=== PATIENT | male | born 1935 | race Caucasian/White ===

== ENCOUNTER → 2017-10-30 00:58 | Outpatient (CLI) | payer MEDICARE, SELFPAY ==
--- NOTE | 2017-10-30 12:37 | DI.REPORT_ITS ---
SYMPTOM/DIAGNOSIS: COUGH, R05 PA AND LATERAL CHEST: 10/30 The heart is mildly enlarged. Minimal streaky infrapulmonary radiodensities are noted in the lung bases, probably unchanged from previous examination of March 2011. No acute infiltrates seen. No pleural effusion seen. CONCLUSION: No evidence of acute disease.
== END ==
PROVIDERS: PCP Family Medicine; Visit Provider Family Medicine
DX: R05 Cough (principal)
CPT/HCPCS: 71046

== ENCOUNTER → 2017-10-30 15:08 | Outpatient (CLI) | payer MEDICARE, SELFPAY | PROVIDERS: PCP Family Medicine; Visit Provider Internal Medicine Hematology & Oncology | DX: D46.Z Other myelodysplastic syndromes (principal) | CPT/HCPCS: 36415; 80053; 86850; 86900; 86901; 86920; 85025 ==

== ENCOUNTER 2017-10-31 03:10 | Outpatient (RCR) | payer MEDICARE, SELFPAY ==
[2017-10-30 15:45] LABS: Abs Immature Grans 0.03 k/cumm (0.0-0.09); Absolute Lymphocyte Count 0.55 k/cumm (1.2-3.4); Absolute Monocyte Count 0.13 k/cumm (0.11-0.7); Absolute Neutrophil Count 0.99 k/cumm (1.2-6.7); HCT 25.5 % (40.0-50.0); HGB 8.2 g/dL (13.5-17.5); Immature Grans % 1.8; Lymphocytes % 32.4; Mean Corp. HGB Concentration 32.2 g/dL (32.0-36.0); Mean Corpuscular Hemoglobin 31.4 pg (27.0-33.0); Mean Corpuscular Volume 97.7 fL (80-95); Mean Platelet Volume 11.6 fL (8.0-11.0); Monocytes % 7.6; Neutrophils % 58.2; Platelet Count 107 x1000/uL (130-400); RBC 2.61 m/cumm (4.50-6.00)
[2017-10-30 16:40] LABS: Anisocytosis 3+; Diff Comment RBC Morph Reviewed; Poikilocytes 3+; Tear Drop Cells 2+
[2017-10-30 16:41] LABS: Ovalocytes 2+
[2017-10-30 16:42] LABS: ALT 26 U/L (12-78); AST 14 U/L (15-37); Albumin 3.3 g/dL (3.4-5.0); Alkaline Phosphatase 80 U/L (46-116); Anion Gap 11.4 mmol/L (3-11); BUN 29 mg/dL (7-18); Bilirubin, Total 0.8 mg/dL (0.2-1.0); CO2 24.6 mmol/L (21.0-32.0); CREATININE 1.51 mg/dL (0.70-1.30); Calcium 8.1 mg/dL (8.5-10.1); Chloride 108 mmol/L (98-107); Estimated GFR 44.57 (mL/min/1.73m2); Glucose 97 mg/dL (70-100); Potassium 4.5 mmol/L (3.5-5.1); Sodium 144 mmol/L (136-145); Total Protein 5.7 g/dL (6.4-8.2)
[2017-10-31] MEDS: Normal Saline Flush 10 ML SYR IVP (10:05)
[2017-10-31 10:24] VITALS: BP 152/59; PULSE 60; RESP 18; TEMP 36.4
[2017-10-31 10:30] VITALS: BP 144/54; PULSE 58; RESP 17; TEMP 36.4
[2017-10-31 10:45] VITALS: BP 145/53; PULSE 60; RESP 18; TEMP 36.5
[2017-10-31 11:15] VITALS: BP 141/64; PULSE 57; RESP 18; TEMP 36.4
[2017-10-31 12:13] VITALS: BP 185/67; PULSE 60; RESP 17; TEMP 36.3
[2017-10-31 12:43] VITALS: BP 133/65; PULSE 59; RESP 18; TEMP 36.5
[2017-11-13] MEDS: Normal Saline Flush 10 ML SYR IVP (09:50)
[2017-11-13] MEDS: Heparin 500 UNITS/5 ML SYRINGE IV (09:50)
[2017-11-13 10:17] LABS: Abs Immature Grans 0.04 k/cumm (0.0-0.09); HCT 23.6 % (40.0-50.0); HGB 7.7 g/dL (13.5-17.5); Mean Corp. HGB Concentration 32.6 g/dL (32.0-36.0); Mean Corpuscular Hemoglobin 32.4 pg (27.0-33.0); Mean Corpuscular Volume 99.2 fL (80-95); Mean Platelet Volume 11.1 fL (8.0-11.0); RBC 2.38 m/cumm (4.50-6.00); RBC Distribution Width 17.6 % (11.8-14.1)
[2017-11-13 10:30] LABS: ALT 27 U/L (12-78); AST 16 U/L (15-37); Alkaline Phosphatase 85 U/L (46-116); Anion Gap 7.7 mmol/L (3-11); BUN 29 mg/dL (7-18); CO2 26.3 mmol/L (21.0-32.0); Calcium 7.8 mg/dL (8.5-10.1); Chloride 108 mmol/L (98-107); Estimated GFR 48.64 (mL/min/1.73m2); Glucose 143 mg/dL (70-100); Potassium 4.1 mmol/L (3.5-5.1); Sodium 142 mmol/L (136-145); Total Protein 5.7 g/dL (6.4-8.2)
[2017-11-13 10:40] LABS: White Blood Cell Count 1.67 k/cumm (4.4-10.8)
[2017-11-13 10:42] LABS: Absolute Monocyte Count 0.02 k/cumm (0.11-0.7); Platelet Count 69 x1000/uL (130-400)
[2017-11-13 10:43] LABS: Absolute Lymphocyte Count 0.62 k/cumm (1.2-3.4); Atypical Lymphocytes % 1; Diff Comment Manual Differential; Hypochromasia 2+; Schistocytes 2+
[2017-11-13 10:44] LABS: Poikilocytes 2+
[2017-11-14] VITALS (12 sets, daily range): BP systolic 151–186; BP diastolic 54–72; PULSE 58–68; RESP 17–18; TEMP 36.5–37; O2SAT 93–95
== END 2017-11-15 ==
LOC: INF 08:53
PROVIDERS: PCP Family Medicine; Visit Provider Internal Medicine Hematology & Oncology
DX: D46.Z Other myelodysplastic syndromes (principal); Z45.2 Encounter for adjustment and management of vascular access device
CPT/HCPCS: 36430; 36591 ×2; P9016 ×2; 36415; 80053; 86850; 86900; 86901; 86920; 85025

== ENCOUNTER 2017-12-11 01:27 | Outpatient (RCR) | payer MEDICARE, SELFPAY ==
[2017-11-21] MEDS: Heparin 500 UNITS/5 ML SYRINGE IV (09:50)
[2017-11-21] MEDS: Normal Saline Flush 10 ML SYR IVP (09:50)
[2017-11-21 10:18] LABS: Abs Immature Grans 0.01 k/cumm (0.0-0.09); HCT 27.2 % (40.0-50.0); HGB 8.8 g/dL (13.5-17.5); Mean Corp. HGB Concentration 32.4 g/dL (32.0-36.0); Mean Corpuscular Volume 95.8 fL (80-95); RBC 2.84 m/cumm (4.50-6.00); RBC Distribution Width 17.1 % (11.8-14.1)
[2017-11-21 10:40] LABS: ALT 47 U/L (12-78); AST 21 U/L (15-37); Alkaline Phosphatase 83 U/L (46-116); Anion Gap 5.9 mmol/L (3-11); BUN 29 mg/dL (7-18); CO2 25.1 mmol/L (21.0-32.0); CREATININE 1.35 mg/dL (0.70-1.30); Calcium 8.1 mg/dL (8.5-10.1); Chloride 110 mmol/L (98-107); Estimated GFR 50.72 (mL/min/1.73m2); Glucose 104 mg/dL (70-100); Potassium 4.3 mmol/L (3.5-5.1); Sodium 141 mmol/L (136-145); Total Protein 5.7 g/dL (6.4-8.2)
[2017-11-21 11:14] LABS: Platelet Count 49 x1000/uL (130-400); White Blood Cell Count 1.81 k/cumm (4.4-10.8)
[2017-11-21 11:15] LABS: Absolute Lymphocyte Count 0.72 k/cumm (1.2-3.4); Absolute Monocyte Count 0.02 k/cumm (0.11-0.7); Absolute Neutrophil Count 1.05 k/cumm (1.2-6.7); Atypical Lymphocytes % 0
[2017-11-21 11:16] LABS: Diff Comment Manual Differential; Macrocytosis 1+
[2017-11-27] MEDS: Normal Saline Flush 10 ML SYR IVP (09:40)
[2017-11-27] MEDS: Heparin 500 UNITS/5 ML SYRINGE IV (09:40)
[2017-11-27 10:50] LABS: HGB 8.2 g/dL (13.5-17.5); Mean Corp. HGB Concentration 32.8 g/dL (32.0-36.0); Mean Corpuscular Hemoglobin 30.9 pg (27.0-33.0); Mean Corpuscular Volume 94.3 fL (80-95); RBC 2.65 m/cumm (4.50-6.00); RBC Distribution Width 16.9 % (11.8-14.1)
[2017-11-27 10:54] LABS: ALT 27 U/L (12-78); AST 13 U/L (15-37); Albumin 2.9 g/dL (3.4-5.0); Alkaline Phosphatase 87 U/L (46-116); Anion Gap 7.9 mmol/L (3-11); BUN 36 mg/dL (7-18); Bilirubin, Total 0.9 mg/dL (0.2-1.0); CO2 25.1 mmol/L (21.0-32.0); CREATININE 1.52 mg/dL (0.70-1.30); Calcium 7.8 mg/dL (8.5-10.1); Chloride 109 mmol/L (98-107); Estimated GFR 44.24 (mL/min/1.73m2); Glucose 117 mg/dL (70-100); Potassium 4.5 mmol/L (3.5-5.1); Sodium 142 mmol/L (136-145); Total Protein 5.7 g/dL (6.4-8.2)
[2017-11-27 11:28] LABS: White Blood Cell Count 1.96 k/cumm (4.4-10.8)
[2017-11-27 11:29] LABS: Platelet Count 44 x1000/uL (130-400)
[2017-11-27 11:30] LABS: Absolute Monocyte Count 0.08 k/cumm (0.11-0.7); Absolute Neutrophil Count 0.74 k/cumm (1.2-6.7); Atypical Lymphocytes % 2; Diff Comment Manual Differential
[2017-11-27 11:31] LABS: Hypochromasia 1+; Ovalocytes 2+; Poikilocytes 2+; Polychromasia Present
[2017-11-28] MEDS: Normal Saline Flush 10 ML SYR IVP (10:00)
[2017-11-28 10:03] VITALS: BP 165/62; PULSE 80; RESP 18; TEMP 37
[2017-11-28 10:31] VITALS: BP 168/64; PULSE 75; RESP 18; TEMP 36.5
[2017-11-28 10:46] VITALS: BP 157/56; PULSE 73; RESP 18; TEMP 36.7
[2017-11-28 12:16] VITALS: BP 157/56; PULSE 73; RESP 18; TEMP 36.7
[2017-11-28] MEDS: Heparin 500 UNITS/5 ML SYRINGE IV (12:19)
[2017-12-04] MEDS: Heparin 500 UNITS/5 ML SYRINGE IV (09:50)
[2017-12-04] MEDS: Normal Saline Flush 10 ML SYR IVP (09:50)
[2017-12-04 10:24] LABS: Abs Immature Grans 0.04 k/cumm (0.0-0.09); Absolute Lymphocyte Count 0.79 k/cumm (1.2-3.4); Absolute Monocyte Count 0.09 k/cumm (0.11-0.7); Absolute Neutrophil Count 0.88 k/cumm (1.2-6.7); HCT 25.2 % (40.0-50.0); HGB 8.4 g/dL (13.5-17.5); Immature Grans % 2.2; Lymphocytes % 43.9; Mean Corp. HGB Concentration 33.3 g/dL (32.0-36.0); Mean Corpuscular Hemoglobin 31.6 pg (27.0-33.0); Mean Corpuscular Volume 94.7 fL (80-95); Neutrophils % 48.9; Platelet Count 46 x1000/uL (130-400); RBC 2.66 m/cumm (4.50-6.00)
[2017-12-04 10:26] LABS: ALT 57 U/L (12-78); AST 25 U/L (15-37); Albumin 2.8 g/dL (3.4-5.0); Alkaline Phosphatase 101 U/L (46-116); Anion Gap 10.6 mmol/L (3-11); BUN 31 mg/dL (7-18); Bilirubin, Total 0.7 mg/dL (0.2-1.0); CO2 23.4 mmol/L (21.0-32.0); CREATININE 1.27 mg/dL (0.70-1.30); Calcium 7.5 mg/dL (8.5-10.1); Chloride 112 mmol/L (98-107); Estimated GFR 54.43 (mL/min/1.73m2); Glucose 120 mg/dL (70-100); Potassium 4.3 mmol/L (3.5-5.1); Sodium 146 mmol/L (136-145); Total Protein 5.5 g/dL (6.4-8.2)
[2017-12-04 10:46] LABS: Diff Comment Diff Reviewed; Polychromasia Present
[2017-12-04 10:47] LABS: Poikilocytes 2+
[2017-12-04 10:50] LABS: Anisocytosis 2+; Microcytosis 1+
[2017-12-05] VITALS (7 sets, daily range): BP systolic 147–181; BP diastolic 60–72; PULSE 56–76; RESP 18; TEMP 36.9–37.1; O2SAT 93–94
[2017-12-05] MEDS: Normal Saline Flush 10 ML SYR IVP (09:10)
[2017-12-05] MEDS: Heparin 500 UNITS/5 ML SYRINGE IV (12:00)
[2017-12-11] MEDS: Normal Saline Flush 10 ML SYR IVP ×2 (09:00→13:05)
[2017-12-11 09:34] LABS: Abs Immature Grans 0.02 k/cumm (0.0-0.09); Absolute Lymphocyte Count 0.88 k/cumm (1.2-3.4); Absolute Monocyte Count 0.07 k/cumm (0.11-0.7); Absolute Neutrophil Count 0.71 k/cumm (1.2-6.7); HCT 25.1 % (40.0-50.0); HGB 8.1 g/dL (13.5-17.5); Immature Grans % 1.2; Lymphocytes % 52.4; Mean Corp. HGB Concentration 32.3 g/dL (32.0-36.0); Mean Corpuscular Hemoglobin 30.9 pg (27.0-33.0); Mean Corpuscular Volume 95.8 fL (80-95); Monocytes % 4.2; Neutrophils % 42.2; RBC 2.62 m/cumm (4.50-6.00); RBC Distribution Width 17.2 % (11.8-14.1)
[2017-12-11 09:55] LABS: ALT 52 U/L (12-78); AST 20 U/L (15-37); Albumin 2.7 g/dL (3.4-5.0); Alkaline Phosphatase 106 U/L (46-116); Anion Gap 8.4 mmol/L (3-11); BUN 29 mg/dL (7-18); CO2 24.6 mmol/L (21.0-32.0); CREATININE 1.35 mg/dL (0.70-1.30); Calcium 7.8 mg/dL (8.5-10.1); Chloride 111 mmol/L (98-107); Estimated GFR 50.72 (mL/min/1.73m2); Glucose 103 mg/dL (70-100); Potassium 4.5 mmol/L (3.5-5.1); Sodium 144 mmol/L (136-145); Total Protein 5.2 g/dL (6.4-8.2)
[2017-12-11 09:57] LABS: Platelet Count 40 x1000/uL (130-400); White Blood Cell Count 1.68 k/cumm (4.4-10.8)
[2017-12-11 09:58] LABS: Anisocytosis 2+; Basophilic Stippling Present; Poikilocytes 2+
[2017-12-11 13:22] VITALS: BP 166/71; PULSE 69; RESP 18; TEMP 36.9; O2SAT 92
[2017-12-11 13:37] VITALS: BP 157/57; PULSE 61; RESP 18; TEMP 37; O2SAT 92
[2017-12-11 14:07] VITALS: BP 188/66; PULSE 65; RESP 18; TEMP 37.1; O2SAT 93
[2017-12-11 14:50] VITALS: BP 174/65; PULSE 62; RESP 18; TEMP 37; O2SAT 95
[2017-12-11 15:07] VITALS: BP 192/66; PULSE 60; RESP 18; TEMP 37.1
[2017-12-11] MEDS: Heparin 500 UNITS/5 ML SYRINGE IV (15:30)
== END 2017-12-15 23:59 | disposition home or self-care (01) ==
LOC: INF 01:27
PROVIDERS: PCP Family Medicine; Visit Provider Internal Medicine Hematology & Oncology
DX: D46.20 Refractory anemia with excess of blasts, unspecified (principal)
CPT/HCPCS: 36430; 36591; 80053; 86850; 86900; 86901; 86920; 96523; 85025; P9016

== ENCOUNTER 2018-01-15 12:00 | Outpatient (RCR) | payer MEDICARE, SELFPAY ==
[2017-12-18] VITALS (9 sets, daily range): BP systolic 120–165; BP diastolic 40–62; PULSE 41–77; RESP 17–18; TEMP 36.3–37; O2SAT 93–96
[2017-12-18 10:06] LABS: Absolute Lymphocyte Count 0.96 k/cumm (1.2-3.4); Absolute Monocyte Count 0.03 k/cumm (0.11-0.7); Absolute Neutrophil Count 0.62 k/cumm (1.2-6.7); HGB 7.9 g/dL (13.5-17.5); Lymphocytes % 59.6; Mean Corp. HGB Concentration 32.9 g/dL (32.0-36.0); Mean Corpuscular Hemoglobin 30.7 pg (27.0-33.0); Mean Corpuscular Volume 93.4 fL (80-95); Monocytes % 1.9; RBC 2.57 m/cumm (4.50-6.00)
[2017-12-18] MEDS: Normal Saline Flush 10 ML SYR IVP (10:10)
[2017-12-18 10:27] LABS: ALT 43 U/L (12-78); AST 18 U/L (15-37); Albumin 2.8 g/dL (3.4-5.0); Alkaline Phosphatase 89 U/L (46-116); BUN 33 mg/dL (7-18); Bilirubin, Total 0.9 mg/dL (0.2-1.0); CREATININE 1.36 mg/dL (0.70-1.30); Calcium 8.1 mg/dL (8.5-10.1); Chloride 109 mmol/L (98-107); Estimated GFR 50.29 (mL/min/1.73m2); Glucose 109 mg/dL (70-100); Potassium 4.3 mmol/L (3.5-5.1); Sodium 143 mmol/L (136-145); Total Protein 5.4 g/dL (6.4-8.2)
[2017-12-18 10:36] LABS: Neutrophils % 38.5; White Blood Cell Count 1.61 k/cumm (4.4-10.8)
[2017-12-18 10:41] LABS: Diff Comment Diff Reviewed
[2017-12-18 10:42] LABS: Anisocytosis 2+; Microcytosis 1+
[2017-12-18 10:43] LABS: Poikilocytes 2+
[2017-12-18 10:44] LABS: Platelet Count 15 x1000/uL (130-400)
[2017-12-19 08:44] VITALS: BP 197/69; PULSE 64; RESP 18; TEMP 36.7; O2SAT 95
[2017-12-19] MEDS: Normal Saline Flush 10 ML SYR IVP ×2 (09:05→09:30)
[2017-12-19] MEDS: diphenhydrAMINE 25 MG CAP PO (09:05)
[2017-12-19] MEDS: Heparin 500 UNITS/5 ML SYRINGE IV ×2 (09:05→09:59)
[2017-12-19] MEDS: Acetaminophen 325 MG TAB 650 MG PO (09:05)
[2017-12-19 09:18] VITALS: BP 176/72; PULSE 57; RESP 18; TEMP 37; O2SAT 95
[2017-12-19 09:33] VITALS: BP 186/66; PULSE 57; RESP 18; TEMP 36.7; O2SAT 96
[2017-12-19 09:45] VITALS: BP 184/56; PULSE 57; RESP 20; TEMP 36.7; O2SAT 96
[2017-12-25] MEDS: Heparin 500 UNITS/5 ML SYRINGE IV (09:45)
[2017-12-25] MEDS: Normal Saline Flush 10 ML SYR IVP (09:45)
[2017-12-25 10:12] LABS: Abs Immature Grans 0.01 k/cumm (0.0-0.09); Absolute Lymphocyte Count 0.84 k/cumm (1.2-3.4); Absolute Monocyte Count 0.08 k/cumm (0.11-0.7); HCT 25.3 % (40.0-50.0); HGB 8.4 g/dL (13.5-17.5); Immature Grans % 0.7; Lymphocytes % 59.6; Mean Corp. HGB Concentration 33.2 g/dL (32.0-36.0); Mean Corpuscular Hemoglobin 30.8 pg (27.0-33.0); Mean Corpuscular Volume 92.7 fL (80-95); Monocytes % 5.7; RBC 2.73 m/cumm (4.50-6.00); RBC Distribution Width 15.6 % (11.8-14.1)
[2017-12-25 10:24] LABS: ALT 39 U/L (12-78); AST 22 U/L (15-37); Albumin 2.8 g/dL (3.4-5.0); Alkaline Phosphatase 106 U/L (46-116); Anion Gap 10.9 mmol/L (3-11); BUN 32 mg/dL (7-18); Bilirubin, Total 1.1 mg/dL (0.2-1.0); CO2 25.1 mmol/L (21.0-32.0); CREATININE 1.46 mg/dL (0.70-1.30); Calcium 8.2 mg/dL (8.5-10.1); Chloride 109 mmol/L (98-107); Estimated GFR 46.34 (mL/min/1.73m2); Glucose 110 mg/dL (70-100); Potassium 4.1 mmol/L (3.5-5.1); Sodium 145 mmol/L (136-145); Total Protein 5.7 g/dL (6.4-8.2); White Blood Cell Count 1.41 k/cumm (4.4-10.8)
[2017-12-25 10:25] LABS: Absolute Neutrophil Count 0.48 k/cumm (1.2-6.7); Platelet Count 14 x1000/uL (130-400)
[2017-12-25 10:26] LABS: Anisocytosis 1+; Microcytosis 1+; Polychromasia Present
[2017-12-25 10:27] LABS: Poikilocytes 1+
[2017-12-26] VITALS (7 sets, daily range): BP systolic 133–178; BP diastolic 53–73; PULSE 66–75; RESP 18; TEMP 36–37; O2SAT 90–97
[2017-12-26] MEDS: Normal Saline Flush 10 ML SYR IVP (09:51)
[2017-12-26] MEDS: Heparin 500 UNITS/5 ML SYRINGE IV (09:52)
[2018-01-01] MEDS: Normal Saline Flush 10 ML SYR IVP ×2 (08:55→11:15)
[2018-01-01 09:34] LABS: ALT 33 U/L (12-78); AST 18 U/L (15-37); Alkaline Phosphatase 89 U/L (46-116); Anion Gap 8.7 mmol/L (3-11); BUN 40 mg/dL (7-18); CO2 26.3 mmol/L (21.0-32.0); CREATININE 1.65 mg/dL (0.70-1.30); Calcium 7.9 mg/dL (8.5-10.1); Chloride 109 mmol/L (98-107); Estimated GFR 40.24 (mL/min/1.73m2); Glucose 120 mg/dL (70-100); Potassium 4.3 mmol/L (3.5-5.1); Sodium 144 mmol/L (136-145); Total Protein 5.7 g/dL (6.4-8.2)
[2018-01-01 09:47] LABS: Abs Immature Grans 0.01 k/cumm (0.0-0.09); Absolute Lymphocyte Count 0.74 k/cumm (1.2-3.4); Absolute Monocyte Count 0.08 k/cumm (0.11-0.7); HCT 25.2 % (40.0-50.0); HGB 8.4 g/dL (13.5-17.5); Immature Grans % 0.8; Lymphocytes % 58.7; Mean Corp. HGB Concentration 33.3 g/dL (32.0-36.0); Mean Corpuscular Hemoglobin 30.7 pg (27.0-33.0); Monocytes % 6.3; Neutrophils % 34.2; RBC 2.74 m/cumm (4.50-6.00); RBC Distribution Width 15.7 % (11.8-14.1)
[2018-01-01 09:49] LABS: White Blood Cell Count 1.26 k/cumm (4.4-10.8)
[2018-01-01 09:50] LABS: Absolute Neutrophil Count 0.43 k/cumm (1.2-6.7)
[2018-01-01 09:52] LABS: Platelet Count 22 x1000/uL (130-400)
[2018-01-01 09:53] LABS: Anisocytosis 2+; Diff Comment Diff Reviewed; Microcytosis 1+; Polychromasia Present
[2018-01-01 09:54] LABS: Poikilocytes 2+
[2018-01-01 12:22] VITALS: BP 152/60; PULSE 74; RESP 18; TEMP 36.7; O2SAT 94
[2018-01-01 12:45] VITALS: BP 133/50; PULSE 70; RESP 18; TEMP 36.2; O2SAT 90
[2018-01-01 12:51] VITALS: BP 120/51; PULSE 69; RESP 18; TEMP 36; O2SAT 90
[2018-01-01 13:20] VITALS: BP 131/52; PULSE 68; RESP 18; TEMP 36; O2SAT 92
[2018-01-01] MEDS: Heparin 500 UNITS/5 ML SYRINGE IV (14:23)
[2018-01-01 14:38] VITALS: BP 160/63; PULSE 65; TEMP 36.6
[2018-01-02 09:59] VITALS: BP 139/60; PULSE 62; RESP 18; TEMP 36.9; O2SAT 92
[2018-01-02] MEDS: Normal Saline Flush 10 ML SYR IVP (10:00)
[2018-01-02] MEDS: Heparin 500 UNITS/5 ML SYRINGE IV (10:00)
[2018-01-08] MEDS: Normal Saline Flush 10 ML SYR IVP ×2 (09:40→14:20)
[2018-01-08 10:01] LABS: Abs Immature Grans 0.12 k/cumm (0.0-0.09); Absolute Monocyte Count 0.09 k/cumm (0.11-0.7); HCT 24.9 % (40.0-50.0); HGB 8.3 g/dL (13.5-17.5); Mean Corp. HGB Concentration 33.3 g/dL (32.0-36.0); Mean Corpuscular Hemoglobin 30.4 pg (27.0-33.0); Mean Corpuscular Volume 91.2 fL (80-95); RBC 2.73 m/cumm (4.50-6.00); RBC Distribution Width 16.2 % (11.8-14.1)
[2018-01-08 10:12] LABS: ALT 26 U/L (12-78); AST 16 U/L (15-37); Albumin 2.9 g/dL (3.4-5.0); Alkaline Phosphatase 80 U/L (46-116); Anion Gap 8.6 mmol/L (3-11); BUN 44 mg/dL (7-18); Bilirubin, Total 1.1 mg/dL (0.2-1.0); CO2 26.4 mmol/L (21.0-32.0); CREATININE 1.73 mg/dL (0.70-1.30); Calcium 8.3 mg/dL (8.5-10.1); Chloride 107 mmol/L (98-107); Glucose 115 mg/dL (70-100); Potassium 4.2 mmol/L (3.5-5.1); Sodium 142 mmol/L (136-145); Total Protein 5.6 g/dL (6.4-8.2)
[2018-01-08 10:19] LABS: White Blood Cell Count 1.35 k/cumm (4.4-10.8)
[2018-01-08 10:20] LABS: Platelet Count 26 x1000/uL (130-400)
[2018-01-08 10:21] LABS: Absolute Neutrophil Count 0.47 k/cumm (1.2-6.7)
[2018-01-08 10:22] LABS: Absolute Lymphocyte Count 0.74 k/cumm (1.2-3.4)
[2018-01-08 10:23] LABS: Anisocytosis 2+; Diff Comment Manual Differential; Hypochromasia 2+; Other Cells 1
[2018-01-08 10:24] LABS: Microcytosis 2+; Poikilocytes 2+; Polychromasia Present
[2018-01-08 11:37] VITALS: BP 136/63; PULSE 65; TEMP 36.4
[2018-01-08 11:43] VITALS: BP 146/60; PULSE 65; RESP 18; TEMP 36.1; O2SAT 93
[2018-01-08 11:55] VITALS: BP 144/55; PULSE 62; RESP 18; TEMP 36.4
[2018-01-08 12:28] VITALS: BP 138/56; PULSE 64; RESP 19; TEMP 36.5; O2SAT 92
[2018-01-08 12:40] VITALS: BP 135/54; PULSE 64; RESP 18; TEMP 36.3; O2SAT 94
[2018-01-08] MEDS: Heparin 500 UNITS/5 ML SYRINGE IV (14:15)
[2018-01-15] MEDS: Normal Saline Flush 10 ML SYR IVP ×2 (09:25→14:57)
[2018-01-15 09:44] LABS: Abs Immature Grans 0.04 k/cumm (0.0-0.09); HCT 24.6 % (40.0-50.0); HGB 8.1 g/dL (13.5-17.5); Mean Corp. HGB Concentration 32.9 g/dL (32.0-36.0); Mean Corpuscular Hemoglobin 30.5 pg (27.0-33.0); Mean Corpuscular Volume 92.5 fL (80-95); Mean Platelet Volume 7.4 fL (8.0-11.0); RBC 2.66 m/cumm (4.50-6.00); RBC Distribution Width 16.2 % (11.8-14.1)
[2018-01-15 09:59] LABS: ALT 37 U/L (12-78); AST 20 U/L (15-37); Albumin 2.8 g/dL (3.4-5.0); Alkaline Phosphatase 79 U/L (46-116); Anion Gap 9.4 mmol/L (3-11); BUN 39 mg/dL (7-18); CO2 24.6 mmol/L (21.0-32.0); CREATININE 1.52 mg/dL (0.70-1.30); Calcium 8.1 mg/dL (8.5-10.1); Chloride 110 mmol/L (98-107); Estimated GFR 44.24 (mL/min/1.73m2); Glucose 114 mg/dL (70-100); Potassium 4.2 mmol/L (3.5-5.1); Sodium 144 mmol/L (136-145); Total Protein 5.4 g/dL (6.4-8.2)
[2018-01-15 10:02] LABS: Platelet Count 24 x1000/uL (130-400)
[2018-01-15 10:03] LABS: Absolute Lymphocyte Count 0.97 k/cumm (1.2-3.4); Absolute Monocyte Count 0.09 k/cumm (0.11-0.7); Absolute Neutrophil Count 0.58 k/cumm (1.2-6.7); Other Cells 1
[2018-01-15 10:04] LABS: Anisocytosis 1+; Diff Comment Manual Differential
[2018-01-15 12:27] VITALS: BP 169/66; PULSE 90; RESP 18; TEMP 36.2; O2SAT 93
[2018-01-15 12:45] VITALS: BP 134/56; PULSE 82; RESP 18; TEMP 36.8; O2SAT 96
[2018-01-15 13:00] VITALS: BP 123/53; PULSE 75; RESP 18; TEMP 36.5; O2SAT 91
[2018-01-15 13:30] VITALS: BP 133/42; PULSE 92; RESP 18; TEMP 36.5; O2SAT 93
[2018-01-15 14:32] VITALS: BP 158/53; PULSE 73; RESP 18; TEMP 36.5; O2SAT 72
== END 2018-01-15 23:59 | disposition home or self-care (01) ==
LOC: INF 12:00
PROVIDERS: PCP Family Medicine; Visit Provider Internal Medicine Hematology & Oncology
DX: D46.20 Refractory anemia with excess of blasts, unspecified (principal)
CPT/HCPCS: 36430; 36591; 80053; 86850; 86900; 86901; 86920; 96523; 85025; P9016; P9035

== ENCOUNTER 2018-01-23 15:06 | Outpatient (CLI) | payer MEDICARE, SELFPAY ==
--- NOTE | 2018-01-23 12:32 | DI.CT_ITS ---
SYMPTOMS/DIAGNOSIS: PT WITH LOW PLATELETS, FELL OUT OF BED, NO MS CHANGES, ? SUBDURAL OR BLEED CRANIAL CT: A noncontrast enhanced examination was performed. A right frontal scalp hematoma is demonstrated. There is no evidence of intra or extra-axial hemorrhage. There is no evidence of edema, mass or territorial infarct. There are some small regions of diminished absorption in the frontoparietal white matter bilaterally consistent with small vessel disease. The ventricles are intact. There is no evidence of a skull fracture. There is no evidence of sinus disease save for mild mucoperiosteal thickening in the ethmoid sinus. There is no evidence of a mastoid effusion. SUMMARY: No acute intracranial abnormality is seen. A right frontal scalp hematoma is demonstrated and there is a prominent vessel suggesting the possibility of ongoing hemorrhage.
== END 2018-01-23 15:26 ==
PROVIDERS: PCP Family Medicine; Visit Provider Internal Medicine Hematology & Oncology
DX: D69.6 Thrombocytopenia, unspecified (principal); S00.03XA Contusion of scalp, initial encounter; W06.XXXA Fall from bed, initial encounter
CPT/HCPCS: 70450

== ENCOUNTER 2018-01-30 10:32 | Outpatient (RCR) | payer MEDICARE, SELFPAY ==
[2018-01-30 10:44] VITALS: BP 139/43; PULSE 79; RESP 18; TEMP 36.6; O2SAT 96
== END 2018-02-14 23:59 | disposition home or self-care (01) ==
LOC: INF 10:32
PROVIDERS: PCP Family Medicine; Visit Provider Internal Medicine Hematology & Oncology
DX: D46.20 Refractory anemia with excess of blasts, unspecified (principal)

== ENCOUNTER 2018-02-13 11:15 | Outpatient (RCR) | payer MEDICARE, SELFPAY ==
[2018-01-22] VITALS (15 sets, daily range): BP systolic 130–178; BP diastolic 6–59; PULSE 64–75; RESP 1–20; TEMP 35.8–36.8; O2SAT 94–96
[2018-01-22] MEDS: Normal Saline Flush 10 ML SYR IVP ×2 (07:20→14:10)
[2018-01-22 08:02] LABS: Absolute Basophil Count 0.01 k/cumm (0.0-0.2); HCT 22.5 % (40.0-50.0); HGB 7.5 g/dL (13.5-17.5); Mean Corp. HGB Concentration 33.3 g/dL (32.0-36.0); Mean Corpuscular Hemoglobin 29.8 pg (27.0-33.0); Mean Corpuscular Volume 89.3 fL (80-95); RBC 2.52 m/cumm (4.50-6.00); RBC Distribution Width 15.9 % (11.8-14.1)
[2018-01-22 08:14] LABS: ALT 36 U/L (12-78); AST 20 U/L (15-37); Albumin 2.8 g/dL (3.4-5.0); Alkaline Phosphatase 88 U/L (46-116); Anion Gap 11.1 mmol/L (3-11); BUN 45 mg/dL (7-18); Bilirubin, Total 1.3 mg/dL (0.2-1.0); CO2 23.9 mmol/L (21.0-32.0); CREATININE 1.84 mg/dL (0.70-1.30); Calcium 8.3 mg/dL (8.5-10.1); Chloride 107 mmol/L (98-107); Estimated GFR 35.48 (mL/min/1.73m2); Glucose 116 mg/dL (70-100); Potassium 4.1 mmol/L (3.5-5.1); Sodium 142 mmol/L (136-145); Total Protein 5.4 g/dL (6.4-8.2)
[2018-01-22 08:31] LABS: Platelet Count 13 x1000/uL (130-400)
[2018-01-22 08:32] LABS: Absolute Lymphocyte Count 0.65 k/cumm (1.2-3.4); Atypical Lymphocytes % 1
[2018-01-22 08:35] LABS: Diff Comment Manual Differential; RBC Morphology Normal
[2018-01-22 08:40] LABS: Absolute Neutrophil Count 0.41 k/cumm (1.2-6.7)
[2018-01-23 09:26] VITALS: BP 154/58; PULSE 74; RESP 18; TEMP 36.6; O2SAT 97
[2018-01-23] MEDS: Normal Saline Flush 10 ML SYR IVP (09:53)
[2018-01-23 10:05] VITALS: BP 141/45; PULSE 69; RESP 18; TEMP 36.5; O2SAT 98
[2018-01-23 10:10] VITALS: BP 175/52; PULSE 72; RESP 18; TEMP 36.4; O2SAT 93
[2018-01-24 09:27] LABS: Abs Immature Grans 0.02 k/cumm (0.0-0.09); Absolute Lymphocyte Count 0.54 k/cumm (1.2-3.4); Absolute Monocyte Count 0.04 k/cumm (0.11-0.7); Absolute Neutrophil Count 0.51 k/cumm (1.2-6.7); HCT 24.6 % (40.0-50.0); HGB 8.1 g/dL (13.5-17.5); Immature Grans % 1.8; Lymphocytes % 48.6; Mean Corp. HGB Concentration 32.9 g/dL (32.0-36.0); Mean Corpuscular Hemoglobin 29.6 pg (27.0-33.0); Mean Corpuscular Volume 89.8 fL (80-95); Monocytes % 3.6; RBC 2.74 m/cumm (4.50-6.00)
[2018-01-24 09:43] LABS: White Blood Cell Count 1.11 k/cumm (4.4-10.8)
[2018-01-24 09:44] LABS: Platelet Count 15 x1000/uL (130-400)
[2018-01-24 09:45] LABS: Diff Comment Diff Reviewed
[2018-01-24 09:46] LABS: Anisocytosis 1+; Microcytosis 1+; Poikilocytes 1+
[2018-01-24 09:47] LABS: ALT 42 U/L (12-78); AST 21 U/L (15-37); Albumin 2.9 g/dL (3.4-5.0); Alkaline Phosphatase 96 U/L (46-116); Anion Gap 9.5 mmol/L (3-11); BUN 43 mg/dL (7-18); Bilirubin, Total 1.3 mg/dL (0.2-1.0); CO2 26.5 mmol/L (21.0-32.0); CREATININE 1.77 mg/dL (0.70-1.30); Calcium 8.1 mg/dL (8.5-10.1); Chloride 107 mmol/L (98-107); Estimated GFR 37.11 (mL/min/1.73m2); Glucose 109 mg/dL (70-100); Potassium 4.1 mmol/L (3.5-5.1); Sodium 143 mmol/L (136-145); Total Protein 5.6 g/dL (6.4-8.2)
[2018-01-24 11:35] VITALS: BP 142/57; PULSE 61; RESP 18; TEMP 36.7; O2SAT 94
[2018-01-24 11:45] VITALS: BP 145/45; PULSE 69; RESP 18; TEMP 36.6; O2SAT 95
[2018-01-24 12:00] VITALS: BP 148/50; PULSE 67; RESP 18; TEMP 36.7; O2SAT 93
[2018-01-24 12:30] VITALS: BP 132/48; PULSE 69; RESP 18; TEMP 36.5; O2SAT 95
[2018-01-24 14:00] VITALS: BP 149/51; PULSE 75; RESP 18; TEMP 36.5; O2SAT 91
[2018-01-24 14:29] VITALS: BP 149/51; PULSE 75; RESP 18; TEMP 36.5; O2SAT 91
[2018-01-25 10:15] VITALS: TEMP 36.5
[2018-01-25] MEDS: Acetaminophen 325 MG TAB 650 MG PO (10:15)
[2018-01-25 10:25] VITALS: BP 142/55; PULSE 65; RESP 16; TEMP 36.5; O2SAT 94
[2018-01-25] MEDS: Normal Saline Flush 10 ML SYR IVP ×2 (10:40→11:16)
[2018-01-25 10:54] VITALS: BP 148/60; PULSE 62; RESP 18; TEMP 36.6; O2SAT 95
[2018-01-25 11:10] VITALS: BP 156/62; PULSE 61; RESP 18; TEMP 36.5; O2SAT 96
[2018-01-25 11:16] VITALS: BP 152/60; PULSE 61; RESP 16; TEMP 36.5; O2SAT 96
[2018-01-27] MEDS: Normal Saline Flush 10 ML SYR IVP (08:45)
[2018-01-27 09:16] LABS: Abs Immature Grans 0.07 k/cumm (0.0-0.09); HCT 25.9 % (40.0-50.0); HGB 8.5 g/dL (13.5-17.5); Mean Corp. HGB Concentration 32.8 g/dL (32.0-36.0); Mean Corpuscular Hemoglobin 29.7 pg (27.0-33.0); Mean Corpuscular Volume 90.6 fL (80-95); Mean Platelet Volume 9.3 fL (8.0-11.0); RBC 2.86 m/cumm (4.50-6.00); RBC Distribution Width 15.6 % (11.8-14.1)
[2018-01-27 09:28] LABS: ALT 38 U/L (12-78); AST 20 U/L (15-37); Albumin 2.9 g/dL (3.4-5.0); Alkaline Phosphatase 93 U/L (46-116); Anion Gap 8.6 mmol/L (3-11); BUN 41 mg/dL (7-18); Bilirubin, Total 1.3 mg/dL (0.2-1.0); CO2 26.4 mmol/L (21.0-32.0); CREATININE 1.71 mg/dL (0.70-1.30); Calcium 8.2 mg/dL (8.5-10.1); Chloride 106 mmol/L (98-107); Estimated GFR 38.61 (mL/min/1.73m2); Glucose 117 mg/dL (70-100); Potassium 4.1 mmol/L (3.5-5.1); Sodium 141 mmol/L (136-145); Total Protein 5.7 g/dL (6.4-8.2)
[2018-01-27 09:30] LABS: White Blood Cell Count 1.19 k/cumm (4.4-10.8)
[2018-01-27 10:35] LABS: Anisocytosis 1+; Diff Comment Manual Differential; Poikilocytes 1+
[2018-01-27 10:36] LABS: Absolute Neutrophil Count 0.29 k/cumm (1.2-6.7)
[2018-01-27 10:37] LABS: Absolute Lymphocyte Count 0.82 k/cumm (1.2-3.4); Absolute Monocyte Count 0.06 k/cumm (0.11-0.7); Atypical Lymphocytes % 11
[2018-01-27 10:38] LABS: Hypochromasia 1+; Microcytosis 1+; Platelet Count 17 x1000/uL (130-400)
[2018-01-28] MEDS: Acetaminophen 325 MG TAB 650 MG PO (09:22)
[2018-01-28] MEDS: diphenhydrAMINE 25 MG CAP PO (09:22)
[2018-01-28 09:25] VITALS: BP 128/50; PULSE 70; RESP 16; TEMP 36.7; O2SAT 95
[2018-01-28 09:40] VITALS: BP 150/57; PULSE 63; RESP 16; TEMP 36.6; O2SAT 95
[2018-01-28 09:45] VITALS: BP 155/57; PULSE 65; RESP 18; TEMP 36.5; O2SAT 95
[2018-01-28] MEDS: Normal Saline Flush 10 ML SYR IVP (09:48)
[2018-01-28] MEDS: Heparin 500 UNITS/5 ML SYRINGE IV (09:48)
[2018-01-28 11:10] VITALS: BP 130/45; PULSE 72; RESP 18; TEMP 36.6; O2SAT 96
[2018-01-30] VITALS (8 sets, daily range): BP systolic 129–172; BP diastolic 45–65; PULSE 65–79; RESP 18; TEMP 36.6–36.9; O2SAT 92–97
[2018-01-30] MEDS: Normal Saline Flush 10 ML SYR IVP (08:40)
[2018-01-30 09:31] LABS: HGB 7.8 g/dL (13.5-17.5); Mean Corp. HGB Concentration 32.5 g/dL (32.0-36.0); Mean Corpuscular Hemoglobin 29.5 pg (27.0-33.0); Mean Corpuscular Volume 90.9 fL (80-95); RBC 2.64 m/cumm (4.50-6.00); RBC Distribution Width 15.6 % (11.8-14.1)
[2018-01-30 09:45] LABS: ALT 30 U/L (12-78); AST 15 U/L (15-37); Alkaline Phosphatase 86 U/L (46-116); Anion Gap 8.7 mmol/L (3-11); BUN 36 mg/dL (7-18); Bilirubin, Total 1.1 mg/dL (0.2-1.0); CO2 25.3 mmol/L (21.0-32.0); CREATININE 1.48 mg/dL (0.70-1.30); Calcium 8.5 mg/dL (8.5-10.1); Chloride 107 mmol/L (98-107); Estimated GFR 45.62 (mL/min/1.73m2); Glucose 112 mg/dL (70-100); Potassium 4.1 mmol/L (3.5-5.1); Sodium 141 mmol/L (136-145); Total Protein 5.8 g/dL (6.4-8.2)
[2018-01-30 09:52] LABS: Absolute Basophil Count 0.01 k/cumm (0.0-0.2); Absolute Lymphocyte Count 0.71 k/cumm (1.2-3.4); Absolute Monocyte Count 0.02 k/cumm (0.11-0.7)
[2018-01-30 09:55] LABS: Anisocytosis 1+; Diff Comment Manual Differential
[2018-01-30 09:59] LABS: Absolute Neutrophil Count 0.35 k/cumm (1.2-6.7); Platelet Count 18 x1000/uL (130-400); White Blood Cell Count 1.09 k/cumm (4.4-10.8)
[2018-01-31 12:59] VITALS: BP 158/69; PULSE 84; RESP 16; TEMP 36.4; O2SAT 93
[2018-01-31] MEDS: diphenhydrAMINE 25 MG CAP PO (13:19)
[2018-01-31] MEDS: Acetaminophen 325 MG TAB 650 MG PO (13:19)
[2018-01-31 13:25] VITALS: BP 116/62; PULSE 73; RESP 20; TEMP 36.5; O2SAT 97
[2018-01-31 13:36] VITALS: BP 176/74; PULSE 73; RESP 18; TEMP 36.6; O2SAT 95
[2018-01-31] MEDS: Normal Saline Flush 10 ML SYR IVP (13:40)
[2018-01-31 13:51] VITALS: BP 185/73; PULSE 72; RESP 18; TEMP 36.6; O2SAT 95
[2018-01-31] MEDS: Heparin 500 UNITS/5 ML SYRINGE IV (14:29)
[2018-02-03] MEDS: Normal Saline Flush 10 ML SYR IVP (08:50)
[2018-02-03 09:17] LABS: Abs Immature Grans 0.01 k/cumm (0.0-0.09); Absolute Lymphocyte Count 0.74 k/cumm (1.2-3.4); Absolute Monocyte Count 0.11 k/cumm (0.11-0.7); HCT 28.2 % (40.0-50.0); HGB 9.1 g/dL (13.5-17.5); Immature Grans % 0.8; Lymphocytes % 58.3; Mean Corp. HGB Concentration 32.3 g/dL (32.0-36.0); Mean Corpuscular Hemoglobin 29.4 pg (27.0-33.0); Mean Platelet Volume 10.2 fL (8.0-11.0); Monocytes % 8.7; Neutrophils % 32.2; RBC Distribution Width 15.4 % (11.8-14.1)
[2018-02-03 09:30] LABS: ALT 25 U/L (12-78); AST 16 U/L (15-37); Albumin 3.1 g/dL (3.4-5.0); Alkaline Phosphatase 81 U/L (46-116); Anion Gap 8.4 mmol/L (3-11); BUN 38 mg/dL (7-18); Bilirubin, Total 1.2 mg/dL (0.2-1.0); CO2 26.6 mmol/L (21.0-32.0); CREATININE 1.56 mg/dL (0.70-1.30); Calcium 8.4 mg/dL (8.5-10.1); Chloride 109 mmol/L (98-107); Estimated GFR 42.82 (mL/min/1.73m2); Glucose 116 mg/dL (70-100); Sodium 144 mmol/L (136-145); Total Protein 5.9 g/dL (6.4-8.2)
[2018-02-03 09:41] LABS: White Blood Cell Count 1.27 k/cumm (4.4-10.8)
[2018-02-03 09:42] LABS: Absolute Neutrophil Count 0.41 k/cumm (1.2-6.7); Anisocytosis 1+; Diff Comment Diff Reviewed; Platelet Count 20 x1000/uL (130-400); Polychromasia Present; Tear Drop Cells 2+
[2018-02-03 11:49] VITALS: BP 185/73; PULSE 72; RESP 18; TEMP 36.6; O2SAT 95
[2018-02-05] MEDS: Normal Saline Flush 10 ML SYR IVP (08:40)
[2018-02-05 09:02] VITALS: BP 185/73; PULSE 72; RESP 18; TEMP 36.6; O2SAT 95
[2018-02-05 09:15] LABS: HCT 25.8 % (40.0-50.0); HGB 8.7 g/dL (13.5-17.5); Mean Corp. HGB Concentration 33.7 g/dL (32.0-36.0); Mean Corpuscular Hemoglobin 30.5 pg (27.0-33.0); Mean Corpuscular Volume 90.5 fL (80-95); Mean Platelet Volume 10.8 fL (8.0-11.0); RBC 2.85 m/cumm (4.50-6.00); RBC Distribution Width 15.5 % (11.8-14.1)
[2018-02-05 09:22] LABS: Platelet Count 20 x1000/uL (130-400); White Blood Cell Count 1.24 k/cumm (4.4-10.8)
[2018-02-05 09:27] LABS: ALT 26 U/L (12-78); AST 15 U/L (15-37); Alkaline Phosphatase 74 U/L (46-116); Anion Gap 9.1 mmol/L (3-11); BUN 42 mg/dL (7-18); CO2 26.9 mmol/L (21.0-32.0); CREATININE 1.67 mg/dL (0.70-1.30); Calcium 8.3 mg/dL (8.5-10.1); Chloride 108 mmol/L (98-107); Estimated GFR 39.58 (mL/min/1.73m2); Glucose 124 mg/dL (70-100); Sodium 144 mmol/L (136-145); Total Protein 5.7 g/dL (6.4-8.2)
[2018-02-05 09:41] LABS: Absolute Eosinophil Count 0.01 k/cumm (0.0-0.7); Absolute Lymphocyte Count 0.73 k/cumm (1.2-3.4); Absolute Monocyte Count 0.12 k/cumm (0.11-0.7)
[2018-02-05 09:42] LABS: Hypochromasia 2+; Polychromasia Present
[2018-02-05 09:44] LABS: Poikilocytes 2+
[2018-02-05 12:37] LABS: Absolute Neutrophil Count 0.36 k/cumm (1.2-6.7)
[2018-02-07] MEDS: Normal Saline Flush 10 ML SYR IVP ×2 (08:35→10:23)
[2018-02-07 09:12] LABS: Abs Immature Grans 0.01 k/cumm (0.0-0.09); Absolute Lymphocyte Count 0.89 k/cumm (1.2-3.4); Absolute Monocyte Count 0.11 k/cumm (0.11-0.7); HGB 8.5 g/dL (13.5-17.5); Immature Grans % 0.7; Lymphocytes % 65.9; Mean Corp. HGB Concentration 32.7 g/dL (32.0-36.0); Mean Corpuscular Hemoglobin 29.9 pg (27.0-33.0); Mean Corpuscular Volume 91.5 fL (80-95); Mean Platelet Volume 9.2 fL (8.0-11.0); Monocytes % 8.1; Neutrophils % 25.3; RBC 2.84 m/cumm (4.50-6.00); RBC Distribution Width 15.5 % (11.8-14.1)
[2018-02-07 09:28] LABS: ALT 26 U/L (12-78); AST 16 U/L (15-37); Albumin 3.1 g/dL (3.4-5.0); Alkaline Phosphatase 78 U/L (46-116); BUN 54 mg/dL (7-18); Bilirubin, Total 0.9 mg/dL (0.2-1.0); CREATININE 1.84 mg/dL (0.70-1.30); Calcium 8.6 mg/dL (8.5-10.1); Chloride 108 mmol/L (98-107); Estimated GFR 35.39 (mL/min/1.73m2); Glucose 124 mg/dL (70-100); Potassium 4.2 mmol/L (3.5-5.1); Sodium 144 mmol/L (136-145); Total Protein 5.9 g/dL (6.4-8.2)
[2018-02-07 09:35] LABS: White Blood Cell Count 1.35 k/cumm (4.4-10.8)
[2018-02-07 09:36] LABS: Absolute Neutrophil Count 0.34 k/cumm (1.2-6.7); Platelet Count 24 x1000/uL (130-400)
[2018-02-07 09:37] LABS: Anisocytosis 1+; Diff Comment Diff Reviewed; Macrocytosis 1+; Microcytosis 1+
[2018-02-07 09:38] LABS: Poikilocytes 1+
[2018-02-07] MEDS: Heparin 500 UNITS/5 ML SYRINGE IV (10:23)
[2018-02-10] MEDS: Normal Saline Flush 10 ML SYR IVP (08:45)
[2018-02-10 09:29] LABS: HCT 24.4 % (40.0-50.0); Mean Corp. HGB Concentration 32.8 g/dL (32.0-36.0); Mean Corpuscular Volume 91.4 fL (80-95); Mean Platelet Volume 10.7 fL (8.0-11.0); RBC 2.67 m/cumm (4.50-6.00); RBC Distribution Width 15.5 % (11.8-14.1)
[2018-02-10 09:41] LABS: ALT 30 U/L (12-78); AST 19 U/L (15-37); Albumin 3.1 g/dL (3.4-5.0); Alkaline Phosphatase 78 U/L (46-116); Anion Gap 10.1 mmol/L (3-11); BUN 51 mg/dL (7-18); Bilirubin, Total 1.2 mg/dL (0.2-1.0); CO2 24.9 mmol/L (21.0-32.0); CREATININE 1.82 mg/dL (0.70-1.30); Calcium 8.5 mg/dL (8.5-10.1); Chloride 109 mmol/L (98-107); Estimated GFR 35.84 (mL/min/1.73m2); Glucose 115 mg/dL (70-100); Potassium 4.2 mmol/L (3.5-5.1); Sodium 144 mmol/L (136-145); Total Protein 5.8 g/dL (6.4-8.2)
[2018-02-10 09:57] LABS: Platelet Count 28 x1000/uL (130-400); White Blood Cell Count 1.32 k/cumm (4.4-10.8)
[2018-02-10 09:59] LABS: Absolute Lymphocyte Count 0.92 k/cumm (1.2-3.4); Absolute Monocyte Count 0.05 k/cumm (0.11-0.7); Absolute Neutrophil Count 0.32 k/cumm (1.2-6.7); Atypical Lymphocytes % 1; Diff Comment Manual Differential
[2018-02-10 10:00] LABS: Anisocytosis 2+; Hypochromasia 1+; Macrocytosis 1+; Microcytosis 1+; Poikilocytes 1+; Polychromasia Present
[2018-02-10 11:01] VITALS: BP 135/50; PULSE 69; RESP 18; TEMP 36.6; O2SAT 94
[2018-02-10 11:17] VITALS: BP 125/47; PULSE 73; RESP 18; TEMP 36.6; O2SAT 95
[2018-02-10 11:32] VITALS: BP 124/45; PULSE 65; RESP 18; TEMP 36.6; O2SAT 96
[2018-02-10 11:52] VITALS: BP 124/45; PULSE 65; RESP 18; TEMP 36.6; O2SAT 96
[2018-02-10 12:02] VITALS: BP 138/51; PULSE 69; RESP 18; TEMP 36.6; O2SAT 95
[2018-02-10 13:02] VITALS: BP 147/52; PULSE 70; RESP 18; TEMP 36.6; O2SAT 18
[2018-02-13 09:37] LABS: Abs Immature Grans 0.02 k/cumm (0.0-0.09); HCT 25.2 % (40.0-50.0); HGB 8.4 g/dL (13.5-17.5); Mean Corp. HGB Concentration 33.3 g/dL (32.0-36.0); Mean Corpuscular Hemoglobin 30.4 pg (27.0-33.0); Mean Corpuscular Volume 91.3 fL (80-95); Mean Platelet Volume 8.5 fL (8.0-11.0); RBC 2.76 m/cumm (4.50-6.00); RBC Distribution Width 15.6 % (11.8-14.1)
[2018-02-13 09:42] LABS: ALT 28 U/L (12-78); AST 18 U/L (15-37); Alkaline Phosphatase 78 U/L (46-116); Bilirubin, Total 1.3 mg/dL (0.2-1.0); CREATININE 1.62 mg/dL (0.70-1.30); Calcium 8.1 mg/dL (8.5-10.1); Chloride 109 mmol/L (98-107); Glucose 118 mg/dL (70-100); Potassium 4.3 mmol/L (3.5-5.1); Sodium 144 mmol/L (136-145); Total Protein 5.8 g/dL (6.4-8.2)
[2018-02-13 09:54] LABS: BUN 41 mg/dL (7-18)
[2018-02-13 09:58] LABS: White Blood Cell Count 1.55 k/cumm (4.4-10.8)
[2018-02-13 10:00] LABS: Platelet Count 25 x1000/uL (130-400)
[2018-02-13 10:01] LABS: Absolute Neutrophil Count 0.39 k/cumm (1.2-6.7)
[2018-02-13 10:02] LABS: Absolute Lymphocyte Count 0.93 k/cumm (1.2-3.4); Absolute Monocyte Count 0.17 k/cumm (0.11-0.7); Anisocytosis 2+; Diff Comment Manual Differential; Hypochromasia 2+; Ovalocytes 2+; Schistocytes 2+
[2018-02-13 11:18] VITALS: BP 159/55; PULSE 65; RESP 13; TEMP 36.5; O2SAT 96
[2018-02-13 11:35] VITALS: BP 160/55; PULSE 64; RESP 14; TEMP 36.5; O2SAT 96
[2018-02-13] MEDS: Furosemide 40 MG TAB PO (12:31)
[2018-02-13 12:32] VITALS: BP 141/52; PULSE 62; RESP 14; TEMP 36.5; O2SAT 97
[2018-02-13] MEDS: Heparin 500 UNITS/5 ML SYRINGE IV (13:00)
[2018-02-13] MEDS: Normal Saline Flush 10 ML SYR IVP (13:00)
== END 2018-02-14 23:59 | disposition home or self-care (01) ==
LOC: INF 11:15
PROVIDERS: PCP Family Medicine; Visit Provider Internal Medicine Hematology & Oncology
DX: D46.20 Refractory anemia with excess of blasts, unspecified (principal)
CPT/HCPCS: 36430; 36591; 80053; 86850; 86900; 86901; 86920; 96523; 70450; 85025; P9016; P9035

== ENCOUNTER 2018-03-01 15:00 | Outpatient (CLI) | payer MEDICARE, SELFPAY ==
--- NOTE | 2018-03-01 12:05 | DI.CT_ITS ---
SYMPTOM/DIAGNOSIS: ALTERED MENTAL STATUS CT BRAIN: Noncontrast examination was performed. Comparison is 01/23/18 The ventricles and sulci are consistent with the patient's age. There are areas of decreased attenuation in the white matter consistent with small vessel ischemic disease. No acute infarct, hemorrhage,midline shift or mass effect is identified. The ventricles are intact. The basilar cisterns are unremarkable. The visualized paranasal sinuses are clear. No fluid levels are seen. The mastoid air cells show mild opacification. No skull fracture is identified. IMPRESSION: No acute intracranial process.
== END 2018-03-01 15:20 ==
PROVIDERS: PCP Family Medicine; Visit Provider Internal Medicine Hematology & Oncology
DX: R41.82 Altered mental status, unspecified (principal); I67.9 Cerebrovascular disease, unspecified
CPT/HCPCS: 70450

== ENCOUNTER 2018-03-17 01:19 | Outpatient (RCR) | payer MEDICARE, SELFPAY ==
[2018-02-17] MEDS: Normal Saline Flush 10 ML SYR IVP ×2 (09:02→13:28)
[2018-02-17 09:24] LABS: HCT 25.8 % (40.0-50.0); HGB 8.4 g/dL (13.5-17.5); Mean Corp. HGB Concentration 32.6 g/dL (32.0-36.0); Mean Corpuscular Hemoglobin 29.7 pg (27.0-33.0); Mean Corpuscular Volume 91.2 fL (80-95); Mean Platelet Volume 9.9 fL (8.0-11.0); Platelet Count 35 x1000/uL (130-400); RBC 2.83 m/cumm (4.50-6.00); RBC Distribution Width 15.3 % (11.8-14.1)
[2018-02-17 09:37] LABS: ALT 28 U/L (12-78); AST 17 U/L (15-37); Albumin 2.9 g/dL (3.4-5.0); Alkaline Phosphatase 77 U/L (46-116); Anion Gap 9.5 mmol/L (3-11); BUN 39 mg/dL (7-18); Bilirubin, Total 1.2 mg/dL (0.2-1.0); CO2 26.5 mmol/L (21.0-32.0); CREATININE 1.46 mg/dL (0.70-1.30); Calcium 8.3 mg/dL (8.5-10.1); Chloride 109 mmol/L (98-107); Estimated GFR 46.23 (mL/min/1.73m2); Glucose 114 mg/dL (70-100); Sodium 145 mmol/L (136-145); Total Protein 5.5 g/dL (6.4-8.2)
[2018-02-17 09:47] LABS: White Blood Cell Count 1.62 k/cumm (4.4-10.8)
[2018-02-17 09:48] LABS: Absolute Lymphocyte Count 0.86 k/cumm (1.2-3.4); Atypical Lymphocytes % 1
[2018-02-17 09:49] LABS: Anisocytosis 2+; Diff Comment Manual Differential; Hypochromasia 2+; Macrocytosis 1+; Microcytosis 2+; Schistocytes 1+
[2018-02-17 09:50] LABS: Nucleated RBC 1 /100WBC
[2018-02-17 09:51] LABS: Absolute Neutrophil Count 0.63 k/cumm (1.2-6.7)
[2018-02-17 12:46] VITALS: BP 150/53; PULSE 86; RESP 18; TEMP 36.5; O2SAT 94
[2018-02-17 12:59] VITALS: BP 155/69; PULSE 77; RESP 18; TEMP 36.5; O2SAT 91
[2018-02-17 13:30] VITALS: BP 140/46; PULSE 76; RESP 18; TEMP 36.7; O2SAT 96
[2018-02-17 13:54] VITALS: BP 136/53; PULSE 79; RESP 18; TEMP 36.6; O2SAT 94
[2018-02-17] MEDS: Furosemide 40 MG TAB PO (14:07)
[2018-02-17 14:50] VITALS: BP 159/46; PULSE 76; RESP 18; TEMP 36.6; O2SAT 94
[2018-02-20] MEDS: Normal Saline Flush 10 ML SYR IVP (08:40)
[2018-02-20 09:01] LABS: Abs Immature Grans 0.06 k/cumm (0.0-0.09); HCT 26.8 % (40.0-50.0); HGB 8.7 g/dL (13.5-17.5); Mean Corp. HGB Concentration 32.5 g/dL (32.0-36.0); Mean Corpuscular Hemoglobin 29.5 pg (27.0-33.0); Mean Corpuscular Volume 90.8 fL (80-95); Mean Platelet Volume 8.5 fL (8.0-11.0); RBC 2.95 m/cumm (4.50-6.00); RBC Distribution Width 15.5 % (11.8-14.1)
[2018-02-20 09:14] LABS: ALT 27 U/L (12-78); AST 18 U/L (15-37); Albumin 2.9 g/dL (3.4-5.0); Alkaline Phosphatase 82 U/L (46-116); Anion Gap 8.1 mmol/L (3-11); BUN 41 mg/dL (7-18); Bilirubin, Total 1.3 mg/dL (0.2-1.0); CO2 26.9 mmol/L (21.0-32.0); CREATININE 1.64 mg/dL (0.70-1.30); Calcium 8.4 mg/dL (8.5-10.1); Chloride 109 mmol/L (98-107); Estimated GFR 40.42 (mL/min/1.73m2); Glucose 116 mg/dL (70-100); Potassium 4.4 mmol/L (3.5-5.1); Sodium 144 mmol/L (136-145); Total Protein 5.6 g/dL (6.4-8.2)
[2018-02-20 09:20] LABS: Platelet Count 25 x1000/uL (130-400); White Blood Cell Count 1.72 k/cumm (4.4-10.8)
[2018-02-20 09:21] LABS: Absolute Lymphocyte Count 0.96 k/cumm (1.2-3.4); Absolute Monocyte Count 0.09 k/cumm (0.11-0.7); Absolute Neutrophil Count 0.67 k/cumm (1.2-6.7); Anisocytosis 1+; Atypical Lymphocytes % 5; Diff Comment Manual Differential
[2018-02-20 09:22] LABS: Poikilocytes 1+
[2018-02-24] MEDS: Normal Saline Flush 10 ML SYR IVP (09:03)
[2018-02-24 09:28] LABS: Abs Immature Grans 0.02 k/cumm (0.0-0.09); Absolute Lymphocyte Count 0.75 k/cumm (1.2-3.4); Absolute Monocyte Count 0.07 k/cumm (0.11-0.7); Immature Grans % 1.5; Mean Corp. HGB Concentration 33.3 g/dL (32.0-36.0); Mean Corpuscular Hemoglobin 30.2 pg (27.0-33.0); Mean Corpuscular Volume 90.6 fL (80-95); Mean Platelet Volume 8.5 fL (8.0-11.0); Monocytes % 5.2; Neutrophils % 37.3; RBC 2.65 m/cumm (4.50-6.00); RBC Distribution Width 15.1 % (11.8-14.1)
[2018-02-24 09:32] LABS: ALT 28 U/L (12-78); AST 16 U/L (15-37); Albumin 2.9 g/dL (3.4-5.0); Alkaline Phosphatase 90 U/L (46-116); Anion Gap 10.6 mmol/L (3-11); BUN 38 mg/dL (7-18); Bilirubin, Total 1.4 mg/dL (0.2-1.0); CO2 26.4 mmol/L (21.0-32.0); CREATININE 1.52 mg/dL (0.70-1.30); Calcium 8.2 mg/dL (8.5-10.1); Chloride 109 mmol/L (98-107); Estimated GFR 44.13 (mL/min/1.73m2); Glucose 123 mg/dL (70-100); Sodium 146 mmol/L (136-145); Total Protein 5.5 g/dL (6.4-8.2)
[2018-02-24 09:34] LABS: White Blood Cell Count 1.34 k/cumm (4.4-10.8)
[2018-02-24 09:41] LABS: Diff Comment Diff Reviewed; Platelet Count 23 x1000/uL (130-400)
[2018-02-24 11:09] VITALS: BP 160/51; PULSE 63; RESP 18; TEMP 36.7; O2SAT 92
[2018-02-24 11:10] VITALS: BP 154/57; PULSE 63; RESP 18; TEMP 36.5; O2SAT 97
[2018-02-24 11:25] VITALS: BP 165/48; PULSE 60; RESP 18; TEMP 36.6; O2SAT 94
[2018-02-24 12:13] VITALS: BP 177/58; PULSE 64; RESP 18; TEMP 36.4; O2SAT 95
[2018-02-24 12:55] VITALS: BP 159/54; PULSE 62; RESP 18; TEMP 36.7; O2SAT 94
[2018-02-24] MEDS: Furosemide 40 MG TAB PO (12:59)
[2018-02-24 13:05] VITALS: BP 132/51; PULSE 65; RESP 18; TEMP 36.6; O2SAT 95
[2018-02-27] MEDS: Normal Saline Flush 10 ML SYR IVP (09:01)
[2018-02-27 09:02] LABS: Abs Immature Grans 0.03 k/cumm (0.0-0.09); HCT 24.3 % (40.0-50.0); HGB 8.2 g/dL (13.5-17.5); Mean Corp. HGB Concentration 33.7 g/dL (32.0-36.0); Mean Corpuscular Hemoglobin 30.4 pg (27.0-33.0); Mean Platelet Volume 8.1 fL (8.0-11.0); RBC Distribution Width 14.6 % (11.8-14.1)
[2018-02-27 09:15] LABS: ALT 25 U/L (12-78); AST 15 U/L (15-37); Alkaline Phosphatase 88 U/L (46-116); Anion Gap 11.1 mmol/L (3-11); BUN 47 mg/dL (7-18); Bilirubin, Total 1.3 mg/dL (0.2-1.0); CO2 25.9 mmol/L (21.0-32.0); CREATININE 1.74 mg/dL (0.70-1.30); Calcium 8.4 mg/dL (8.5-10.1); Chloride 107 mmol/L (98-107); Estimated GFR 37.75 (mL/min/1.73m2); Glucose 125 mg/dL (70-100); Potassium 4.2 mmol/L (3.5-5.1); Sodium 144 mmol/L (136-145); Total Protein 5.7 g/dL (6.4-8.2)
[2018-02-27 09:33] LABS: Platelet Count 15 x1000/uL (130-400); White Blood Cell Count 1.33 k/cumm (4.4-10.8)
[2018-02-27 09:34] LABS: Absolute Neutrophil Count 0.45 k/cumm (1.2-6.7)
[2018-02-27 09:35] LABS: Absolute Lymphocyte Count 0.84 k/cumm (1.2-3.4); Absolute Monocyte Count 0.04 k/cumm (0.11-0.7); Atypical Lymphocytes % 2; Diff Comment Manual Differential; Hypochromasia 1+
[2018-02-27 10:37] VITALS: BP 148/57; PULSE 60; RESP 18; TEMP 36.5; O2SAT 96
[2018-02-27 12:16] VITALS: BP 132/51; PULSE 65; RESP 18; TEMP 36.6; O2SAT 95
[2018-02-27 12:50] VITALS: BP 113/48; PULSE 62; TEMP 36.5; O2SAT 95
[2018-02-27 13:10] VITALS: BP 122/50; PULSE 54; TEMP 36.4; O2SAT 54
[2018-02-27] MEDS: Furosemide 40 MG TAB PO (14:15)
[2018-02-28 10:10] VITALS: BP 151/54; PULSE 60; TEMP 36.5
[2018-02-28 10:20] VITALS: BP 148/51; PULSE 57; RESP 18; TEMP 36.3; O2SAT 98
[2018-02-28 10:40] VITALS: BP 158/56; PULSE 59; TEMP 36.5; O2SAT 94
[2018-02-28 11:24] LABS: Abs Immature Grans 0.01 k/cumm (0.0-0.09); Absolute Lymphocyte Count 0.47 k/cumm (1.2-3.4); Absolute Monocyte Count 0.08 k/cumm (0.11-0.7); Absolute Neutrophil Count 0.63 k/cumm (1.2-6.7); HCT 23.3 % (40.0-50.0); Immature Grans % 0.8; Lymphocytes % 39.5; Mean Corp. HGB Concentration 34.3 g/dL (32.0-36.0); Mean Corpuscular Hemoglobin 30.4 pg (27.0-33.0); Mean Corpuscular Volume 88.6 fL (80-95); Mean Platelet Volume 8.8 fL (8.0-11.0); Monocytes % 6.7; RBC 2.63 m/cumm (4.50-6.00); RBC Distribution Width 14.6 % (11.8-14.1)
[2018-02-28 11:35] LABS: White Blood Cell Count 1.19 k/cumm (4.4-10.8)
[2018-02-28 11:36] LABS: Diff Comment Diff Reviewed; Platelet Count 20 x1000/uL (130-400); Poikilocytes 1+
[2018-03-01 10:34] VITALS: BP 143/57; PULSE 57; TEMP 36.2
[2018-03-01 10:49] VITALS: BP 143/57; PULSE 57; TEMP 36.2
[2018-03-01 11:04] VITALS: BP 166/57; PULSE 60; TEMP 36.1
[2018-03-01 11:15] VITALS: BP 156/66; PULSE 58; TEMP 36.2
[2018-03-01 11:30] VITALS: BP 167/58; PULSE 60; RESP 18; TEMP 36.5; O2SAT 96
[2018-03-01 11:45] VITALS: BP 169/61; PULSE 59; RESP 18; TEMP 36.2
--- NOTE | 2018-03-01 12:32 | DI.VRAD_ITS ---
EXAM: CT Head Without Contrast EXAM DATE/TIME: 03/01/2018 11:45 AM CLINICAL HISTORY: 83 years old, male; Signs and symptoms; Altered mental status/memory loss; Confusion or disorientation; Patient HX: Cancer patient, AMS, low platelet count, RT eye discoloration. TECHNIQUE: Axial computed tomography images of the head/brain without contrast. All CT scans at this facility use at least one of these dose optimization techniques: automated exposure control; mA and/or kV adjustment per patient size (includes targeted exams where dose is matched to clinical indication); or iterative reconstruction. Coronal and sagittal reformatted images were created and reviewed. COMPARISON: CT HEAD WO 01/23/2018 12:25 PM FINDINGS: Brain: No acute intracranial hemorrhage. There is mild diffuse heterogeneity of the white matter attenuation, consistent with chronic white matter ischemic changes. Mild cerebral atrophy Ventricles: Normal. No ventriculomegaly. Bones/joints: Normal. No acute fracture. Sinuses: Normal as visualized. No acute sinusitis. Mastoid air cells: Normal as visualized. No mastoid effusion. Soft tissues: Normal. IMPRESSION: No acute intracranial hemorrhage. Aspect score 10 Dictated and Authenticated by: Talia Mayen MD. Ordering:HUONG Stovall MD
[2018-03-03] MEDS: Normal Saline Flush 10 ML SYR IVP (08:57)
[2018-03-03 09:17] LABS: Abs Immature Grans 0.07 k/cumm (0.0-0.09); Absolute Monocyte Count 0.09 k/cumm (0.11-0.7); HCT 23.6 % (40.0-50.0); Mean Corp. HGB Concentration 33.9 g/dL (32.0-36.0); Mean Corpuscular Hemoglobin 30.3 pg (27.0-33.0); Mean Corpuscular Volume 89.4 fL (80-95); Mean Platelet Volume 9.7 fL (8.0-11.0); RBC 2.64 m/cumm (4.50-6.00); RBC Distribution Width 14.1 % (11.8-14.1)
[2018-03-03 09:27] LABS: ALT 26 U/L (12-78); AST 15 U/L (15-37); Alkaline Phosphatase 82 U/L (46-116); Anion Gap 11.5 mmol/L (3-11); BUN 50 mg/dL (7-18); Bilirubin, Total 1.2 mg/dL (0.2-1.0); CO2 25.5 mmol/L (21.0-32.0); CREATININE 1.69 mg/dL (0.70-1.30); Calcium 8.4 mg/dL (8.5-10.1); Chloride 107 mmol/L (98-107); Estimated GFR 39.04 (mL/min/1.73m2); Glucose 120 mg/dL (70-100); Potassium 4.1 mmol/L (3.5-5.1); Sodium 144 mmol/L (136-145); Total Protein 5.7 g/dL (6.4-8.2)
[2018-03-03 09:44] LABS: White Blood Cell Count 1.07 k/cumm (4.4-10.8)
[2018-03-03 09:47] LABS: Platelet Count 24 x1000/uL (130-400)
[2018-03-03 09:49] LABS: Absolute Eosinophil Count 0.02 k/cumm (0.0-0.7); Absolute Lymphocyte Count 0.64 k/cumm (1.2-3.4); Absolute Neutrophil Count 0.28 k/cumm (1.2-6.7)
[2018-03-03 09:50] LABS: Ovalocytes 2+; Polychromasia Present
[2018-03-03 09:51] LABS: Diff Comment Manual Differential; Poikilocytes 1+
[2018-03-03 10:51] VITALS: BP 149/57; PULSE 58; RESP 18; TEMP 36.7; O2SAT 94
[2018-03-03 11:06] VITALS: BP 143/54; PULSE 58; RESP 18; TEMP 36.7; O2SAT 95
[2018-03-03 11:21] VITALS: BP 151/49; PULSE 60; RESP 18; TEMP 36.7; O2SAT 95
[2018-03-03 11:51] VITALS: BP 143/54; PULSE 57; RESP 18; TEMP 36.1; O2SAT 94
[2018-03-03] MEDS: Furosemide 40 MG TAB PO (13:21)
[2018-03-06] MEDS: Normal Saline Flush 10 ML SYR IVP (09:09)
[2018-03-06 09:13] LABS: Abs Immature Grans 0.05 k/cumm (0.0-0.09); HCT 25.6 % (40.0-50.0); HGB 8.7 g/dL (13.5-17.5); Mean Corpuscular Hemoglobin 30.2 pg (27.0-33.0); Mean Corpuscular Volume 88.9 fL (80-95); Mean Platelet Volume 8.8 fL (8.0-11.0); RBC 2.88 m/cumm (4.50-6.00); RBC Distribution Width 14.2 % (11.8-14.1)
[2018-03-06 09:25] LABS: ALT 24 U/L (12-78); AST 13 U/L (15-37); Albumin 3.1 g/dL (3.4-5.0); Alkaline Phosphatase 83 U/L (46-116); Anion Gap 12.9 mmol/L (3-11); BUN 53 mg/dL (7-18); Bilirubin, Total 1.3 mg/dL (0.2-1.0); CO2 25.1 mmol/L (21.0-32.0); Calcium 8.8 mg/dL (8.5-10.1); Chloride 107 mmol/L (98-107); Estimated GFR 34.11 (mL/min/1.73m2); Glucose 117 mg/dL (70-100); Potassium 3.9 mmol/L (3.5-5.1); Sodium 145 mmol/L (136-145); Total Protein 5.8 g/dL (6.4-8.2)
[2018-03-06 09:40] LABS: White Blood Cell Count 1.43 k/cumm (4.4-10.8)
[2018-03-06 09:44] LABS: Absolute Lymphocyte Count 0.94 k/cumm (1.2-3.4); Absolute Monocyte Count 0.07 k/cumm (0.11-0.7); Atypical Lymphocytes % 8
[2018-03-06 09:45] LABS: Absolute Neutrophil Count 0.41 k/cumm (1.2-6.7); Diff Comment Manual Differential; Poikilocytes 1+
[2018-03-06 09:46] LABS: Platelet Count 19 x1000/uL (130-400)
[2018-03-06 12:33] LABS: TSH 5.52 uIU/mL (0.358-3.74)
[2018-03-07 09:58] VITALS: BP 139/52; PULSE 72; RESP 20; TEMP 36.5; O2SAT 93
[2018-03-07] MEDS: Normal Saline Flush 10 ML SYR IVP (10:00)
[2018-03-07 10:04] VITALS: BP 149/60; PULSE 68; RESP 16; TEMP 36.6; O2SAT 97
[2018-03-07 10:24] VITALS: BP 133/46; PULSE 61; RESP 18; TEMP 36.5; O2SAT 98
[2018-03-10] VITALS (9 sets, daily range): BP systolic 130–157; BP diastolic 34–64; PULSE 53–78; RESP 18; TEMP 36.4–36.6; O2SAT 93–98
[2018-03-10] MEDS: Normal Saline Flush 10 ML SYR IVP ×2 (09:05→14:59)
[2018-03-10 09:19] LABS: Abs Immature Grans 0.04 k/cumm (0.0-0.09); HCT 23.3 % (40.0-50.0); HGB 7.8 g/dL (13.5-17.5); Mean Corp. HGB Concentration 33.5 g/dL (32.0-36.0); Mean Corpuscular Hemoglobin 29.7 pg (27.0-33.0); Mean Corpuscular Volume 88.6 fL (80-95); Mean Platelet Volume 9.2 fL (8.0-11.0); RBC 2.63 m/cumm (4.50-6.00); RBC Distribution Width 13.8 % (11.8-14.1)
[2018-03-10 09:43] LABS: Platelet Count 25 x1000/uL (130-400)
[2018-03-10 09:44] LABS: Absolute Lymphocyte Count 0.69 k/cumm (1.2-3.4); Absolute Neutrophil Count 0.38 k/cumm (1.2-6.7); Atypical Lymphocytes % 1; White Blood Cell Count 1.31 k/cumm (4.4-10.8)
[2018-03-10 09:45] LABS: Diff Comment Manual Differential; Polychromasia Present
[2018-03-10 09:58] LABS: ALT 24 U/L (12-78); AST 14 U/L (15-37); Alkaline Phosphatase 79 U/L (46-116); Anion Gap 10.3 mmol/L (3-11); BUN 56 mg/dL (7-18); Bilirubin, Total 0.9 mg/dL (0.2-1.0); CO2 25.7 mmol/L (21.0-32.0); CREATININE 1.97 mg/dL (0.70-1.30); Calcium 8.5 mg/dL (8.5-10.1); Chloride 106 mmol/L (98-107); Estimated GFR 32.71 (mL/min/1.73m2); Glucose 119 mg/dL (70-100); Potassium 3.8 mmol/L (3.5-5.1); Sodium 142 mmol/L (136-145); Total Protein 5.7 g/dL (6.4-8.2)
[2018-03-10] MEDS: Furosemide 40 MG TAB PO (14:17)
[2018-03-10] MEDS: Heparin 500 UNITS/5 ML SYRINGE IV (14:59)
[2018-03-13] MEDS: Normal Saline Flush 10 ML SYR IVP (09:10)
[2018-03-13 09:22] LABS: HCT 27.4 % (40.0-50.0); HGB 9.3 g/dL (13.5-17.5); Mean Corp. HGB Concentration 33.9 g/dL (32.0-36.0); Mean Corpuscular Hemoglobin 30.1 pg (27.0-33.0); Mean Corpuscular Volume 88.7 fL (80-95); Mean Platelet Volume 9.7 fL (8.0-11.0); RBC 3.09 m/cumm (4.50-6.00); RBC Distribution Width 14.1 % (11.8-14.1)
[2018-03-13 09:30] LABS: White Blood Cell Count 1.54 k/cumm (4.4-10.8)
[2018-03-13 09:31] LABS: Platelet Count 24 x1000/uL (130-400)
[2018-03-13 09:41] LABS: ALT 25 U/L (12-78); AST 17 U/L (15-37); Alkaline Phosphatase 78 U/L (46-116); Anion Gap 10.2 mmol/L (3-11); BUN 57 mg/dL (7-18); Bilirubin, Total 1.2 mg/dL (0.2-1.0); CO2 26.8 mmol/L (21.0-32.0); Calcium 8.5 mg/dL (8.5-10.1); Chloride 105 mmol/L (98-107); Glucose 137 mg/dL (70-100); Potassium 3.9 mmol/L (3.5-5.1); Sodium 142 mmol/L (136-145); Total Protein 5.7 g/dL (6.4-8.2)
[2018-03-13 09:53] LABS: Absolute Neutrophil Count 0.46 k/cumm (1.2-6.7)
[2018-03-13 09:54] LABS: Absolute Lymphocyte Count 0.85 k/cumm (1.2-3.4); Atypical Lymphocytes % 2; Diff Comment Manual Differential; Polychromasia Present
[2018-03-13] MEDS: Heparin 500 UNITS/5 ML SYRINGE IV (10:11)
[2018-03-17] MEDS: Normal Saline Flush 10 ML SYR IVP (09:00)
[2018-03-17 09:15] LABS: HCT 26.1 % (40.0-50.0); HGB 8.7 g/dL (13.5-17.5); Mean Corp. HGB Concentration 33.3 g/dL (32.0-36.0); Mean Corpuscular Hemoglobin 29.8 pg (27.0-33.0); Mean Corpuscular Volume 89.4 fL (80-95); Mean Platelet Volume 8.8 fL (8.0-11.0); RBC 2.92 m/cumm (4.50-6.00); RBC Distribution Width 14.2 % (11.8-14.1)
[2018-03-17 09:40] LABS: ALT 29 U/L (12-78); AST 17 U/L (15-37); Alkaline Phosphatase 72 U/L (46-116); Anion Gap 9.5 mmol/L (3-11); BUN 58 mg/dL (7-18); Bilirubin, Total 1.4 mg/dL (0.2-1.0); CO2 27.5 mmol/L (21.0-32.0); CREATININE 2.03 mg/dL (0.70-1.30); Calcium 8.3 mg/dL (8.5-10.1); Chloride 105 mmol/L (98-107); Glucose 121 mg/dL (70-100); Potassium 4.1 mmol/L (3.5-5.1); Sodium 142 mmol/L (136-145); Total Protein 5.6 g/dL (6.4-8.2)
[2018-03-17 09:43] LABS: White Blood Cell Count 1.78 k/cumm (4.4-10.8)
[2018-03-17 09:44] LABS: Absolute Lymphocyte Count 1.12 k/cumm (1.2-3.4); Absolute Neutrophil Count 0.37 k/cumm (1.2-6.7); Atypical Lymphocytes % 2; Platelet Count 31 x1000/uL (130-400)
[2018-03-17 09:45] LABS: Absolute Monocyte Count 0.25 k/cumm (0.11-0.7); Diff Comment Manual Differential; Other Cells 2
[2018-03-17 09:46] LABS: Anisocytosis 1+; Microcytosis 1+; Poikilocytes 1+; Polychromasia Present
[2018-03-17 14:02] VITALS: BP 146/64; PULSE 68; RESP 18; TEMP 36.6; O2SAT 96
== END 2018-03-17 23:59 | disposition home or self-care (01) ==
LOC: INF 01:19
PROVIDERS: PCP Family Medicine; Visit Provider Internal Medicine Hematology & Oncology
DX: D46.9 Myelodysplastic syndrome, unspecified (principal); R60.9 Edema, unspecified
CPT/HCPCS: 36430; 36591; 80053; 86850; 86900; 86901; 86920; 70450; 84443; 85025; P9016; P9035

== ENCOUNTER 2018-04-17 10:30 | Outpatient (RCR) | payer MEDICARE, SELFPAY ==
[2018-03-20 09:26] LABS: Abs Immature Grans 0.18 k/cumm (0.0-0.09); HCT 24.2 % (40.0-50.0); HGB 8.2 g/dL (13.5-17.5); Mean Corp. HGB Concentration 33.9 g/dL (32.0-36.0); Mean Corpuscular Volume 88.6 fL (80-95); Mean Platelet Volume 9.6 fL (8.0-11.0); RBC 2.73 m/cumm (4.50-6.00); RBC Distribution Width 14.2 % (11.8-14.1)
[2018-03-20 09:37] LABS: ALT 29 U/L (12-78); AST 18 U/L (15-37); Alkaline Phosphatase 79 U/L (46-116); Anion Gap 9.4 mmol/L (3-11); BUN 58 mg/dL (7-18); CO2 25.6 mmol/L (21.0-32.0); CREATININE 2.12 mg/dL (0.70-1.30); Calcium 8.3 mg/dL (8.5-10.1); Chloride 106 mmol/L (98-107); Estimated GFR 30.06 (mL/min/1.73m2); Glucose 120 mg/dL (70-100); Potassium 4.2 mmol/L (3.5-5.1); Sodium 141 mmol/L (136-145); Total Protein 5.8 g/dL (6.4-8.2)
[2018-03-20 09:59] LABS: Platelet Count 28 x1000/uL (130-400)
[2018-03-20 10:00] LABS: Absolute Lymphocyte Count 0.83 k/cumm (1.2-3.4); Absolute Monocyte Count 0.05 k/cumm (0.11-0.7)
[2018-03-20 10:02] LABS: Anisocytosis 1+; Diff Comment Manual Differential; Macrocytosis 1+; Microcytosis 1+
[2018-03-20 10:03] LABS: Poikilocytes 1+
[2018-03-20 11:20] VITALS: BP 130/45; PULSE 63; RESP 18; TEMP 36.6; O2SAT 94
[2018-03-20 11:32] VITALS: BP 118/39; PULSE 60; RESP 18; TEMP 36.9; O2SAT 94
[2018-03-20 11:47] VITALS: BP 163/44; PULSE 66; TEMP 36.4; O2SAT 96
[2018-03-20 12:17] VITALS: BP 143/46; PULSE 50; RESP 18; TEMP 36.6; O2SAT 97
[2018-03-20] MEDS: Normal Saline Flush 10 ML SYR IVP (13:37)
[2018-03-20] MEDS: Furosemide 40 MG TAB (13:37)
[2018-03-20] MEDS: Heparin 500 UNITS/5 ML SYRINGE IV (13:37)
[2018-03-24] MEDS: Normal Saline Flush 10 ML SYR IVP (09:12)
[2018-03-24 09:21] LABS: Abs Immature Grans 0.13 k/cumm (0.0-0.09); HCT 25.6 % (40.0-50.0); HGB 8.7 g/dL (13.5-17.5); Mean Corpuscular Hemoglobin 30.4 pg (27.0-33.0); Mean Corpuscular Volume 89.5 fL (80-95); Mean Platelet Volume 9.5 fL (8.0-11.0); RBC 2.86 m/cumm (4.50-6.00); RBC Distribution Width 14.2 % (11.8-14.1)
[2018-03-24 09:35] LABS: ALT 23 U/L (12-78); AST 14 U/L (15-37); Albumin 3.1 g/dL (3.4-5.0); Alkaline Phosphatase 76 U/L (46-116); Anion Gap 10.8 mmol/L (3-11); BUN 49 mg/dL (7-18); CO2 26.2 mmol/L (21.0-32.0); CREATININE 1.85 mg/dL (0.70-1.30); Calcium 8.2 mg/dL (8.5-10.1); Chloride 106 mmol/L (98-107); Estimated GFR 35.17 (mL/min/1.73m2); Glucose 122 mg/dL (70-100); Sodium 143 mmol/L (136-145); Total Protein 5.9 g/dL (6.4-8.2)
[2018-03-24 09:53] LABS: Platelet Count 30 x1000/uL (130-400)
[2018-03-24 09:54] LABS: Absolute Eosinophil Count 0.02 k/cumm (0.0-0.7); Absolute Monocyte Count 0.29 k/cumm (0.11-0.7); Atypical Lymphocytes % 2; Diff Comment Manual Differential
[2018-03-24 09:55] LABS: Anisocytosis 1+; Poikilocytes 1+
[2018-03-27] VITALS (7 sets, daily range): BP systolic 115–166; BP diastolic 46–66; PULSE 60–75; RESP 18–185; TEMP 36.3–36.7; O2SAT 92–97
[2018-03-27] MEDS: Normal Saline Flush 10 ML SYR IVP ×2 (09:05→12:15)
[2018-03-27 09:28] LABS: Abs Immature Grans 0.11 k/cumm (0.0-0.09); HCT 23.7 % (40.0-50.0); Mean Corp. HGB Concentration 33.8 g/dL (32.0-36.0); Mean Corpuscular Hemoglobin 30.1 pg (27.0-33.0); Mean Corpuscular Volume 89.1 fL (80-95); Mean Platelet Volume 9.1 fL (8.0-11.0); RBC 2.66 m/cumm (4.50-6.00); RBC Distribution Width 14.2 % (11.8-14.1); White Blood Cell Count 2.15 k/cumm (4.4-10.8)
[2018-03-27 09:37] LABS: ALT 24 U/L (12-78); AST 14 U/L (15-37); Alkaline Phosphatase 74 U/L (46-116); BUN 54 mg/dL (7-18); Bilirubin, Total 1.3 mg/dL (0.2-1.0); CREATININE 2.08 mg/dL (0.70-1.30); Calcium 8.4 mg/dL (8.5-10.1); Chloride 105 mmol/L (98-107); Estimated GFR 30.72 (mL/min/1.73m2); Glucose 122 mg/dL (70-100); Potassium 4.2 mmol/L (3.5-5.1); Sodium 142 mmol/L (136-145); Total Protein 5.8 g/dL (6.4-8.2)
[2018-03-27 09:51] LABS: Absolute Lymphocyte Count 0.97 k/cumm (1.2-3.4); Absolute Monocyte Count 0.22 k/cumm (0.11-0.7); Diff Comment Manual Differential; Platelet Count 31 x1000/uL (130-400)
[2018-03-27 09:52] LABS: Microcytosis 1+
[2018-03-27 09:53] LABS: Poikilocytes 1+
[2018-03-27] MEDS: Heparin 500 UNITS/5 ML SYRINGE IV (14:25)
[2018-03-27] MEDS: Furosemide 40 MG TAB PO (14:30)
[2018-03-31] MEDS: Normal Saline Flush 10 ML SYR IVP (08:50)
[2018-03-31 09:30] LABS: Abs Immature Grans 0.05 k/cumm (0.0-0.09); HGB 8.1 g/dL (13.5-17.5); Mean Corp. HGB Concentration 33.8 g/dL (32.0-36.0); Mean Corpuscular Hemoglobin 29.8 pg (27.0-33.0); Mean Corpuscular Volume 88.2 fL (80-95); Mean Platelet Volume 9.9 fL (8.0-11.0); RBC 2.72 m/cumm (4.50-6.00); RBC Distribution Width 14.2 % (11.8-14.1)
[2018-03-31 09:33] LABS: ALT 27 U/L (12-78); AST 17 U/L (15-37); Albumin 3.1 g/dL (3.4-5.0); Alkaline Phosphatase 77 U/L (46-116); Anion Gap 10.1 mmol/L (3-11); BUN 50 mg/dL (7-18); Bilirubin, Total 1.4 mg/dL (0.2-1.0); CO2 24.9 mmol/L (21.0-32.0); Calcium 8.5 mg/dL (8.5-10.1); Chloride 106 mmol/L (98-107); Glucose 119 mg/dL (70-100); Potassium 4.2 mmol/L (3.5-5.1); Sodium 141 mmol/L (136-145); Total Protein 5.9 g/dL (6.4-8.2)
[2018-03-31 09:59] LABS: Absolute Monocyte Count 0.11 k/cumm (0.11-0.7); Absolute Neutrophil Count 0.84 k/cumm (1.2-6.7); Anisocytosis 1+; Diff Comment Manual Differential; Poikilocytes 1+
[2018-03-31 10:02] LABS: Platelet Count 19 x1000/uL (130-400); White Blood Cell Count 1.87 k/cumm (4.4-10.8)
[2018-03-31 10:48] VITALS: BP 147/60; PULSE 66; RESP 18; TEMP 36.5; O2SAT 97
[2018-03-31 11:30] VITALS: BP 152/58; PULSE 55; RESP 18; TEMP 36.6; O2SAT 98
[2018-03-31 11:45] VITALS: BP 138/55; PULSE 66; RESP 18; TEMP 36.6; O2SAT 96
[2018-03-31 12:15] VITALS: BP 139/47; PULSE 55; RESP 18; TEMP 36.6; O2SAT 98
[2018-03-31] MEDS: Furosemide 40 MG TAB PO (13:26)
[2018-03-31] MEDS: Heparin 500 UNITS/5 ML SYRINGE IV (13:27)
[2018-04-02 09:58] VITALS: BP 163/50; PULSE 64; RESP 18; TEMP 36.7; O2SAT 98
[2018-04-02 10:05] VITALS: BP 163/50; PULSE 68; RESP 18; TEMP 36.7; O2SAT 98
[2018-04-03] MEDS: Normal Saline Flush 10 ML SYR IVP (08:58)
[2018-04-03 09:11] LABS: Abs Immature Grans 0.03 k/cumm (0.0-0.09); Absolute Eosinophil Count 0.01 k/cumm (0.0-0.7); Absolute Lymphocyte Count 0.79 k/cumm (1.2-3.4); Absolute Monocyte Count 0.09 k/cumm (0.11-0.7); Absolute Neutrophil Count 0.53 k/cumm (1.2-6.7); Eosinophils % 0.7; HCT 24.9 % (40.0-50.0); HGB 8.3 g/dL (13.5-17.5); Immature Grans % 2.1; Lymphocytes % 54.5; Mean Corp. HGB Concentration 33.3 g/dL (32.0-36.0); Mean Corpuscular Hemoglobin 29.1 pg (27.0-33.0); Mean Corpuscular Volume 87.4 fL (80-95); Monocytes % 6.2; Neutrophils % 36.5; RBC 2.85 m/cumm (4.50-6.00); RBC Distribution Width 14.1 % (11.8-14.1)
[2018-04-03 09:19] LABS: ALT 29 U/L (12-78); AST 15 U/L (15-37); Alkaline Phosphatase 78 U/L (46-116); Anion Gap 10.6 mmol/L (3-11); BUN 48 mg/dL (7-18); Bilirubin, Total 1.5 mg/dL (0.2-1.0); CO2 26.4 mmol/L (21.0-32.0); CREATININE 1.77 mg/dL (0.70-1.30); Calcium 8.4 mg/dL (8.5-10.1); Chloride 106 mmol/L (98-107); Estimated GFR 37.01 (mL/min/1.73m2); Glucose 122 mg/dL (70-100); Sodium 143 mmol/L (136-145); Total Protein 5.8 g/dL (6.4-8.2)
[2018-04-03 09:35] LABS: White Blood Cell Count 1.45 k/cumm (4.4-10.8)
[2018-04-03 09:37] LABS: Platelet Count 20 x1000/uL (130-400)
[2018-04-04 08:40] VITALS: BP 168/55; PULSE 55; RESP 18; TEMP 36.5; O2SAT 95
[2018-04-04] MEDS: Normal Saline Flush 10 ML SYR IVP (09:06)
[2018-04-04] MEDS: Heparin 500 UNITS/5 ML SYRINGE IV (09:06)
[2018-04-04 09:20] VITALS: BP 147/53; PULSE 63; RESP 18; TEMP 36.6; O2SAT 95
[2018-04-04 09:22] VITALS: BP 129/44; PULSE 60; RESP 18; TEMP 36.6; O2SAT 96
[2018-04-04 09:35] VITALS: BP 145/65; PULSE 65; RESP 18; TEMP 36.5; O2SAT 95
[2018-04-04 10:05] VITALS: BP 148/50; PULSE 63; RESP 18; TEMP 36.7; O2SAT 95
[2018-04-04 11:07] VITALS: BP 154/58; PULSE 62; TEMP 36.5; O2SAT 94
[2018-04-04] MEDS: Furosemide 40 MG TAB (11:12)
[2018-04-07] MEDS: Normal Saline Flush 10 ML SYR IVP (09:01)
[2018-04-07 09:13] LABS: HCT 24.2 % (40.0-50.0); HGB 8.2 g/dL (13.5-17.5); Mean Corp. HGB Concentration 33.9 g/dL (32.0-36.0); Mean Corpuscular Hemoglobin 28.9 pg (27.0-33.0); Mean Corpuscular Volume 85.2 fL (80-95); Mean Platelet Volume 9.9 fL (8.0-11.0); RBC 2.84 m/cumm (4.50-6.00); RBC Distribution Width 15.2 % (11.8-14.1)
[2018-04-07 09:26] LABS: ALT 28 U/L (12-78); AST 16 U/L (15-37); Alkaline Phosphatase 82 U/L (46-116); Anion Gap 10.4 mmol/L (3-11); BUN 49 mg/dL (7-18); Bilirubin, Total 1.4 mg/dL (0.2-1.0); CO2 25.6 mmol/L (21.0-32.0); CREATININE 1.82 mg/dL (0.70-1.30); Calcium 8.4 mg/dL (8.5-10.1); Chloride 105 mmol/L (98-107); Estimated GFR 35.84 (mL/min/1.73m2); Glucose 128 mg/dL (70-100); Potassium 3.9 mmol/L (3.5-5.1); Sodium 141 mmol/L (136-145); Total Protein 5.8 g/dL (6.4-8.2)
[2018-04-07 09:38] LABS: White Blood Cell Count 1.65 k/cumm (4.4-10.8)
[2018-04-07 09:39] LABS: Absolute Neutrophil Count 0.58 k/cumm (1.2-6.7); Platelet Count 17 x1000/uL (130-400)
[2018-04-07 09:40] LABS: Absolute Basophil Count 0.03 k/cumm (0.0-0.2); Absolute Lymphocyte Count 0.87 k/cumm (1.2-3.4); Absolute Monocyte Count 0.13 k/cumm (0.11-0.7); Anisocytosis 1+; Diff Comment Manual Differential
[2018-04-08 08:52] VITALS: BP 181/54; PULSE 66; RESP 18; TEMP 36.6; O2SAT 97
[2018-04-08 09:40] VITALS: BP 148/48; PULSE 55; RESP 18; TEMP 36.6; O2SAT 95
[2018-04-08 10:12] VITALS: BP 148/48; PULSE 55; RESP 18; TEMP 36.6; O2SAT 94
[2018-04-08 10:27] VITALS: BP 119/43; PULSE 63; RESP 18; TEMP 36.6; O2SAT 98
[2018-04-08 10:57] VITALS: BP 127/48; PULSE 55; RESP 18; TEMP 36.6; O2SAT 94
[2018-04-08 12:05] VITALS: BP 158/52; PULSE 58; RESP 18; TEMP 36.4
[2018-04-08] MEDS: Furosemide 40 MG TAB PO (12:13)
[2018-04-08] MEDS: Normal Saline Flush 10 ML SYR IVP (12:13)
[2018-04-10] MEDS: Normal Saline Flush 10 ML SYR IVP (12:05)
[2018-04-10 12:38] LABS: Abs Immature Grans 0.04 k/cumm (0.0-0.09); HGB 8.3 g/dL (13.5-17.5); Mean Corp. HGB Concentration 33.2 g/dL (32.0-36.0); Mean Corpuscular Hemoglobin 28.3 pg (27.0-33.0); Mean Corpuscular Volume 85.3 fL (80-95); Mean Platelet Volume 8.8 fL (8.0-11.0); RBC 2.93 m/cumm (4.50-6.00); RBC Distribution Width 15.4 % (11.8-14.1)
[2018-04-10 12:59] LABS: ALT 33 U/L (12-78); AST 17 U/L (15-37); Albumin 3.2 g/dL (3.4-5.0); Alkaline Phosphatase 84 U/L (46-116); Anion Gap 10.5 mmol/L (3-11); BUN 52 mg/dL (7-18); Bilirubin, Total 1.2 mg/dL (0.2-1.0); CO2 26.5 mmol/L (21.0-32.0); CREATININE 1.71 mg/dL (0.70-1.30); Calcium 8.5 mg/dL (8.5-10.1); Chloride 106 mmol/L (98-107); Estimated GFR 38.52 (mL/min/1.73m2); Glucose 125 mg/dL (70-100); NT-proBNP 1084 pg/mL; Potassium 3.9 mmol/L (3.5-5.1); Sodium 143 mmol/L (136-145)
[2018-04-10 13:16] LABS: White Blood Cell Count 1.97 k/cumm (4.4-10.8)
[2018-04-10 13:17] LABS: Platelet Count 19 x1000/uL (130-400)
[2018-04-10 13:18] LABS: Absolute Lymphocyte Count 0.91 k/cumm (1.2-3.4); Absolute Neutrophil Count 0.81 k/cumm (1.2-6.7)
[2018-04-10 13:19] LABS: Absolute Monocyte Count 0.14 k/cumm (0.11-0.7); Other Cells 1
[2018-04-10 13:21] LABS: Anisocytosis 1+; Diff Comment Manual Differential; Poikilocytes 1+
[2018-04-11 09:15] VITALS: BP 158/62; PULSE 62; RESP 18; TEMP 36.5; O2SAT 96
[2018-04-11 09:42] VITALS: BP 161/57; PULSE 63; TEMP 36.5; O2SAT 96
[2018-04-11 10:23] VITALS: BP 119/40; PULSE 67; RESP 20; TEMP 35.7; O2SAT 95
[2018-04-11 11:52] VITALS: BP 169/64; PULSE 73; RESP 20; TEMP 35.6; O2SAT 94
[2018-04-11 12:04] VITALS: BP 176/66; PULSE 59; RESP 22; TEMP 35.7; O2SAT 95
[2018-04-11] MEDS: Furosemide 40 MG TAB PO (12:05)
[2018-04-11] MEDS: Heparin 500 UNITS/5 ML SYRINGE IV (12:16)
[2018-04-14 09:41] VITALS: BP 176/66; PULSE 59; RESP 22; TEMP 35.7; O2SAT 95
[2018-04-14 09:43] LABS: HCT 26.3 % (40.0-50.0); HGB 8.7 g/dL (13.5-17.5); Mean Corp. HGB Concentration 33.1 g/dL (32.0-36.0); Mean Corpuscular Hemoglobin 28.5 pg (27.0-33.0); Mean Corpuscular Volume 86.2 fL (80-95); RBC 3.05 m/cumm (4.50-6.00); RBC Distribution Width 15.4 % (11.8-14.1); White Blood Cell Count 2.43 k/cumm (4.4-10.8)
[2018-04-14 09:51] LABS: ALT 27 U/L (12-78); AST 17 U/L (15-37); Alkaline Phosphatase 80 U/L (46-116); Anion Gap 11.4 mmol/L (3-11); BUN 44 mg/dL (7-18); Bilirubin, Total 1.5 mg/dL (0.2-1.0); CO2 24.6 mmol/L (21.0-32.0); CREATININE 1.74 mg/dL (0.70-1.30); Calcium 8.4 mg/dL (8.5-10.1); Chloride 106 mmol/L (98-107); Estimated GFR 37.75 (mL/min/1.73m2); Glucose 122 mg/dL (70-100); Potassium 3.8 mmol/L (3.5-5.1); Sodium 142 mmol/L (136-145)
[2018-04-14 10:35] LABS: Platelet Count 27 x1000/uL (130-400)
[2018-04-14 10:36] LABS: Absolute Lymphocyte Count 1.17 k/cumm (1.2-3.4); Absolute Monocyte Count 0.32 k/cumm (0.11-0.7); Promyelocytes % 1 %
[2018-04-14 10:38] LABS: Anisocytosis 1+; Diff Comment Manual Differential; Nucleated RBC 2 /100WBC; Other Cells 8; Polychromasia Present
[2018-04-14 10:39] LABS: Poikilocytes 1+
[2018-04-15 14:26] LABS: TSH 4.59 uIU/mL (0.358-3.74)
[2018-04-17 09:40] LABS: Abs Immature Grans 0.17 k/cumm (0.0-0.09); Absolute Basophil Count 0.01 k/cumm (0.0-0.2); Absolute Lymphocyte Count 1.06 k/cumm (1.2-3.4); Absolute Monocyte Count 0.64 k/cumm (0.11-0.7); Absolute Neutrophil Count 0.66 k/cumm (1.2-6.7); Basophils % 0.4; HCT 24.1 % (40.0-50.0); Immature Grans % 6.7; Lymphocytes % 41.7; Mean Corp. HGB Concentration 33.2 g/dL (32.0-36.0); Mean Corpuscular Hemoglobin 28.5 pg (27.0-33.0); Mean Corpuscular Volume 85.8 fL (80-95); Mean Platelet Volume 11.2 fL (8.0-11.0); Monocytes % 25.2; RBC 2.81 m/cumm (4.50-6.00); RBC Distribution Width 15.7 % (11.8-14.1); White Blood Cell Count 2.54 k/cumm (4.4-10.8)
[2018-04-17 09:47] LABS: ALT 27 U/L (12-78); AST 18 U/L (15-37); Alkaline Phosphatase 79 U/L (46-116); Anion Gap 11.8 mmol/L (3-11); BUN 45 mg/dL (7-18); Bilirubin, Total 1.2 mg/dL (0.2-1.0); CO2 26.2 mmol/L (21.0-32.0); CREATININE 1.79 mg/dL (0.70-1.30); Calcium 8.3 mg/dL (8.5-10.1); Chloride 106 mmol/L (98-107); Estimated GFR 36.54 (mL/min/1.73m2); Glucose 124 mg/dL (70-100); Sodium 144 mmol/L (136-145); Total Protein 5.9 g/dL (6.4-8.2)
[2018-04-17 10:02] LABS: Platelet Count 30 x1000/uL (130-400)
[2018-04-17 10:03] LABS: Diff Comment Agrees w/ Instrument
[2018-04-17] MEDS: Normal Saline Flush 10 ML SYR IVP (10:14)
[2018-04-17 11:12] VITALS: BP 137/54; PULSE 55; RESP 18; TEMP 36.6; O2SAT 98
[2018-04-17 11:38] VITALS: BP 137/49; BP 140/53; PULSE 57; PULSE 63; RESP 18; TEMP 36.5; TEMP 36.6; O2SAT 94; O2SAT 98
[2018-04-17 11:45] VITALS: BP 139/50; PULSE 59; RESP 22; TEMP 36.4; O2SAT 97
[2018-04-17 12:08] VITALS: BP 135/65; PULSE 60; RESP 18; TEMP 36.6; O2SAT 98
[2018-04-17] MEDS: Furosemide 40 MG TAB PO (12:58)
== END 2018-04-17 23:59 | disposition home or self-care (01) ==
LOC: INF 10:30
PROVIDERS: PCP Family Medicine; Visit Provider Internal Medicine Hematology & Oncology
DX: D46.20 Refractory anemia with excess of blasts, unspecified (principal); Z45.2 Encounter for adjustment and management of vascular access device; R60.0 Localized edema; R05 Cough
CPT/HCPCS: 36430; 36591; 80053; 86850; 86900; 86901; 86920; 86945; 96523; 83880; 84443; 85025; P9016; P9035

== ENCOUNTER 2018-05-15 01:04 | Outpatient (RCR) | payer MEDICARE, SELFPAY ==
[2018-04-21 09:28] LABS: Mean Corp. HGB Concentration 33.3 g/dL (32.0-36.0); Mean Corpuscular Hemoglobin 29.1 pg (27.0-33.0); Mean Corpuscular Volume 87.3 fL (80-95); Mean Platelet Volume 7.9 fL (8.0-11.0); RBC 2.75 m/cumm (4.50-6.00)
[2018-04-21 09:49] LABS: ALT 27 U/L (12-78); AST 18 U/L (15-37); Albumin 2.9 g/dL (3.4-5.0); Alkaline Phosphatase 75 U/L (46-116); Anion Gap 7.9 mmol/L (3-11); BUN 40 mg/dL (7-18); Bilirubin, Total 1.1 mg/dL (0.2-1.0); CO2 28.1 mmol/L (21.0-32.0); Calcium 8.2 mg/dL (8.5-10.1); Chloride 107 mmol/L (98-107); Estimated GFR 38.78 (mL/min/1.73m2); Glucose 117 mg/dL (70-100); Sodium 143 mmol/L (136-145); Total Protein 5.8 g/dL (6.4-8.2)
[2018-04-21 09:52] LABS: Platelet Count 35 x1000/uL (130-400)
[2018-04-21 09:53] LABS: Absolute Basophil Count 0.07 k/cumm (0.0-0.2); Absolute Lymphocyte Count 0.97 k/cumm (1.2-3.4); Absolute Monocyte Count 0.18 k/cumm (0.11-0.7)
[2018-04-21 09:54] LABS: Promyelocytes % 1 %
[2018-04-21 09:57] LABS: Anisocytosis 1+; Diff Comment Manual Differential; Nucleated RBC 2 /100WBC; Polychromasia Present
[2018-04-21 09:58] LABS: Poikilocytes 1+
[2018-04-21 10:01] LABS: Other Cells 8
[2018-04-21 11:49] VITALS: BP 151/60; PULSE 63; RESP 18; TEMP 36.7; O2SAT 94
[2018-04-21 12:04] VITALS: BP 154/45; PULSE 55; RESP 18; TEMP 36.6; O2SAT 95
[2018-04-21] MEDS: Normal Saline Flush 10 ML SYR IVP (13:17)
[2018-04-21] MEDS: Furosemide 40 MG TAB PO (13:38)
[2018-04-21 13:47] VITALS: BP 139/47; PULSE 62; RESP 20; TEMP 36.6; O2SAT 97
[2018-04-24 09:35] LABS: Abs Immature Grans 0.19 k/cumm (0.0-0.09); Absolute Monocyte Count 0.59 k/cumm (0.11-0.7); HCT 25.8 % (40.0-50.0); HGB 8.3 g/dL (13.5-17.5); Mean Corp. HGB Concentration 32.2 g/dL (32.0-36.0); Mean Corpuscular Hemoglobin 28.1 pg (27.0-33.0); Mean Corpuscular Volume 87.5 fL (80-95); RBC 2.95 m/cumm (4.50-6.00); RBC Distribution Width 15.9 % (11.8-14.1); White Blood Cell Count 2.66 k/cumm (4.4-10.8)
[2018-04-24 09:37] LABS: ALT 26 U/L (12-78); AST 16 U/L (15-37); Albumin 2.9 g/dL (3.4-5.0); Alkaline Phosphatase 76 U/L (46-116); Anion Gap 6.8 mmol/L (3-11); BUN 45 mg/dL (7-18); Bilirubin, Total 1.1 mg/dL (0.2-1.0); CO2 29.2 mmol/L (21.0-32.0); CREATININE 1.66 mg/dL (0.70-1.30); Calcium 8.6 mg/dL (8.5-10.1); Chloride 106 mmol/L (98-107); Estimated GFR 39.86 (mL/min/1.73m2); Glucose 129 mg/dL (70-100); Sodium 142 mmol/L (136-145); Total Protein 5.8 g/dL (6.4-8.2)
[2018-04-24 09:50] LABS: Absolute Lymphocyte Count 1.09 k/cumm (1.2-3.4); Absolute Neutrophil Count 0.64 k/cumm (1.2-6.7); Platelet Count 31 x1000/uL (130-400)
[2018-04-24 09:51] LABS: Other Cells 4
[2018-04-24 11:24] VITALS: BP 150/58; PULSE 58; RESP 18; TEMP 36.6; O2SAT 96
[2018-04-24 11:39] VITALS: BP 130/52; PULSE 52; RESP 18; TEMP 36.6; O2SAT 94
[2018-04-24 12:09] VITALS: BP 123/47; PULSE 54; RESP 18; TEMP 36.8; O2SAT 96
[2018-04-24 13:09] VITALS: BP 122/53; PULSE 65; RESP 18; TEMP 36.8; O2SAT 94
[2018-04-24 13:52] VITALS: BP 124/50; PULSE 71; RESP 18; TEMP 36.5; O2SAT 95
[2018-04-24] MEDS: Furosemide 40 MG TAB PO (13:53)
[2018-04-24] MEDS: Heparin 500 UNITS/5 ML SYRINGE IV (13:54)
[2018-04-28] MEDS: Normal Saline Flush 10 ML SYR IVP (09:10)
[2018-04-28 09:30] LABS: Abs Immature Grans 0.31 k/cumm (0.0-0.09); Absolute Eosinophil Count 0.03 k/cumm (0.0-0.7); HCT 27.1 % (40.0-50.0); HGB 8.8 g/dL (13.5-17.5); Mean Corp. HGB Concentration 32.5 g/dL (32.0-36.0); Mean Corpuscular Hemoglobin 28.7 pg (27.0-33.0); Mean Corpuscular Volume 88.3 fL (80-95); RBC 3.07 m/cumm (4.50-6.00); White Blood Cell Count 3.34 k/cumm (4.4-10.8)
[2018-04-28 09:41] LABS: ALT 32 U/L (12-78); AST 21 U/L (15-37); Alkaline Phosphatase 81 U/L (46-116); Anion Gap 10.3 mmol/L (3-11); BUN 46 mg/dL (7-18); Bilirubin, Total 1.1 mg/dL (0.2-1.0); CO2 26.7 mmol/L (21.0-32.0); CREATININE 1.68 mg/dL (0.70-1.30); Calcium 8.6 mg/dL (8.5-10.1); Chloride 106 mmol/L (98-107); Estimated GFR 39.31 (mL/min/1.73m2); Glucose 138 mg/dL (70-100); Sodium 143 mmol/L (136-145); Total Protein 5.9 g/dL (6.4-8.2)
[2018-04-28 09:56] LABS: Platelet Count 38 x1000/uL (130-400)
[2018-04-28 10:02] LABS: Absolute Lymphocyte Count 1.34 k/cumm (1.2-3.4); Absolute Monocyte Count 0.57 k/cumm (0.11-0.7); Absolute Neutrophil Count 1.04 k/cumm (1.2-6.7); Atypical Lymphocytes % 4
[2018-04-28 10:03] LABS: Anisocytosis 1+; Diff Comment Manual Differential; Other Cells 5; Polychromasia Present
[2018-05-01] VITALS (10 sets, daily range): BP systolic 124–163; BP diastolic 36–58; PULSE 55–71; RESP 18–22; TEMP 36.2–36.7; O2SAT 92–97
[2018-05-01] MEDS: Normal Saline Flush 10 ML SYR IVP ×2 (10:04→16:31)
[2018-05-01 10:30] LABS: Abs Immature Grans 0.26 k/cumm (0.0-0.09); HCT 23.6 % (40.0-50.0); HGB 7.6 g/dL (13.5-17.5); Mean Corp. HGB Concentration 32.2 g/dL (32.0-36.0); Mean Corpuscular Hemoglobin 28.6 pg (27.0-33.0); Mean Corpuscular Volume 88.7 fL (80-95); Mean Platelet Volume 10.1 fL (8.0-11.0); RBC 2.66 m/cumm (4.50-6.00); White Blood Cell Count 2.98 k/cumm (4.4-10.8)
[2018-05-01 10:46] LABS: ALT 28 U/L (12-78); AST 18 U/L (15-37); Albumin 2.9 g/dL (3.4-5.0); Alkaline Phosphatase 76 U/L (46-116); Anion Gap 10.3 mmol/L (3-11); BUN 46 mg/dL (7-18); Bilirubin, Total 1.1 mg/dL (0.2-1.0); CO2 26.7 mmol/L (21.0-32.0); CREATININE 1.84 mg/dL (0.70-1.30); Calcium 7.8 mg/dL (8.5-10.1); Chloride 106 mmol/L (98-107); Estimated GFR 35.39 (mL/min/1.73m2); Glucose 113 mg/dL (70-100); Potassium 4.2 mmol/L (3.5-5.1); Sodium 143 mmol/L (136-145); Total Protein 5.7 g/dL (6.4-8.2)
[2018-05-01 11:03] LABS: Platelet Count 34 x1000/uL (130-400)
[2018-05-01 11:04] LABS: Absolute Lymphocyte Count 1.25 k/cumm (1.2-3.4); Absolute Monocyte Count 0.42 k/cumm (0.11-0.7); Absolute Neutrophil Count 1.04 k/cumm (1.2-6.7); Atypical Lymphocytes % 2
[2018-05-01 11:07] LABS: Anisocytosis 1+; Diff Comment Manual Differential; Microcytosis 2+; Other Cells 2
[2018-05-01] MEDS: Furosemide 40 MG TAB PO (15:15)
[2018-05-05] MEDS: Normal Saline Flush 10 ML SYR IVP (08:56)
[2018-05-05 09:10] LABS: Abs Immature Grans 0.11 k/cumm (0.0-0.09); HCT 26.8 % (40.0-50.0); HGB 8.7 g/dL (13.5-17.5); Mean Corp. HGB Concentration 32.5 g/dL (32.0-36.0); Mean Corpuscular Hemoglobin 28.9 pg (27.0-33.0); Mean Platelet Volume 8.3 fL (8.0-11.0); RBC 3.01 m/cumm (4.50-6.00); RBC Distribution Width 15.7 % (11.8-14.1); White Blood Cell Count 2.01 k/cumm (4.4-10.8)
[2018-05-05 09:34] LABS: ALT 30 U/L (12-78); AST 18 U/L (15-37); Absolute Lymphocyte Count 0.96 k/cumm (1.2-3.4); Absolute Monocyte Count 0.14 k/cumm (0.11-0.7); Absolute Neutrophil Count 0.88 k/cumm (1.2-6.7); Albumin 2.7 g/dL (3.4-5.0); Alkaline Phosphatase 85 U/L (46-116); Anion Gap 9.4 mmol/L (3-11); Atypical Lymphocytes % 3; BUN 44 mg/dL (7-18); Bilirubin, Total 1.1 mg/dL (0.2-1.0); CO2 28.6 mmol/L (21.0-32.0); CREATININE 1.58 mg/dL (0.70-1.30); Calcium 7.8 mg/dL (8.5-10.1); Chloride 106 mmol/L (98-107); Glucose 115 mg/dL (70-100); Platelet Count 25 x1000/uL (130-400); Potassium 4.1 mmol/L (3.5-5.1); Sodium 144 mmol/L (136-145); Total Protein 5.8 g/dL (6.4-8.2)
[2018-05-05 09:35] LABS: Anisocytosis 1+; Diff Comment Manual Differential
[2018-05-05] MEDS: Heparin 500 UNITS/5 ML SYRINGE IV (10:15)
[2018-05-08 09:27] LABS: HCT 23.8 % (40.0-50.0); Mean Corp. HGB Concentration 33.6 g/dL (32.0-36.0); Mean Corpuscular Hemoglobin 29.5 pg (27.0-33.0); Mean Corpuscular Volume 87.8 fL (80-95); Mean Platelet Volume 10.3 fL (8.0-11.0); RBC 2.71 m/cumm (4.50-6.00); RBC Distribution Width 15.5 % (11.8-14.1)
[2018-05-08 09:46] LABS: ALT 34 U/L (12-78); AST 19 U/L (15-37); Albumin 2.9 g/dL (3.4-5.0); Alkaline Phosphatase 83 U/L (46-116); Anion Gap 8.6 mmol/L (3-11); BUN 47 mg/dL (7-18); Bilirubin, Total 1.1 mg/dL (0.2-1.0); CO2 26.4 mmol/L (21.0-32.0); CREATININE 1.63 mg/dL (0.70-1.30); Calcium 8.3 mg/dL (8.5-10.1); Chloride 107 mmol/L (98-107); Estimated GFR 40.71 (mL/min/1.73m2); Glucose 124 mg/dL (70-100); Sodium 142 mmol/L (136-145); Total Protein 5.7 g/dL (6.4-8.2)
[2018-05-08 10:07] LABS: White Blood Cell Count 1.77 k/cumm (4.4-10.8)
[2018-05-08 10:08] LABS: Platelet Count 18 x1000/uL (130-400)
[2018-05-08 10:09] LABS: Absolute Basophil Count 0.04 k/cumm (0.0-0.2); Absolute Eosinophil Count 0.02 k/cumm (0.0-0.7); Absolute Lymphocyte Count 0.97 k/cumm (1.2-3.4); Absolute Monocyte Count 0.02 k/cumm (0.11-0.7); Absolute Neutrophil Count 0.65 k/cumm (1.2-6.7)
[2018-05-08 10:10] LABS: Other Cells 2
[2018-05-08 10:11] LABS: Anisocytosis 1+; Diff Comment Manual Differential
[2018-05-08] MEDS: Normal Saline Flush 10 ML SYR IVP (10:47)
[2018-05-09] VITALS (9 sets, daily range): BP systolic 136–154; BP diastolic 36–57; PULSE 55–67; RESP 17–20; TEMP 36.4–36.7; O2SAT 94–98
[2018-05-09] MEDS: Normal Saline Flush 10 ML SYR IVP (09:30)
[2018-05-09] MEDS: Furosemide 40 MG TAB PO (12:36)
[2018-05-12 09:27] LABS: Abs Immature Grans 0.09 k/cumm (0.0-0.09); Absolute Neutrophil Count 0.76 k/cumm (1.2-6.7); HCT 23.9 % (40.0-50.0); HGB 8.1 g/dL (13.5-17.5); Mean Corp. HGB Concentration 33.9 g/dL (32.0-36.0); Mean Corpuscular Hemoglobin 29.8 pg (27.0-33.0); Mean Corpuscular Volume 87.9 fL (80-95); Mean Platelet Volume 10.7 fL (8.0-11.0); RBC 2.72 m/cumm (4.50-6.00)
[2018-05-12 09:51] LABS: ALT 33 U/L (12-78); AST 20 U/L (15-37); Albumin 2.8 g/dL (3.4-5.0); Alkaline Phosphatase 85 U/L (46-116); Anion Gap 7.4 mmol/L (3-11); BUN 39 mg/dL (7-18); Bilirubin, Total 1.1 mg/dL (0.2-1.0); CO2 26.6 mmol/L (21.0-32.0); CREATININE 1.71 mg/dL (0.70-1.30); Chloride 107 mmol/L (98-107); Estimated GFR 38.52 (mL/min/1.73m2); Glucose 125 mg/dL (70-100); Potassium 3.8 mmol/L (3.5-5.1); Sodium 141 mmol/L (136-145); Total Protein 5.7 g/dL (6.4-8.2)
[2018-05-12 10:01] LABS: Platelet Count 23 x1000/uL (130-400)
[2018-05-12 10:02] LABS: Absolute Lymphocyte Count 0.92 k/cumm (1.2-3.4); Atypical Lymphocytes % 2
[2018-05-12 10:03] LABS: Absolute Monocyte Count 0.15 k/cumm (0.11-0.7)
[2018-05-12 10:04] LABS: Diff Comment Manual Differential; Other Cells 10
[2018-05-12 10:05] LABS: Anisocytosis 1+; Polychromasia Present
[2018-05-12] MEDS: Normal Saline Flush 10 ML SYR IVP (10:37)
[2018-05-12 10:43] VITALS: BP 135/47; PULSE 56; RESP 18; TEMP 36.6; O2SAT 93
[2018-05-12 11:03] VITALS: BP 141/37; PULSE 57; RESP 20; TEMP 36.7; O2SAT 95
[2018-05-12 11:18] VITALS: BP 144/44; PULSE 54; TEMP 36.6; O2SAT 96
[2018-05-12 11:48] VITALS: BP 122/39; PULSE 60; RESP 20; TEMP 36.6; O2SAT 95
[2018-05-12] MEDS: Furosemide 40 MG TAB PO (13:31)
[2018-05-12 13:46] VITALS: BP 133/48; PULSE 67; RESP 20; TEMP 36.6; O2SAT 95
[2018-05-15 08:46] VITALS: PULSE 63; RESP 18; TEMP 36.4; O2SAT 98
[2018-05-15] MEDS: Normal Saline Flush 10 ML SYR IVP (09:03)
== END 2018-05-15 23:59 | disposition home or self-care (01) ==
LOC: INF 01:04
PROVIDERS: PCP Family Medicine; Visit Provider Internal Medicine Hematology & Oncology
DX: D46.20 Refractory anemia with excess of blasts, unspecified (principal)
CPT/HCPCS: 36430; 36591; 80053; 86850; 86900; 86901; 86920; 85025; P9016; P9035

== ENCOUNTER 2018-06-09 16:50 | Emergency (ER) | payer MEDICARE, SELFPAY ==
[2018-06-09 16:54] VITALS: BP 174/65; PULSE 88; RESP 18; TEMP 36.7; O2SAT 96
--- NOTE | 2018-06-09 17:04 | DI.CT_ITS ---
SYMPTOM/DIAGNOSIS: LT LOW ABD PAIN ABDOMEN AND PELVIC CT: CT examination of the abdomen and pelvis was performed with a bolus infusion of 100 cc's of Omnipaque 350. There is significant motion artifact on this examination. There appears to be mild cardiomegaly. No pericardial effusion or pleural effusion is seen. Slight prominence of pulmonary markings in the lower lobes noted, lung bases are difficult to assess due to motion. No gross hepatic lesion identified. Gallbladder has been surgically removed. No biliary dilatation. Pancreas is poorly visualized due to motion. Spleen is enlarged at about 20 cm., splenomegaly has been noted on previous examinations. Adrenals appear normal bilaterally. There are innumerable bilateral renal cysts raising the possibility of polycystic kidney disease. Question multiple left medullary cysts versus hydronephrosis, additional evaluation with CT urogram suggested to evaluate hydronephrosis. Question enhancement of the urothelium at the UPJ, infectious process not excluded. Abdominal aorta is of normal diameter. No major vascular abnormality is seen. Multiple fat containing ventral hernias are noted, no evidence of bowel involvement. No bowel obstruction is seen. No adenopathy in the abdomen or pelvis. There is marked colonic diverticulosis with focal pericolonic fat thickening in the distal descending/proximal sigmoid colon suggesting acute diverticulitis. CONCLUSION: 1. Acute diverticulitis of the descending/sigmoid junction without evidence of abscess or perforation. 2. Splenomegaly, probably chronic. 3. Innumerable renal cysts, question polycystic renal disease, possible left UPJ obstruction/inflammation not excluded, correlation with CT urogram recommended.
--- NOTE | 2018-06-09 17:07 | W.ED.GENAD ---
Discharge Plan Disposition Patient Disposition: HOME Condition: Stable Discharge Details Chief Complaint: Abd Prob Clinical Impression: Diverticulitis Primary Care Provider: Ivana Lui V ED Provider: Camden Lopez Home Meds and New Rx's Prescriptions: New ciprofloxacin HCl 500 mg tablet 500 mg PO BID Qty: 14 RF: 0 metronidazole [Flagyl] 500 mg tablet 500 mg PO BID Qty: 14 RF: 0 Continued indomethacin 50 mg capsule 50 mg PO TID RF: 0 pyridoxine (vitamin B6) 100 mg tablet 100 mg PO DAILY RF: 0 furosemide 20 mg tablet 40 mg PO BID RF: 0 prochlorperazine maleate 10 mg tablet 10 mg PO Q6H PRNRF: 0 terazosin 10 MG capsule 10 mg PO HS RF: 0 cranberry extract [Cranberry Concentrate] 500 MG capsule 500 mg PO DAILY RF: 0 royal jelly 500 MG capsule 500 mg PO DAILY RF: 0 FISH OIL 900 mg PO DAILY RF: 0 RASPBERRY KEYTONES 100 mg DAILY RF: 0 cyanocobalamin (vitamin B-12) [Vitamin B-12] 500 MCG tablet 500 mcg PO DAILY RF: 0 ascorbic acid (vitamin C) 1,000 MG tablet 1,000 mg PO DAILY RF: 0 garlic 100 MG tablet 300 mg PO DAILY RF: 0 vitamin E (dl, acetate) 400 UNITS capsule 400 unit PO DAILY RF: 0 pyridoxine (vitamin B6) [Vitamin B-6] 100 MG tablet 100 mg PO DAILY RF: 0 Tana-C with Bioflavonoids 1 EACH tablet 1 ea PO DAILY RF: 0 Discharge Instructions Instructions: Diverticulitis (ED) Additional Instructions: follow up with your primary care provider within 1-2 weeks if you have severe worsening pain, persistent vomit or high fevers return to the emergency department Medical Decision Making 83 yo male with multiple medical problems including 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 He denies pain now unless I am palpating the left sided abdomen in the lower quadrant. Has no inguinal pain or palpable hernia and no scrotal tenderness or swelling. Had no changes in baseline labs done today including lfts, will check lipase and obtain ct imaging to evaluate for further causes for his pain lipase normal. CT shows mild/early diverticulitis will start abx for this. Pain is improved and is stable for outpatient management. Return precautions given. His CT also showed left sided hydro, no kidney stone. He denies seeing a urologist in the past so will place on f/u list to see a urologist withiin 2-3 weeks. ? possible uti with pyelitis but has no urinary symptoms so do not suspect this at this time, but cipro I am prescribing should cover for this Differential Diagnosis diverticulitis, muscle wall pain, colitis, hernia Imaging Data Radiologic Study: Attestation: I personally reviewed and interpreted this imaging study as follows: Imaging: CT Scan Radiologist's impression: IMPRESSION: 1. Mild or early acute sigmoid diverticulitis. 2. Prominent splenomegaly, 20 cm craniocaudal dimension. Further evaluation recommended. 3. Left kidney anteriorly displaced by the enlarged spleen and by a large 10 cm renal cyst. Moderate left-sided hydronephrosis without ureterectasis suggesting obstructive physiology at the left ureteropelvic junction, possibly caused by changed renal position with kinking of the ureteropelvic junction. Apparent enhancement of the urothelium through the distended left renal collecting system. Although nonspecific, clinical correlation is recommended to assess the possibility of urinary tract infection with acute pyelitis. 4. Pancreas head obscured by motion. Peripancreatic inflammatory change not excludable in the region of the pancreatic head because of motion artifact. Normal-appearing pancreatic tail. 5. Fat containing ventral hernias, as above. Lab Data Lab results reviewed: Yes I reviewed the patient's lab results. HPI General Mode of arrival: ambulatory. Date/Time Provider Initiated Documentation: 06/09/18 16:52. Limitations to Documentation: no limitations. Information obtained by: patient. History of Present Illness 83 year old M presents to the emergency department with the chief complaint of left sided abdominal pain, described as moderate, Quality is described as stabbing, and is localized to the abdomen. Patient reports no radiation. Patient started experiencing this day(s) (1) and it has been constant. No relieving factors improve symptom(s), No exacerbating factors reported . Patient notes no other symptoms.. Patient did receive the following treatments prior to arrival, none Related Data Home Medications Medication Instructions Recorded Confirmed terazosin 10 mg PO HS tab-cap 11/26/12 06/09/18 ascorbic acid (vitamin C) 1,000 mg PO DAILY 04/09/13 06/09/18 garlic 300 mg PO DAILY 04/09/13 06/09/18 vitamin E (dl, acetate) 400 unit PO DAILY 04/09/13 06/09/18 Fish Oil 900 mg PO DAILY 01/05/16 06/09/18 Raspberry [place] 100 mg DAILY 01/05/16 06/09/18 cranberry extract [Cranberry 500 mg PO DAILY 01/05/16 06/09/18 Concentrate] royal jelly 500 mg PO DAILY 01/05/16 06/09/18 cyanocobalamin (vitamin B-12) 500 mcg PO DAILY 02/21/16 06/09/18 [Vitamin B-12] Tana-C with Bioflavonoids 1 ea PO DAILY 05/28/16 06/09/18 pyridoxine (vitamin B6) [Vitamin 100 mg PO DAILY 05/28/16 06/09/18 B-6] furosemide 20 mg tablet 40 mg PO BID tab 03/04/18 06/09/18 indomethacin 50 mg capsule 50 mg PO TID 03/04/18 06/09/18 prochlorperazine maleate 10 mg 10 mg PO Q6H PRN tab 03/04/18 06/09/18 tablet pyridoxine (vitamin B6) 100 mg 100 mg PO DAILY tab 03/04/18 06/09/18 tablet ciprofloxacin HCl 500 mg PO BID #14 tab 06/09/18 metronidazole [Flagyl] 500 mg PO BID #14 tab 06/09/18 Previous Rx's Medication Instructions Recorded ciprofloxacin HCl 500 mg PO BID #14 tab 06/09/18 metronidazole [Flagyl] 500 mg PO BID #14 tab 06/09/18 Allergies Allergy/AdvReac Type Severity Reaction Status Date / Time atenolol AdvReac Mild cough Unverified 06/09/18 16:58 diltiazem AdvReac Mild cough Unverified 06/09/18 16:58 lisinopril AdvReac Mild cough Unverified 06/09/18 16:58 verapamil AdvReac Mild cough Unverified 06/09/18 16:58 General Stated Complaint: Abd Prob PHILIP: 3 Review of Systems Review of Systems All systems reviewed & are unremarkable except as noted in HPI and below Constitutional Denies chills, Denies fever(s) and Denies weakness ENT Denies change in voice Cardiovascular Denies chest pain and Denies dyspnea Respiratory Denies cough and Denies dyspnea Gastrointestinal Denies nausea and Denies vomiting Genitourinary Denies dysuria Musculoskeletal Denies joint swelling Integumentary/Breasts Denies rash Neurologic Denies weakness [facility] Medical History Left ventricular hypertrophy (Chronic) Obesity (Chronic) Myelodysplastic disease (Chronic) Chronic back pain greater than 3 months duration (Acute) Counseling regarding advance directives and goals of care (Acute) Dilated cardiomyopathy (Acute) Spinal stenosis (Acute) Surgical History History of bone marrow biopsy (Acute) Family History Mother Heart disease CHF (congestive heart failure) Father Myocardial infarction Heart disease Brother Osteoarthritis Son HIV disease Son No problems noted. Son No problems noted. Daughter No problems noted. Social History Smoking/Tobacco Use Status: Never Alcohol Intake: never Drug use: Never Substance use type: does not use Caregiver/Support person: Yes Household members: spouse Housing: house Number of Children: 3 What is your relationship status?: Panel score (0-1 are the most socially isolated patients): 1 What type of physical activity do you participate in: none Agree to transfusion: Yes Do you feel safe at home: Yes Do you feel safe in your relationship?: Yes Exam Const General: no acute distress Orientation: alert HENMT Head: normal to inspection Ears: external ears normal General nose exam: external nose normal Mouth: moist mucous membranes Eyes General: appearance normal, both eyes and all related structures Neck Neck: normal visual inspection Resp Effort & Inspection: normal respiratory effort and able to speak in complete sentences Cardio Rate: regular rate GI Palpation: soft Skin General skin exam: no rashes or lesions noted Neuro General: alert and oriented x3 Extrem General: normal to inspection Psych Mental Status: mental status grossly normal Course Vital Signs Temperature 36.7 C 06/09/18 16:54 Pulse 88 06/09/18 16:54 Respiratory Rate 18 06/09/18 16:54 Blood Pressure 174/65 H 06/09/18 16:54 Pulse Oximetry 96 06/09/18 16:54 Temperature 36.7 C 06/09/18 16:54 Temperature Source Temporal Artery Scan 06/09/18 16:54 Pulse 88 06/09/18 16:54 Respiratory Rate 18 06/09/18 16:54 Respiratory Effort Non-Labored 06/09/18 16:54 Blood Pressure 174/65 H 06/09/18 16:54 Pulse Oximetry 96 06/09/18 16:54 Oxygen Delivery Method Room Air 06/09/18 16:54 Oxygen Flow Rate 0 06/09/18 16:54 Pain Level 10 06/09/18 16:54
[2018-06-09 17:10] LABS: Lipase 85 U/L (73-393)
[2018-06-09] MEDS: Omnipaque 350 MG/ML 100 ML BTL IJ (17:35)
--- NOTE | 2018-06-09 18:21 | DI.VRAD_ITS ---
EXAM: CT Abdomen and Pelvis With Contrast EXAM DATE/TIME: 06/09/2018 5:05 PM CLINICAL HISTORY: 83 years old, male; Pain; Abdominal pain; Localized; Left lower quadrant (llq); Patient HX: Llq pain TECHNIQUE: Imaging protocol: Axial computed tomography images of the abdomen and pelvis with intravenous contrast. Coronal and sagittal reformatted images were created and reviewed. COMPARISON: No relevant prior studies available. FINDINGS: Limitations: Imaging degraded by patient motion and streak artifact. Tubes, catheters and devices: Presumed central venous catheter partially visualized extending to the cavoatrial junction. Lower thorax: Heart only partially visualized but apparently mildly enlarged. Hazy density at the lung bases, probably an artifact of motion or atelectasis. ABDOMEN: Liver: Small indeterminate hypoattenuating hepatic lesion, incompletely characterized but most likely a small cyst or hemangioma. Gallbladder and bile ducts: Prior cholecystectomy. No gross biliary dilatation. Pancreas: Pancreas head obscured by motion. Peripancreatic inflammatory change not excludable in the region of the pancreatic head. Normal-appearing pancreatic tail. Spleen: Prominent splenomegaly with a craniocaudal dimension of 20 cm. Further evaluation recommended. Adrenals: Normal-appearing adrenal glands. Kidneys and ureters: Multiple bilateral renal cysts with the largest measuring 10 cm on the left. Inferior displacement of the left kidney, probably by the enlarged spleen and large left renal cyst. Moderate left-sided hydronephrosis with relative enhancement of the urothelium in the renal collecting system and pelvis. No left-sided ureterectasis. No right-sided hydronephrosis. Stomach and bowel: No oral contrast. Stomach partially distended with fluid. No small bowel dilatation to suggest obstruction. Diverticulosis through the descending and sigmoid colon. Faint hazy fat stranding surrounding the proximal sigmoid colon in keeping with mild or early acute diverticulitis. No associated drainable abscess or free air. Appendix: Normal appendix. PELVIS: Bladder: Urinary bladder partially collapsed but grossly unremarkable, as seen. Reproductive: Mildly enlarged prostate gland measuring 5.2 cm x 5.8 cm. Coarse prostate calcifications. Normal-appearing seminal vessels. ABDOMEN and PELVIS: Intraperitoneal space: Trace pelvic fluid. No free air. No frankly organized collection. Bones/joints: No acute fracture seen among the bones of the abdomen or pelvis. Spinal degenerative change with multilevel discogenic degeneration and facet arthrosis resulting central canal and neural foraminal narrowing at several levels. Soft tissues: Relative atrophy of the anterior abdominal wall musculature. Diastases recti. Complex fat containing ventral hernias measuring approximately 2.3 cm x 10.0 cm x 6.5 cm in the upper right-midline abdominal wall and 4.5 cm x 5.7 cm x 5.0 cm in the left para midline anterior abdominal wall just superior to the umbilicus. Small fat-containing inguinal region hernias, larger on the left. Skin thickening extending across the lower pannus. Direct inspection recommended to exclude acute cellulitis or other dermatologic pathology. Vasculature: Tortuous abdominal aorta but no aneurysmal dilatation. Lymph nodes: No pathologically enlarged mesenteric, retroperitoneal, or pelvic sidewall lymph nodes. IMPRESSION: 1. Mild or early acute sigmoid diverticulitis. 2. Prominent splenomegaly, 20 cm craniocaudal dimension. Further evaluation recommended. 3. Left kidney anteriorly displaced by the enlarged spleen and by a large 10 cm renal cyst. Moderate left-sided hydronephrosis without ureterectasis suggesting obstructive physiology at the left ureteropelvic junction, possibly caused by changed renal position with kinking of the ureteropelvic junction. Apparent enhancement of the urothelium through the distended left renal collecting system. Although nonspecific, clinical correlation is recommended to assess the possibility of urinary tract infection with acute pyelitis. 4. Pancreas head obscured by motion. Peripancreatic inflammatory change not excludable in the region of the pancreatic head because of motion artifact. Normal-appearing pancreatic tail. 5. Fat containing ventral hernias, as above. Dictated and Authenticated by: Osvaldo Yin MD. Ordering:UZMA Hannah MD
[2018-06-09 18:30] LABS: Bilirubin Negative (Negative); Blood Trace-intact (Negative); Clarity Clear; Glucose Negative (Negative); Ketones Negative (Negative); Leukocyte Esterase Negative (Negative); Nitrite Negative (Negative); Specific Gravity <= 1.005 (1.005-1.025); pH 5.5 (5-8)
[2018-06-09 19:11] LABS: Bacteria Rare HPF (Negative); C & S Indicated? No; Casts Negative LPF (Negative); Crystals Negative HPF (Negative); Epithelial Cells Negative HPF (Negative); Mucus Negative (Negative); Other Cells Negative (Negative); WBC 0-2 HPF (0-5)
--- NOTE | 2018-06-10 10:40 | PDOC.ERCMPRO ---
Care Management Progress Note 06/10-Dr. Lopez requested assistance with a urology f/u for hydronephrosis. [facility] this [facility].
== END 2018-06-09 18:49 | disposition home or self-care (01) ==
PROVIDERS: Emergency Provider Emergency Medicine; PCP Family Medicine
DX: K57.30 Diverticulosis of large intestine without perforation or abscess without bleeding (principal); N13.39 Other hydronephrosis; N28.1 Cyst of kidney, acquired; R16.1 Splenomegaly, not elsewhere classified
CPT/HCPCS: 36415; 83690; 99285; 74177; 81003; 81015; 99284; J3490

== ENCOUNTER 2018-06-12 12:00 | Outpatient (RCR) | payer MEDICARE, SELFPAY ==
[2018-05-15 09:16] LABS: Abs Immature Grans 0.31 k/cumm (0.0-0.09); HCT 24.4 % (40.0-50.0); Mean Corp. HGB Concentration 32.8 g/dL (32.0-36.0); Mean Corpuscular Hemoglobin 29.1 pg (27.0-33.0); Mean Corpuscular Volume 88.7 fL (80-95); Mean Platelet Volume 9.8 fL (8.0-11.0); RBC 2.75 m/cumm (4.50-6.00); RBC Distribution Width 14.9 % (11.8-14.1); White Blood Cell Count 2.34 k/cumm (4.4-10.8)
[2018-05-15 09:19] LABS: ALT 25 U/L (12-78); AST 16 U/L (15-37); Albumin 2.9 g/dL (3.4-5.0); Alkaline Phosphatase 83 U/L (46-116); Anion Gap 9.3 mmol/L (3-11); BUN 43 mg/dL (7-18); Bilirubin, Total 1.2 mg/dL (0.2-1.0); CO2 26.7 mmol/L (21.0-32.0); CREATININE 1.61 mg/dL (0.70-1.30); Calcium 8.3 mg/dL (8.5-10.1); Chloride 108 mmol/L (98-107); Estimated GFR 41.29 (mL/min/1.73m2); Glucose 120 mg/dL (70-100); Potassium 3.9 mmol/L (3.5-5.1); Sodium 144 mmol/L (136-145); Total Protein 5.6 g/dL (6.4-8.2)
[2018-05-15 09:41] LABS: Platelet Count 17 x1000/uL (130-400)
[2018-05-15 09:42] LABS: Absolute Lymphocyte Count 1.19 k/cumm (1.2-3.4); Absolute Monocyte Count 0.12 k/cumm (0.11-0.7); Atypical Lymphocytes % 6; Promyelocytes % 1 %
[2018-05-15 09:43] LABS: Other Cells 5
[2018-05-15 09:44] LABS: Diff Comment Manual Differential; RBC Morphology Normal
[2018-05-16] VITALS (8 sets, daily range): BP systolic 144–172; BP diastolic 40–60; PULSE 50–70; RESP 17–18; TEMP 35–36.4; O2SAT 94–98
[2018-05-16] MEDS: Normal Saline Flush 10 ML SYR IVP (09:30)
[2018-05-19 09:06] LABS: Abs Immature Grans 0.37 k/cumm (0.0-0.09); HCT 25.1 % (40.0-50.0); HGB 8.3 g/dL (13.5-17.5); Mean Corp. HGB Concentration 33.1 g/dL (32.0-36.0); Mean Corpuscular Hemoglobin 29.4 pg (27.0-33.0); Mean Platelet Volume 9.8 fL (8.0-11.0); RBC 2.82 m/cumm (4.50-6.00); RBC Distribution Width 15.1 % (11.8-14.1); White Blood Cell Count 3.16 k/cumm (4.4-10.8)
[2018-05-19 09:38] LABS: Absolute Neutrophil Count 0.82 k/cumm (1.2-6.7); Platelet Count 31 x1000/uL (130-400)
[2018-05-19 09:39] LABS: Absolute Lymphocyte Count 1.49 k/cumm (1.2-3.4); Absolute Monocyte Count 0.44 k/cumm (0.11-0.7)
[2018-05-19 09:40] LABS: Anisocytosis 1+; Diff Comment Manual Differential; Other Cells 5; Polychromasia Present
[2018-05-19 10:11] LABS: ALT 27 U/L (12-78); AST 20 U/L (15-37); Albumin 2.9 g/dL (3.4-5.0); Alkaline Phosphatase 82 U/L (46-116); Anion Gap 8.1 mmol/L (3-11); BUN 43 mg/dL (7-18); Bilirubin, Total 1.1 mg/dL (0.2-1.0); CO2 27.9 mmol/L (21.0-32.0); CREATININE 1.68 mg/dL (0.70-1.30); Calcium 8.6 mg/dL (8.5-10.1); Chloride 108 mmol/L (98-107); Estimated GFR 39.31 (mL/min/1.73m2); Glucose 125 mg/dL (70-100); Potassium 3.9 mmol/L (3.5-5.1); Sodium 144 mmol/L (136-145); Total Protein 5.7 g/dL (6.4-8.2)
[2018-05-19 10:22] VITALS: BP 147/42; PULSE 61; RESP 20; TEMP 36.2; O2SAT 95
[2018-05-19 11:04] VITALS: BP 138/40; PULSE 60; RESP 20; TEMP 35.7; O2SAT 95
[2018-05-19 11:19] VITALS: BP 108/44; PULSE 56; RESP 18; TEMP 36.2; O2SAT 95
[2018-05-19 11:49] VITALS: BP 132/47; PULSE 60; RESP 18; TEMP 36; O2SAT 95
[2018-05-19 12:49] VITALS: BP 152/58; PULSE 71; RESP 18; TEMP 37; O2SAT 96
[2018-05-19] MEDS: Furosemide 40 MG TAB PO (13:28)
[2018-05-19] MEDS: Normal Saline Flush 10 ML SYR IVP (13:28)
[2018-05-19 13:29] VITALS: BP 137/44; PULSE 70; RESP 18; TEMP 36.4; O2SAT 95
[2018-05-22 09:05] LABS: HCT 25.9 % (40.0-50.0); HGB 8.5 g/dL (13.5-17.5); Mean Corp. HGB Concentration 32.8 g/dL (32.0-36.0); Mean Corpuscular Hemoglobin 29.4 pg (27.0-33.0); Mean Corpuscular Volume 89.6 fL (80-95); Mean Platelet Volume 10.1 fL (8.0-11.0); RBC 2.89 m/cumm (4.50-6.00); RBC Distribution Width 15.2 % (11.8-14.1); White Blood Cell Count 2.84 k/cumm (4.4-10.8)
[2018-05-22 09:15] LABS: ALT 27 U/L (12-78); AST 19 U/L (15-37); Alkaline Phosphatase 87 U/L (46-116); Anion Gap 9.4 mmol/L (3-11); BUN 38 mg/dL (7-18); Bilirubin, Total 1.1 mg/dL (0.2-1.0); CO2 26.6 mmol/L (21.0-32.0); CREATININE 1.57 mg/dL (0.70-1.30); Chloride 107 mmol/L (98-107); Estimated GFR 42.51 (mL/min/1.73m2); Glucose 127 mg/dL (70-100); Potassium 3.8 mmol/L (3.5-5.1); Sodium 143 mmol/L (136-145); Total Protein 5.6 g/dL (6.4-8.2)
[2018-05-22 09:32] LABS: Absolute Neutrophil Count 0.99 k/cumm (1.2-6.7)
[2018-05-22 09:33] LABS: Absolute Basophil Count 0.03 k/cumm (0.0-0.2); Absolute Lymphocyte Count 1.05 k/cumm (1.2-3.4); Absolute Monocyte Count 0.26 k/cumm (0.11-0.7); Atypical Lymphocytes % 3
[2018-05-22 09:37] LABS: Other Cells 12; Platelet Count 38 x1000/uL (130-400)
[2018-05-22 09:38] LABS: Anisocytosis 1+; Diff Comment Manual Differential; Hypochromasia 1+; Macrocytosis 1+; Polychromasia Present
[2018-05-22] MEDS: Normal Saline Flush 10 ML SYR IVP (09:48)
[2018-05-26 09:04] LABS: HCT 24.6 % (40.0-50.0); Mean Corp. HGB Concentration 32.5 g/dL (32.0-36.0); Mean Corpuscular Hemoglobin 29.4 pg (27.0-33.0); Mean Corpuscular Volume 90.4 fL (80-95); Mean Platelet Volume 8.5 fL (8.0-11.0); RBC 2.72 m/cumm (4.50-6.00); RBC Distribution Width 15.3 % (11.8-14.1); White Blood Cell Count 4.06 k/cumm (4.4-10.8)
[2018-05-26 09:17] LABS: ALT 30 U/L (12-78); AST 18 U/L (15-37); Albumin 2.9 g/dL (3.4-5.0); Alkaline Phosphatase 85 U/L (46-116); Anion Gap 7.4 mmol/L (3-11); BUN 41 mg/dL (7-18); Bilirubin, Total 1.1 mg/dL (0.2-1.0); CO2 28.6 mmol/L (21.0-32.0); CREATININE 1.56 mg/dL (0.70-1.30); Calcium 8.3 mg/dL (8.5-10.1); Chloride 107 mmol/L (98-107); Estimated GFR 42.82 (mL/min/1.73m2); Glucose 119 mg/dL (70-100); Sodium 143 mmol/L (136-145); Total Protein 5.7 g/dL (6.4-8.2)
[2018-05-26 09:27] LABS: Absolute Lymphocyte Count 1.66 k/cumm (1.2-3.4); Absolute Monocyte Count 0.32 k/cumm (0.11-0.7); Absolute Neutrophil Count 1.26 k/cumm (1.2-6.7); Platelet Count 44 x1000/uL (130-400)
[2018-05-26 09:28] LABS: Absolute Eosinophil Count 0.04 k/cumm (0.0-0.7); Diff Comment Manual Differential
[2018-05-26 09:29] LABS: Promyelocytes % 2 %
[2018-05-26 09:30] LABS: Anisocytosis 1+; Hypochromasia 1+; Polychromasia Present
[2018-05-26 09:34] LABS: Other Cells 10
[2018-05-26 11:13] VITALS: BP 141/56; PULSE 54; RESP 18; TEMP 36.5; O2SAT 91
[2018-05-26 11:28] VITALS: BP 136/51; PULSE 53; RESP 18; TEMP 36.5; O2SAT 94
[2018-05-26] MEDS: Normal Saline Flush 10 ML SYR IVP (11:30)
[2018-05-26 11:58] VITALS: BP 130/40; PULSE 62; RESP 18; TEMP 36.4; O2SAT 94
[2018-05-26 12:58] VITALS: BP 135/45; PULSE 68; RESP 18; TEMP 36.4; O2SAT 98
[2018-05-26] MEDS: Furosemide 40 MG TAB PO (13:47)
[2018-05-26 13:54] VITALS: BP 145/46; PULSE 68; RESP 18; TEMP 36.4
[2018-05-29 09:06] LABS: HCT 25.4 % (40.0-50.0); HGB 8.4 g/dL (13.5-17.5); Mean Corp. HGB Concentration 33.1 g/dL (32.0-36.0); Mean Corpuscular Hemoglobin 29.8 pg (27.0-33.0); Mean Corpuscular Volume 90.1 fL (80-95); RBC 2.82 m/cumm (4.50-6.00); RBC Distribution Width 15.3 % (11.8-14.1); White Blood Cell Count 4.18 k/cumm (4.4-10.8)
[2018-05-29 09:16] LABS: ALT 29 U/L (12-78); AST 18 U/L (15-37); Albumin 2.9 g/dL (3.4-5.0); Alkaline Phosphatase 85 U/L (46-116); BUN 40 mg/dL (7-18); Bilirubin, Total 1.1 mg/dL (0.2-1.0); CREATININE 1.54 mg/dL (0.70-1.30); Calcium 8.3 mg/dL (8.5-10.1); Chloride 105 mmol/L (98-107); Estimated GFR 43.47 (mL/min/1.73m2); Glucose 145 mg/dL (70-100); Potassium 3.7 mmol/L (3.5-5.1); Sodium 139 mmol/L (136-145); Total Protein 5.6 g/dL (6.4-8.2)
[2018-05-29 09:46] LABS: Absolute Basophil Count 0.04 k/cumm (0.0-0.2); Absolute Eosinophil Count 0.04 k/cumm (0.0-0.7); Absolute Lymphocyte Count 1.92 k/cumm (1.2-3.4); Absolute Monocyte Count 0.63 k/cumm (0.11-0.7); Absolute Neutrophil Count 1.13 k/cumm (1.2-6.7); Atypical Lymphocytes % 6; Platelet Count 42 x1000/uL (130-400)
[2018-05-29 09:47] LABS: Nucleated RBC 2 /100WBC
[2018-05-29 09:49] LABS: Diff Comment Manual Differential
[2018-05-29 09:50] LABS: Microcytosis 2+; Poikilocytes 1+
[2018-05-29 10:10] VITALS: BP 136/59; PULSE 64; RESP 18; TEMP 36.7; O2SAT 95
[2018-05-29 10:29] VITALS: BP 152/58; PULSE 54; RESP 18; TEMP 36.4; O2SAT 95
[2018-05-29 10:44] VITALS: BP 136/54; PULSE 60; RESP 18; TEMP 36.6; O2SAT 95
[2018-05-29 11:14] VITALS: BP 134/57; PULSE 55; RESP 18; TEMP 36.7; O2SAT 95
[2018-05-29 12:14] VITALS: BP 141/52; PULSE 55; RESP 18; TEMP 36.4; O2SAT 95
[2018-05-29] MEDS: Furosemide 40 MG TAB PO (13:09)
[2018-05-29 13:10] VITALS: BP 140/49; PULSE 60; RESP 18; TEMP 36.6; O2SAT 96
[2018-05-29] MEDS: Normal Saline Flush 10 ML SYR IVP (13:16)
[2018-06-02 08:59] LABS: Abs Immature Grans 0.68 k/cumm (0.0-0.09); HCT 25.7 % (40.0-50.0); HGB 8.4 g/dL (13.5-17.5); Mean Corp. HGB Concentration 32.7 g/dL (32.0-36.0); Mean Corpuscular Hemoglobin 29.9 pg (27.0-33.0); Mean Corpuscular Volume 91.5 fL (80-95); Mean Platelet Volume 10.2 fL (8.0-11.0); RBC 2.81 m/cumm (4.50-6.00); RBC Distribution Width 15.5 % (11.8-14.1); White Blood Cell Count 5.98 k/cumm (4.4-10.8)
[2018-06-02 09:13] LABS: ALT 30 U/L (12-78); AST 21 U/L (15-37); Alkaline Phosphatase 84 U/L (46-116); Anion Gap 6.5 mmol/L (3-11); BUN 39 mg/dL (7-18); Bilirubin, Total 1.1 mg/dL (0.2-1.0); CO2 28.5 mmol/L (21.0-32.0); CREATININE 1.59 mg/dL (0.70-1.30); Chloride 106 mmol/L (98-107); Estimated GFR 41.89 (mL/min/1.73m2); Glucose 125 mg/dL (70-100); Potassium 3.9 mmol/L (3.5-5.1); Sodium 141 mmol/L (136-145); Total Protein 5.6 g/dL (6.4-8.2)
[2018-06-02 09:17] LABS: Absolute Lymphocyte Count 2.81 k/cumm (1.2-3.4); Absolute Neutrophil Count 1.91 k/cumm (1.2-6.7)
[2018-06-02 09:20] LABS: Absolute Monocyte Count 0.48 k/cumm (0.11-0.7); Platelet Count 42 x1000/uL (130-400)
[2018-06-02 09:21] LABS: Anisocytosis 1+; Diff Comment Manual Differential; Nucleated RBC 2 /100WBC
[2018-06-02 09:22] LABS: Polychromasia Present
[2018-06-02 09:28] LABS: Other Cells 5
[2018-06-02 10:27] VITALS: BP 138/50; PULSE 58; RESP 18; TEMP 36.2; O2SAT 96
[2018-06-02 10:51] VITALS: BP 128/51; PULSE 63; RESP 18; TEMP 36.7; O2SAT 98
[2018-06-02 11:06] VITALS: BP 133/51; PULSE 60; RESP 18; TEMP 36.6; O2SAT 96
[2018-06-02 11:33] VITALS: BP 135/55; PULSE 59; RESP 18; TEMP 36.5; O2SAT 98
[2018-06-02 11:36] VITALS: BP 132/50; PULSE 65; RESP 18; TEMP 36.6; O2SAT 97
[2018-06-02] MEDS: Furosemide 40 MG TAB PO (13:26)
[2018-06-02] MEDS: Normal Saline Flush 10 ML SYR IVP (13:31)
[2018-06-02 13:32] VITALS: BP 140/56; PULSE 82; RESP 18; TEMP 36.4; O2SAT 98
[2018-06-05 09:07] LABS: HCT 25.9 % (40.0-50.0); HGB 8.6 g/dL (13.5-17.5); Mean Corp. HGB Concentration 33.2 g/dL (32.0-36.0); Mean Corpuscular Hemoglobin 30.3 pg (27.0-33.0); Mean Corpuscular Volume 91.2 fL (80-95); Mean Platelet Volume 10.1 fL (8.0-11.0); Platelet Count 42 x1000/uL (130-400); RBC 2.84 m/cumm (4.50-6.00); RBC Distribution Width 15.2 % (11.8-14.1); White Blood Cell Count 6.11 k/cumm (4.4-10.8)
[2018-06-05 09:23] LABS: ALT 33 U/L (12-78); AST 20 U/L (15-37); Albumin 2.9 g/dL (3.4-5.0); Alkaline Phosphatase 90 U/L (46-116); Anion Gap 7.5 mmol/L (3-11); BUN 38 mg/dL (7-18); Bilirubin, Total 1.2 mg/dL (0.2-1.0); CO2 29.5 mmol/L (21.0-32.0); CREATININE 1.58 mg/dL (0.70-1.30); Calcium 8.1 mg/dL (8.5-10.1); Chloride 107 mmol/L (98-107); Glucose 120 mg/dL (70-100); Sodium 144 mmol/L (136-145); Total Protein 5.6 g/dL (6.4-8.2)
[2018-06-05 09:33] LABS: Absolute Basophil Count 0.24 k/cumm (0.0-0.2); Absolute Eosinophil Count 0.06 k/cumm (0.0-0.7); Absolute Lymphocyte Count 1.71 k/cumm (1.2-3.4); Absolute Monocyte Count 0.86 k/cumm (0.11-0.7); Atypical Lymphocytes % 2
[2018-06-05 09:34] LABS: Promyelocytes % 2 %
[2018-06-05 09:37] LABS: Other Cells 13
[2018-06-05 09:38] LABS: Anisocytosis 1+; Diff Comment Manual Differential; Hypochromasia 1+; Poikilocytes 1+; Polychromasia Present
[2018-06-05] MEDS: Normal Saline Flush 10 ML SYR IVP (09:45)
[2018-06-05 10:22] VITALS: BP 132/50; PULSE 65; RESP 18; TEMP 36.6; O2SAT 97
[2018-06-09] VITALS (7 sets, daily range): BP systolic 116–152; BP diastolic 46–57; PULSE 64–85; RESP 18; TEMP 36–36.6; O2SAT 93–99
[2018-06-09] MEDS: Normal Saline Flush 10 ML SYR IVP ×2 (09:50→14:00)
[2018-06-09 10:42] LABS: Abs Immature Grans 0.92 k/cumm (0.0-0.09); HCT 23.1 % (40.0-50.0); HGB 7.6 g/dL (13.5-17.5); Mean Corp. HGB Concentration 32.9 g/dL (32.0-36.0); Mean Corpuscular Hemoglobin 30.2 pg (27.0-33.0); Mean Corpuscular Volume 91.7 fL (80-95); Mean Platelet Volume 9.1 fL (8.0-11.0); RBC 2.52 m/cumm (4.50-6.00); RBC Distribution Width 15.4 % (11.8-14.1); White Blood Cell Count 8.54 k/cumm (4.4-10.8)
[2018-06-09 10:55] LABS: ALT 29 U/L (12-78); AST 18 U/L (15-37); Alkaline Phosphatase 99 U/L (46-116); BUN 39 mg/dL (7-18); Bilirubin, Total 1.2 mg/dL (0.2-1.0); CREATININE 1.82 mg/dL (0.70-1.30); Calcium 7.9 mg/dL (8.5-10.1); Chloride 104 mmol/L (98-107); Estimated GFR 35.84 (mL/min/1.73m2); Glucose 126 mg/dL (70-100); Potassium 3.8 mmol/L (3.5-5.1); Sodium 141 mmol/L (136-145); Total Protein 5.7 g/dL (6.4-8.2)
[2018-06-09 11:37] LABS: Platelet Count 43 x1000/uL (130-400)
[2018-06-09 11:38] LABS: Absolute Basophil Count 0.09 k/cumm (0.0-0.2); Absolute Lymphocyte Count 2.56 k/cumm (1.2-3.4); Absolute Monocyte Count 1.02 k/cumm (0.11-0.7); Absolute Neutrophil Count 3.67 k/cumm (1.2-6.7); Atypical Lymphocytes % 5
[2018-06-09 11:40] LABS: Anisocytosis 1+; Diff Comment Manual Differential; Other Cells 7; Polychromasia Present; Promyelocytes % 1 %
[2018-06-09 11:41] LABS: Poikilocytes 1+
[2018-06-09] MEDS: Furosemide 40 MG TAB PO (15:59)
[2018-06-10 11:08] VITALS: BP 160/58; PULSE 71; RESP 18; TEMP 36.4; O2SAT 98
[2018-06-10 11:38] VITALS: BP 140/51; PULSE 78; RESP 18; TEMP 36.5; O2SAT 98
[2018-06-10 11:53] VITALS: BP 145/50; PULSE 75; RESP 18; TEMP 36.5; O2SAT 98
[2018-06-10 12:23] VITALS: BP 147/56; PULSE 65; RESP 18; TEMP 36.8; O2SAT 94
[2018-06-10 13:23] VITALS: BP 132/53; PULSE 65; RESP 18; TEMP 36.1; O2SAT 96
[2018-06-12 09:56] LABS: Abs Immature Grans 0.52 k/cumm (0.0-0.09); HCT 24.1 % (40.0-50.0); Mean Corp. HGB Concentration 33.2 g/dL (32.0-36.0); Mean Corpuscular Hemoglobin 30.1 pg (27.0-33.0); Mean Corpuscular Volume 90.6 fL (80-95); Mean Platelet Volume 9.9 fL (8.0-11.0); RBC 2.66 m/cumm (4.50-6.00); RBC Distribution Width 15.6 % (11.8-14.1); White Blood Cell Count 4.08 k/cumm (4.4-10.8)
[2018-06-12 10:08] LABS: ALT 26 U/L (12-78); AST 20 U/L (15-37); Albumin 2.8 g/dL (3.4-5.0); Alkaline Phosphatase 89 U/L (46-116); Anion Gap 10.2 mmol/L (3-11); BUN 46 mg/dL (7-18); CO2 24.8 mmol/L (21.0-32.0); Calcium 7.7 mg/dL (8.5-10.1); Chloride 107 mmol/L (98-107); Glucose 130 mg/dL (70-100); Potassium 3.8 mmol/L (3.5-5.1); Sodium 142 mmol/L (136-145); Total Protein 5.5 g/dL (6.4-8.2)
[2018-06-12 10:22] LABS: Platelet Count 43 x1000/uL (130-400)
[2018-06-12 11:06] LABS: Absolute Neutrophil Count 1.47 k/cumm (1.2-6.7)
[2018-06-12 11:08] LABS: Absolute Lymphocyte Count 1.39 k/cumm (1.2-3.4); Absolute Monocyte Count 0.53 k/cumm (0.11-0.7)
[2018-06-12 11:09] LABS: Anisocytosis 2+; Diff Comment Manual Differential
[2018-06-12 11:10] LABS: Poikilocytes 1+
[2018-06-12 11:52] VITALS: BP 165/61; PULSE 74; RESP 18; TEMP 36.6; O2SAT 98
[2018-06-12 11:56] LABS: Other Cells 10
[2018-06-12 12:27] VITALS: BP 137/47; PULSE 63; RESP 18; TEMP 36.5; O2SAT 97
[2018-06-12 12:37] VITALS: BP 123/45; PULSE 63; RESP 18; TEMP 36.5; O2SAT 96
[2018-06-12 13:22] VITALS: BP 146/52; PULSE 68; RESP 18; TEMP 36.5; O2SAT 96
[2018-06-12 14:07] VITALS: BP 136/46; PULSE 62; RESP 18; TEMP 36.5; O2SAT 96
[2018-06-12 14:12] VITALS: BP 137/54; PULSE 95; RESP 18; TEMP 36.6; O2SAT 98
[2018-06-12] MEDS: Normal Saline Flush 10 ML SYR IVP (14:28)
[2018-06-12] MEDS: Furosemide 40 MG TAB PO (14:30)
== END 2018-06-15 23:59 | disposition home or self-care (01) ==
LOC: INF 12:00
PROVIDERS: PCP Family Medicine; Visit Provider Internal Medicine Hematology & Oncology
DX: D46.20 Refractory anemia with excess of blasts, unspecified (principal); K57.30 Diverticulosis of large intestine without perforation or abscess without bleeding; N13.39 Other hydronephrosis; N28.1 Cyst of kidney, acquired; R16.1 Splenomegaly, not elsewhere classified
CPT/HCPCS: 36415; 36430; 36591; 80053; 83690; 86850; 86900; 86901; 86920; 99285; 74177; 81003; 81015; 85025; 99284; J3490; P9016; P9035

== ENCOUNTER → 2018-06-24 10:48 | Outpatient (BNVA) | payer MEDICARE, SELFPAY | PROVIDERS: PCP Family Medicine; Referring Provider Family Medicine; Visit Provider Nurse Practitioner Gerontology | DX: N28.1 Cyst of kidney, acquired (principal); I10 Essential (primary) hypertension; D46.9 Myelodysplastic syndrome, unspecified | CPT/HCPCS: 51798; 99204; 99215 ==

== ENCOUNTER 2018-07-14 01:39 | Outpatient (RCR) | payer MEDICARE, SELFPAY ==
[2018-06-16] MEDS: Normal Saline Flush 10 ML SYR IVP (08:35)
[2018-06-16 08:54] LABS: Abs Immature Grans 0.16 k/cumm (0.0-0.09); HCT 24.3 % (40.0-50.0); HGB 8.2 g/dL (13.5-17.5); Mean Corp. HGB Concentration 33.7 g/dL (32.0-36.0); Mean Corpuscular Hemoglobin 30.7 pg (27.0-33.0); Mean Platelet Volume 9.6 fL (8.0-11.0); RBC 2.67 m/cumm (4.50-6.00); RBC Distribution Width 15.2 % (11.8-14.1); White Blood Cell Count 3.04 k/cumm (4.4-10.8)
[2018-06-16 09:30] LABS: Absolute Lymphocyte Count 1.31 k/cumm (1.2-3.4); Absolute Monocyte Count 0.43 k/cumm (0.11-0.7); Absolute Neutrophil Count 0.97 k/cumm (1.2-6.7); Atypical Lymphocytes % 2; Platelet Count 36 x1000/uL (130-400)
[2018-06-16 09:31] LABS: Absolute Basophil Count 0.03 k/cumm (0.0-0.2)
[2018-06-16 09:32] LABS: Other Cells 7
[2018-06-16 09:33] LABS: Anisocytosis 1+; Diff Comment Manual Differential; Poikilocytes 1+; Polychromasia Present
[2018-06-16 09:48] LABS: ALT 47 U/L (12-78); AST 25 U/L (15-37); Albumin 2.9 g/dL (3.4-5.0); Alkaline Phosphatase 76 U/L (46-116); Anion Gap 11.8 mmol/L (3-11); BUN 49 mg/dL (7-18); CO2 25.2 mmol/L (21.0-32.0); CREATININE 1.86 mg/dL (0.70-1.30); Calcium 7.9 mg/dL (8.5-10.1); Chloride 107 mmol/L (98-107); Estimated GFR 34.96 (mL/min/1.73m2); Glucose 130 mg/dL (70-100); Potassium 3.7 mmol/L (3.5-5.1); Sodium 144 mmol/L (136-145); Total Protein 5.3 g/dL (6.4-8.2)
[2018-06-16 10:36] VITALS: BP 149/51; PULSE 72; RESP 18; TEMP 36.5; O2SAT 97
[2018-06-16 10:43] VITALS: BP 122/52; PULSE 63; RESP 18; TEMP 36.6; O2SAT 96
[2018-06-16 10:58] VITALS: BP 132/45; PULSE 70; RESP 18; TEMP 36.6; O2SAT 98
[2018-06-16 11:28] VITALS: BP 120/55; PULSE 64; RESP 18; TEMP 36.6; O2SAT 96
[2018-06-16 12:28] VITALS: BP 120/50; PULSE 66; RESP 18; TEMP 36.6; O2SAT 99
[2018-06-16] MEDS: Furosemide 40 MG TAB PO (13:25)
[2018-06-16 13:28] VITALS: BP 130/55; PULSE 75; RESP 18; TEMP 36.5; O2SAT 98
[2018-06-19] VITALS (7 sets, daily range): BP systolic 122–147; BP diastolic 44–62; PULSE 51–75; RESP 18; TEMP 36.2–36.5; O2SAT 92–98
[2018-06-19] MEDS: Normal Saline Flush 10 ML SYR IVP ×2 (10:50→15:16)
[2018-06-19 11:34] LABS: ALT 45 U/L (12-78); AST 21 U/L (15-37); Albumin 2.7 g/dL (3.4-5.0); Alkaline Phosphatase 71 U/L (46-116); Anion Gap 9.8 mmol/L (3-11); BUN 46 mg/dL (7-18); Bilirubin, Total 0.9 mg/dL (0.2-1.0); CO2 26.2 mmol/L (21.0-32.0); CREATININE 1.59 mg/dL (0.70-1.30); Calcium 7.6 mg/dL (8.5-10.1); Chloride 107 mmol/L (98-107); Estimated GFR 41.89 (mL/min/1.73m2); Glucose 137 mg/dL (70-100); Potassium 3.8 mmol/L (3.5-5.1); Sodium 143 mmol/L (136-145); Total Protein 5.2 g/dL (6.4-8.2)
[2018-06-19 11:47] LABS: Abs Immature Grans 0.08 k/cumm (0.0-0.09); HCT 24.7 % (40.0-50.0); HGB 8.1 g/dL (13.5-17.5); Mean Corp. HGB Concentration 32.8 g/dL (32.0-36.0); Mean Corpuscular Volume 91.5 fL (80-95); Mean Platelet Volume 9.8 fL (8.0-11.0); RBC Distribution Width 15.2 % (11.8-14.1)
[2018-06-19 12:23] LABS: White Blood Cell Count 1.92 k/cumm (4.4-10.8)
[2018-06-19 12:24] LABS: Absolute Lymphocyte Count 0.61 k/cumm (1.2-3.4); Absolute Monocyte Count 0.52 k/cumm (0.11-0.7); Absolute Neutrophil Count 0.67 k/cumm (1.2-6.7); Platelet Count 35 x1000/uL (130-400)
[2018-06-19 12:26] LABS: Diff Comment Manual Differential; Microcytosis 2+; Nucleated RBC 3 /100WBC; Other Cells 3
[2018-06-23] VITALS (11 sets, daily range): BP systolic 133–151; BP diastolic 50–60; PULSE 60–77; RESP 18; TEMP 36.2–36.6; O2SAT 96–99
[2018-06-23 09:23] LABS: Abs Immature Grans 0.02 k/cumm (0.0-0.09); Absolute Lymphocyte Count 0.76 k/cumm (1.2-3.4); HCT 24.5 % (40.0-50.0); HGB 7.9 g/dL (13.5-17.5); Immature Grans % 1.4; Lymphocytes % 52.1; Mean Corp. HGB Concentration 32.2 g/dL (32.0-36.0); Mean Corpuscular Hemoglobin 29.3 pg (27.0-33.0); Mean Corpuscular Volume 90.7 fL (80-95); Mean Platelet Volume 9.3 fL (8.0-11.0); Monocytes % 13.7; RBC Distribution Width 14.5 % (11.8-14.1)
[2018-06-23 09:36] LABS: ALT 48 U/L (12-78); AST 22 U/L (15-37); Albumin 2.8 g/dL (3.4-5.0); Alkaline Phosphatase 77 U/L (46-116); Anion Gap 10.2 mmol/L (3-11); BUN 45 mg/dL (7-18); Bilirubin, Total 1.4 mg/dL (0.2-1.0); CO2 25.8 mmol/L (21.0-32.0); CREATININE 1.56 mg/dL (0.70-1.30); Calcium 7.9 mg/dL (8.5-10.1); Chloride 107 mmol/L (98-107); Estimated GFR 42.82 (mL/min/1.73m2); Glucose 131 mg/dL (70-100); Potassium 4.1 mmol/L (3.5-5.1); Sodium 143 mmol/L (136-145); Total Protein 5.4 g/dL (6.4-8.2)
[2018-06-23 09:43] LABS: White Blood Cell Count 1.46 k/cumm (4.4-10.8)
[2018-06-23 09:44] LABS: Absolute Neutrophil Count 0.48 k/cumm (1.2-6.7)
[2018-06-23 09:45] LABS: Platelet Count 26 x1000/uL (130-400)
[2018-06-23 09:46] LABS: Diff Comment Agrees w/ Instrument; Hypochromasia 1+; Neutrophils % 32.8; Polychromasia Present
[2018-06-23 09:47] LABS: Poikilocytes 1+
[2018-06-23] MEDS: Normal Saline Flush 10 ML SYR IVP ×2 (11:03→15:32)
[2018-06-23] MEDS: Furosemide 40 MG TAB PO (15:05)
[2018-06-26] VITALS (7 sets, daily range): BP systolic 122–145; BP diastolic 54–62; PULSE 56–64; RESP 18; TEMP 36.4–36.5; O2SAT 94–98
[2018-06-26] MEDS: Normal Saline Flush 10 ML SYR IVP ×2 (08:55→14:00)
[2018-06-26 09:32] LABS: Abs Immature Grans 0.03 k/cumm (0.0-0.09); Absolute Lymphocyte Count 0.44 k/cumm (1.2-3.4); HCT 24.6 % (40.0-50.0); HGB 8.2 g/dL (13.5-17.5); Mean Corp. HGB Concentration 33.3 g/dL (32.0-36.0); Mean Corpuscular Hemoglobin 29.9 pg (27.0-33.0); Mean Corpuscular Volume 89.8 fL (80-95); Mean Platelet Volume 8.8 fL (8.0-11.0); RBC 2.74 m/cumm (4.50-6.00); RBC Distribution Width 14.5 % (11.8-14.1)
[2018-06-26 09:44] LABS: ALT 41 U/L (12-78); AST 20 U/L (15-37); Albumin 2.8 g/dL (3.4-5.0); Alkaline Phosphatase 86 U/L (46-116); Anion Gap 9.8 mmol/L (3-11); BUN 48 mg/dL (7-18); Bilirubin, Total 1.4 mg/dL (0.2-1.0); CO2 27.2 mmol/L (21.0-32.0); CREATININE 1.64 mg/dL (0.70-1.30); Calcium 8.1 mg/dL (8.5-10.1); Chloride 106 mmol/L (98-107); Estimated GFR 40.42 (mL/min/1.73m2); Glucose 127 mg/dL (70-100); Sodium 143 mmol/L (136-145); Total Protein 5.3 g/dL (6.4-8.2)
[2018-06-26 09:53] LABS: White Blood Cell Count 0.99 k/cumm (4.4-10.8)
[2018-06-26 09:54] LABS: Absolute Neutrophil Count 0.34 k/cumm (1.2-6.7); Platelet Count 11 x1000/uL (130-400)
[2018-06-26 09:55] LABS: Absolute Eosinophil Count 0.02 k/cumm (0.0-0.7)
[2018-06-26 09:56] LABS: Diff Comment Manual Differential
[2018-06-26] MEDS: Furosemide 40 MG TAB PO (13:56)
[2018-06-30] VITALS (12 sets, daily range): BP systolic 133–150; BP diastolic 47–67; PULSE 50–65; RESP 18–19; TEMP 36.4–36.7; O2SAT 92–98
[2018-06-30] MEDS: Normal Saline Flush 10 ML SYR IVP ×2 (08:50→16:53)
[2018-06-30 09:20] LABS: Abs Immature Grans 0.02 k/cumm (0.0-0.09); Absolute Lymphocyte Count 0.58 k/cumm (1.2-3.4); Absolute Monocyte Count 0.34 k/cumm (0.11-0.7); HGB 7.7 g/dL (13.5-17.5); Immature Grans % 1.7; Lymphocytes % 48.7; Mean Corp. HGB Concentration 33.5 g/dL (32.0-36.0); Mean Corpuscular Hemoglobin 29.5 pg (27.0-33.0); Mean Corpuscular Volume 88.1 fL (80-95); Mean Platelet Volume 9.2 fL (8.0-11.0); Monocytes % 28.6; RBC 2.61 m/cumm (4.50-6.00); RBC Distribution Width 13.9 % (11.8-14.1)
[2018-06-30 09:43] LABS: ALT 45 U/L (12-78); AST 23 U/L (15-37); Albumin 2.9 g/dL (3.4-5.0); Alkaline Phosphatase 105 U/L (46-116); Anion Gap 10.3 mmol/L (3-11); BUN 38 mg/dL (7-18); Bilirubin, Total 1.2 mg/dL (0.2-1.0); CO2 26.7 mmol/L (21.0-32.0); CREATININE 1.55 mg/dL (0.70-1.30); Chloride 107 mmol/L (98-107); Estimated GFR 43.14 (mL/min/1.73m2); Glucose 123 mg/dL (70-100); Potassium 3.7 mmol/L (3.5-5.1); Sodium 144 mmol/L (136-145); Total Protein 5.5 g/dL (6.4-8.2)
[2018-06-30 09:55] LABS: Absolute Neutrophil Count 0.25 k/cumm (1.2-6.7); White Blood Cell Count 1.19 k/cumm (4.4-10.8)
[2018-06-30 09:56] LABS: Diff Comment Diff Reviewed; Platelet Count 6 x1000/uL (130-400); RBC Morphology Normal
[2018-06-30] MEDS: Furosemide 40 MG TAB PO (16:53)
[2018-07-03 09:20] LABS: Abs Immature Grans 0.02 k/cumm (0.0-0.09); Absolute Lymphocyte Count 0.58 k/cumm (1.2-3.4); Absolute Monocyte Count 0.74 k/cumm (0.11-0.7); HCT 24.9 % (40.0-50.0); HGB 8.1 g/dL (13.5-17.5); Immature Grans % 1.4; Lymphocytes % 39.7; Mean Corp. HGB Concentration 32.5 g/dL (32.0-36.0); Mean Corpuscular Hemoglobin 28.9 pg (27.0-33.0); Mean Corpuscular Volume 88.9 fL (80-95); Mean Platelet Volume 8.4 fL (8.0-11.0); Monocytes % 50.7; Neutrophils % 8.2
[2018-07-03] MEDS: Normal Saline Flush 10 ML SYR IVP ×2 (09:20→13:45)
[2018-07-03 09:24] LABS: White Blood Cell Count 1.46 k/cumm (4.4-10.8)
[2018-07-03 09:25] LABS: Absolute Neutrophil Count 0.12 k/cumm (1.2-6.7)
[2018-07-03 09:32] LABS: ALT 38 U/L (12-78); AST 17 U/L (15-37); Albumin 2.8 g/dL (3.4-5.0); Alkaline Phosphatase 112 U/L (46-116); Anion Gap 9.5 mmol/L (3-11); BUN 36 mg/dL (7-18); Bilirubin, Total 1.2 mg/dL (0.2-1.0); CO2 27.5 mmol/L (21.0-32.0); Chloride 107 mmol/L (98-107); Estimated GFR 48.52 (mL/min/1.73m2); Glucose 128 mg/dL (70-100); Potassium 3.6 mmol/L (3.5-5.1); Sodium 144 mmol/L (136-145); Total Protein 5.4 g/dL (6.4-8.2)
[2018-07-03 09:43] LABS: Platelet Count 6 x1000/uL (130-400)
[2018-07-03 10:29] VITALS: BP 137/59; PULSE 53; RESP 18; TEMP 36.5; O2SAT 94
[2018-07-03 10:44] VITALS: BP 140/57; PULSE 65; RESP 16; TEMP 36.5; O2SAT 94
[2018-07-03 11:14] VITALS: BP 146/62; PULSE 63; RESP 18; TEMP 36.4; O2SAT 96
[2018-07-03 12:14] VITALS: BP 150/60; PULSE 68; RESP 18; TEMP 36.6; O2SAT 95
[2018-07-03 13:22] VITALS: BP 159/61; PULSE 65; RESP 18; TEMP 36.5; O2SAT 94
[2018-07-03] MEDS: Furosemide 40 MG TAB PO (13:25)
[2018-07-03 14:00] VITALS: BP 151/62; PULSE 67; RESP 18; TEMP 36.6; O2SAT 93
[2018-07-04 09:09] VITALS: BP 133/57; PULSE 67; RESP 18; TEMP 36.6; O2SAT 94
[2018-07-04] MEDS: Normal Saline Flush 10 ML SYR IVP (09:30)
[2018-07-04 10:10] VITALS: BP 145/56; PULSE 65; RESP 18; TEMP 36.5; O2SAT 98
[2018-07-04 12:21] VITALS: BP 133/57; PULSE 67; RESP 18; TEMP 36.6; O2SAT 94
[2018-07-07] VITALS (12 sets, daily range): BP systolic 136–163; BP diastolic 52–66; PULSE 57–73; RESP 17–19; TEMP 36.1–36.8; O2SAT 91–95
[2018-07-07] MEDS: Normal Saline Flush 10 ML SYR IVP ×2 (09:00→16:15)
[2018-07-07 09:12] LABS: Abs Immature Grans 0.01 k/cumm (0.0-0.09); Absolute Lymphocyte Count 0.44 k/cumm (1.2-3.4); Absolute Monocyte Count 0.68 k/cumm (0.11-0.7); HCT 22.9 % (40.0-50.0); HGB 7.5 g/dL (13.5-17.5); Immature Grans % 0.8; Lymphocytes % 34.9; Mean Corp. HGB Concentration 32.8 g/dL (32.0-36.0); Mean Corpuscular Hemoglobin 29.2 pg (27.0-33.0); Mean Corpuscular Volume 89.1 fL (80-95); Mean Platelet Volume 10.5 fL (8.0-11.0); Neutrophils % 10.3; RBC 2.57 m/cumm (4.50-6.00); RBC Distribution Width 13.5 % (11.8-14.1)
[2018-07-07 09:20] LABS: ALT 30 U/L (12-78); AST 20 U/L (15-37); Albumin 2.9 g/dL (3.4-5.0); Alkaline Phosphatase 108 U/L (46-116); Anion Gap 9.6 mmol/L (3-11); BUN 40 mg/dL (7-18); Bilirubin, Total 1.2 mg/dL (0.2-1.0); CO2 27.4 mmol/L (21.0-32.0); Calcium 7.9 mg/dL (8.5-10.1); Chloride 105 mmol/L (98-107); Estimated GFR 41.59 (mL/min/1.73m2); Glucose 124 mg/dL (70-100); Potassium 3.7 mmol/L (3.5-5.1); Sodium 142 mmol/L (136-145); Total Protein 5.4 g/dL (6.4-8.2)
[2018-07-07 09:42] LABS: White Blood Cell Count 1.26 k/cumm (4.4-10.8)
[2018-07-07 09:43] LABS: Absolute Neutrophil Count 0.13 k/cumm (1.2-6.7); Diff Comment Diff Reviewed; Hypochromasia 1+
[2018-07-07 09:44] LABS: Platelet Count 5 x1000/uL (130-400)
[2018-07-07] MEDS: Ondansetron 4 MG TAB 8 MG PO (11:26)
[2018-07-07] MEDS: Furosemide 40 MG TAB PO (16:15)
[2018-07-10 09:19] LABS: ALT 32 U/L (12-78); AST 16 U/L (15-37); Absolute Lymphocyte Count 0.56 k/cumm (1.2-3.4); Absolute Monocyte Count 0.64 k/cumm (0.11-0.7); Albumin 2.8 g/dL (3.4-5.0); Alkaline Phosphatase 97 U/L (46-116); Anion Gap 8.7 mmol/L (3-11); BUN 40 mg/dL (7-18); Bilirubin, Total 1.2 mg/dL (0.2-1.0); CO2 28.3 mmol/L (21.0-32.0); CREATININE 1.56 mg/dL (0.70-1.30); Calcium 8.2 mg/dL (8.5-10.1); Chloride 106 mmol/L (98-107); Estimated GFR 42.82 (mL/min/1.73m2); Glucose 125 mg/dL (70-100); HCT 25.2 % (40.0-50.0); HGB 8.4 g/dL (13.5-17.5); Lymphocytes % 42.1; Mean Corp. HGB Concentration 33.3 g/dL (32.0-36.0); Mean Corpuscular Hemoglobin 29.3 pg (27.0-33.0); Mean Corpuscular Volume 87.8 fL (80-95); Monocytes % 48.1; Neutrophils % 9.8; Potassium 3.7 mmol/L (3.5-5.1); RBC 2.87 m/cumm (4.50-6.00); RBC Distribution Width 13.8 % (11.8-14.1); Sodium 143 mmol/L (136-145); Total Protein 5.5 g/dL (6.4-8.2)
[2018-07-10 09:37] VITALS: BP 165/66; PULSE 74; RESP 18; TEMP 36.4; O2SAT 94
[2018-07-10 09:46] LABS: White Blood Cell Count 1.33 k/cumm (4.4-10.8)
[2018-07-10 09:47] LABS: Absolute Neutrophil Count 0.13 k/cumm (1.2-6.7)
[2018-07-10 09:48] LABS: Platelet Count 4 x1000/uL (130-400)
[2018-07-10 11:10] VITALS: BP 148/66; PULSE 63; RESP 18; TEMP 36.6; O2SAT 91
[2018-07-10 11:24] VITALS: BP 148/66; PULSE 62; RESP 18; TEMP 36.6; O2SAT 92
[2018-07-10] MEDS: Normal Saline Flush 10 ML SYR IVP (12:00)
[2018-07-10 12:08] VITALS: BP 159/67; PULSE 65; RESP 18; TEMP 36.5; O2SAT 94
[2018-07-10 13:04] VITALS: BP 138/59; PULSE 57; RESP 18; TEMP 36.8; O2SAT 94
[2018-07-10] MEDS: Furosemide 40 MG TAB PO (13:38)
[2018-07-10 13:49] VITALS: BP 149/57; PULSE 65; RESP 18; TEMP 36.6; O2SAT 94
[2018-07-11 09:26] VITALS: BP 143/63; PULSE 67; RESP 16; TEMP 36.7; O2SAT 95
[2018-07-11] MEDS: Normal Saline Flush 10 ML SYR IVP (09:29)
[2018-07-11] MEDS: Acetaminophen 325 MG TAB 650 MG PO (09:31)
[2018-07-11 09:50] VITALS: BP 157/64; PULSE 68; RESP 18; TEMP 36.1
[2018-07-11 09:55] VITALS: BP 143/57; PULSE 63; RESP 18; TEMP 36
[2018-07-11 11:09] LABS: Platelet Count 11 x1000/uL (130-400)
[2018-07-14] VITALS (9 sets, daily range): BP systolic 106–167; BP diastolic 39–76; PULSE 42–62; RESP 18–20; TEMP 36.2–36.6; O2SAT 94
[2018-07-14 09:05] LABS: Absolute Lymphocyte Count 0.45 k/cumm (1.2-3.4); Absolute Monocyte Count 0.52 k/cumm (0.11-0.7); HCT 23.8 % (40.0-50.0); HGB 7.8 g/dL (13.5-17.5); Lymphocytes % 40.5; Mean Corp. HGB Concentration 32.8 g/dL (32.0-36.0); Mean Corpuscular Volume 88.5 fL (80-95); Mean Platelet Volume 9.8 fL (8.0-11.0); Monocytes % 46.8; Neutrophils % 12.7; RBC 2.69 m/cumm (4.50-6.00); RBC Distribution Width 13.6 % (11.8-14.1)
[2018-07-14 09:22] LABS: ALT 37 U/L (12-78); AST 19 U/L (15-37); Albumin 2.8 g/dL (3.4-5.0); Alkaline Phosphatase 91 U/L (46-116); Anion Gap 7.5 mmol/L (3-11); BUN 36 mg/dL (7-18); Bilirubin, Total 1.2 mg/dL (0.2-1.0); CO2 28.5 mmol/L (21.0-32.0); CREATININE 1.43 mg/dL (0.70-1.30); Calcium 8.2 mg/dL (8.5-10.1); Chloride 106 mmol/L (98-107); Estimated GFR 47.35 (mL/min/1.73m2); Glucose 124 mg/dL (70-100); Potassium 3.6 mmol/L (3.5-5.1); Sodium 142 mmol/L (136-145); Total Protein 5.4 g/dL (6.4-8.2)
[2018-07-14 09:55] LABS: Platelet Count 3 x1000/uL (130-400); White Blood Cell Count 1.11 k/cumm (4.4-10.8)
[2018-07-14 09:56] LABS: Absolute Neutrophil Count 0.14 k/cumm (1.2-6.7)
[2018-07-14 09:57] LABS: Diff Comment Manual Differential; Poikilocytes 1+; Polychromasia Present
[2018-07-14] MEDS: Normal Saline Flush 10 ML SYR IVP (14:00)
[2018-07-14] MEDS: Furosemide 40 MG TAB PO (16:53)
== END 2018-07-15 23:59 | disposition home or self-care (01) ==
LOC: INF 01:39
PROVIDERS: PCP Family Medicine; Visit Provider Internal Medicine Hematology & Oncology
DX: D46.20 Refractory anemia with excess of blasts, unspecified (principal)
CPT/HCPCS: 36430; 36591; 80053; 86850; 86900; 86901; 86920; 85025; 85049; J8597; P9016; P9035

== ENCOUNTER 2018-08-15 09:30 | Outpatient (RCR) | payer MEDICARE, SELFPAY ==
[2018-07-17 09:24] LABS: Abs Immature Grans 0.01 k/cumm (0.0-0.09); HCT 26.1 % (40.0-50.0); HGB 8.7 g/dL (13.5-17.5); Mean Corp. HGB Concentration 33.3 g/dL (32.0-36.0); Mean Corpuscular Hemoglobin 29.2 pg (27.0-33.0); Mean Corpuscular Volume 87.6 fL (80-95); Mean Platelet Volume 8.5 fL (8.0-11.0); RBC 2.98 m/cumm (4.50-6.00); RBC Distribution Width 13.6 % (11.8-14.1)
[2018-07-17 09:49] LABS: ALT 44 U/L (12-78); AST 20 U/L (15-37); Albumin 2.9 g/dL (3.4-5.0); Alkaline Phosphatase 89 U/L (46-116); BUN 38 mg/dL (7-18); Bilirubin, Total 1.3 mg/dL (0.2-1.0); CREATININE 1.46 mg/dL (0.70-1.30); Calcium 8.2 mg/dL (8.5-10.1); Chloride 104 mmol/L (98-107); Estimated GFR 46.23 (mL/min/1.73m2); Glucose 119 mg/dL (70-100); Potassium 3.5 mmol/L (3.5-5.1); Sodium 142 mmol/L (136-145); Total Protein 5.5 g/dL (6.4-8.2)
[2018-07-17 10:06] LABS: White Blood Cell Count 1.32 k/cumm (4.4-10.8)
[2018-07-17 10:08] LABS: Absolute Neutrophil Count 0.49 k/cumm (1.2-6.7)
[2018-07-17 10:09] LABS: Absolute Basophil Count 0.01 k/cumm (0.0-0.2); Absolute Lymphocyte Count 0.49 k/cumm (1.2-3.4); Absolute Monocyte Count 0.29 k/cumm (0.11-0.7)
[2018-07-17 10:10] LABS: Diff Comment Manual Differential; Platelet Count 6 x1000/uL (130-400)
[2018-07-17 10:11] LABS: Anisocytosis 1+; Hypochromasia 2+
[2018-07-17] MEDS: Normal Saline Flush 10 ML SYR IVP (10:31)
[2018-07-17 13:30] VITALS: BP 170/54; PULSE 74; RESP 19; TEMP 36; O2SAT 94
[2018-07-21] VITALS (9 sets, daily range): BP systolic 100–159; BP diastolic 52–67; PULSE 60–74; RESP 17–18; TEMP 36–36.6; O2SAT 94–98
[2018-07-21 09:02] LABS: Abs Immature Grans 0.03 k/cumm (0.0-0.09); Absolute Lymphocyte Count 0.59 k/cumm (1.2-3.4); Absolute Monocyte Count 0.59 k/cumm (0.11-0.7); Absolute Neutrophil Count 0.52 k/cumm (1.2-6.7); HCT 23.2 % (40.0-50.0); HGB 7.9 g/dL (13.5-17.5); Immature Grans % 1.7; Lymphocytes % 34.1; Mean Corp. HGB Concentration 34.1 g/dL (32.0-36.0); Mean Corpuscular Hemoglobin 29.7 pg (27.0-33.0); Mean Corpuscular Volume 87.2 fL (80-95); Mean Platelet Volume 12.4 fL (8.0-11.0); Monocytes % 34.1; Neutrophils % 30.1; RBC 2.66 m/cumm (4.50-6.00); RBC Distribution Width 13.2 % (11.8-14.1)
[2018-07-21] MEDS: Normal Saline Flush 10 ML SYR IVP (09:06)
[2018-07-21 09:13] LABS: ALT 53 U/L (12-78); AST 22 U/L (15-37); Albumin 2.9 g/dL (3.4-5.0); Alkaline Phosphatase 87 U/L (46-116); Anion Gap 5.9 mmol/L (3-11); BUN 37 mg/dL (7-18); Bilirubin, Total 1.2 mg/dL (0.2-1.0); CO2 30.1 mmol/L (21.0-32.0); CREATININE 1.55 mg/dL (0.70-1.30); Calcium 8.4 mg/dL (8.5-10.1); Chloride 104 mmol/L (98-107); Estimated GFR 43.14 (mL/min/1.73m2); Glucose 124 mg/dL (70-100); Potassium 3.8 mmol/L (3.5-5.1); Sodium 140 mmol/L (136-145); Total Protein 5.6 g/dL (6.4-8.2)
[2018-07-21 09:21] LABS: White Blood Cell Count 1.73 k/cumm (4.4-10.8)
[2018-07-21 09:22] LABS: Platelet Count 8 x1000/uL (130-400)
[2018-07-21 09:24] LABS: Anisocytosis 1+; Diff Comment Agrees w/ Instrument
[2018-07-21 09:25] LABS: Hypochromasia 1+; Poikilocytes 1+
[2018-07-21] MEDS: Furosemide 40 MG TAB PO (15:29)
[2018-07-24 09:06] LABS: Abs Immature Grans 0.08 k/cumm (0.0-0.09); HCT 25.7 % (40.0-50.0); HGB 8.7 g/dL (13.5-17.5); Mean Corp. HGB Concentration 33.9 g/dL (32.0-36.0); Mean Corpuscular Hemoglobin 29.5 pg (27.0-33.0); Mean Corpuscular Volume 87.1 fL (80-95); RBC 2.95 m/cumm (4.50-6.00); RBC Distribution Width 13.3 % (11.8-14.1); White Blood Cell Count 2.77 k/cumm (4.4-10.8)
[2018-07-24 09:07] LABS: ALT 48 U/L (12-78); AST 20 U/L (15-37); Alkaline Phosphatase 87 U/L (46-116); Anion Gap 6.6 mmol/L (3-11); BUN 35 mg/dL (7-18); Bilirubin, Total 1.2 mg/dL (0.2-1.0); CO2 29.4 mmol/L (21.0-32.0); CREATININE 1.52 mg/dL (0.70-1.30); Calcium 8.6 mg/dL (8.5-10.1); Chloride 104 mmol/L (98-107); Estimated GFR 44.13 (mL/min/1.73m2); Glucose 125 mg/dL (70-100); Potassium 3.6 mmol/L (3.5-5.1); Sodium 140 mmol/L (136-145); Total Protein 5.7 g/dL (6.4-8.2)
[2018-07-24 09:21] LABS: Absolute Neutrophil Count 0.83 k/cumm (1.2-6.7); Platelet Count 6 x1000/uL (130-400)
[2018-07-24 09:22] LABS: Absolute Lymphocyte Count 0.91 k/cumm (1.2-3.4); Absolute Monocyte Count 0.97 k/cumm (0.11-0.7); Diff Comment Manual Differential; Polychromasia Present
[2018-07-24 14:26] VITALS: BP 158/62; PULSE 52; RESP 18; TEMP 36.5; O2SAT 95
[2018-07-24] MEDS: Normal Saline Flush 10 ML SYR IVP (15:00)
[2018-07-28] VITALS (14 sets, daily range): BP systolic 120–186; BP diastolic 43–78; PULSE 40–68; RESP 18–20; TEMP 36–36.7; O2SAT 94–98
[2018-07-28] MEDS: Normal Saline Flush 10 ML SYR IVP (08:30)
[2018-07-28 08:53] LABS: Abs Immature Grans 0.24 k/cumm (0.0-0.09); HCT 23.3 % (40.0-50.0); HGB 7.7 g/dL (13.5-17.5); Mean Corpuscular Hemoglobin 28.9 pg (27.0-33.0); Mean Corpuscular Volume 87.6 fL (80-95); Mean Platelet Volume 9.2 fL (8.0-11.0); RBC 2.66 m/cumm (4.50-6.00); RBC Distribution Width 13.1 % (11.8-14.1); White Blood Cell Count 3.59 k/cumm (4.4-10.8)
[2018-07-28 08:55] LABS: ALT 47 U/L (12-78); AST 21 U/L (15-37); Albumin 2.9 g/dL (3.4-5.0); Alkaline Phosphatase 85 U/L (46-116); Anion Gap 9.2 mmol/L (3-11); BUN 39 mg/dL (7-18); Bilirubin, Total 0.9 mg/dL (0.2-1.0); CO2 27.8 mmol/L (21.0-32.0); CREATININE 1.63 mg/dL (0.70-1.30); Calcium 8.3 mg/dL (8.5-10.1); Chloride 104 mmol/L (98-107); Estimated GFR 40.71 (mL/min/1.73m2); Glucose 125 mg/dL (70-100); Potassium 3.7 mmol/L (3.5-5.1); Sodium 141 mmol/L (136-145); Total Protein 5.7 g/dL (6.4-8.2)
[2018-07-28 09:13] LABS: Platelet Count 7 x1000/uL (130-400)
[2018-07-28 09:14] LABS: Absolute Lymphocyte Count 1.01 k/cumm (1.2-3.4); Absolute Monocyte Count 1.08 k/cumm (0.11-0.7); Absolute Neutrophil Count 1.26 k/cumm (1.2-6.7)
[2018-07-28 09:15] LABS: Diff Comment Manual Differential; RBC Morphology Normal
[2018-07-28] MEDS: Furosemide 40 MG TAB (15:28)
[2018-07-31 09:01] LABS: Abs Immature Grans 0.36 k/cumm (0.0-0.09); HGB 8.5 g/dL (13.5-17.5); Mean Corpuscular Hemoglobin 29.9 pg (27.0-33.0); Mean Platelet Volume 12.6 fL (8.0-11.0); RBC 2.84 m/cumm (4.50-6.00); RBC Distribution Width 13.4 % (11.8-14.1); White Blood Cell Count 4.15 k/cumm (4.4-10.8)
[2018-07-31 09:17] LABS: ALT 50 U/L (12-78); AST 24 U/L (15-37); Albumin 2.9 g/dL (3.4-5.0); Alkaline Phosphatase 89 U/L (46-116); Anion Gap 10.1 mmol/L (3-11); BUN 38 mg/dL (7-18); Bilirubin, Total 1.1 mg/dL (0.2-1.0); CO2 26.9 mmol/L (21.0-32.0); CREATININE 1.51 mg/dL (0.70-1.30); Calcium 8.2 mg/dL (8.5-10.1); Chloride 105 mmol/L (98-107); Estimated GFR 44.46 (mL/min/1.73m2); Glucose 125 mg/dL (70-100); Potassium 3.9 mmol/L (3.5-5.1); Sodium 142 mmol/L (136-145); Total Protein 5.6 g/dL (6.4-8.2)
[2018-07-31 09:32] LABS: Platelet Count 4 x1000/uL (130-400)
[2018-07-31 09:33] LABS: Absolute Neutrophil Count 1.58 k/cumm (1.2-6.7)
[2018-07-31 09:34] LABS: Absolute Monocyte Count 0.95 k/cumm (0.11-0.7); Atypical Lymphocytes % 0; Diff Comment Manual Differential; Other Cells 0; Promyelocytes % 0 %; RBC Morphology Normal
[2018-07-31 14:04] VITALS: BP 143/52; PULSE 45; RESP 18; TEMP 36.7; O2SAT 96
[2018-08-04] VITALS (11 sets, daily range): BP systolic 123–155; BP diastolic 43–79; PULSE 45–76; RESP 17–18; TEMP 36–36.7; O2SAT 94–97
[2018-08-04] MEDS: Normal Saline Flush 10 ML SYR IVP (09:07)
[2018-08-04 09:10] LABS: Abs Immature Grans 0.53 k/cumm (0.0-0.09); HGB 7.2 g/dL (13.5-17.5); Mean Corp. HGB Concentration 34.3 g/dL (32.0-36.0); Mean Corpuscular Volume 87.5 fL (80-95); Mean Platelet Volume 7.6 fL (8.0-11.0); RBC Distribution Width 13.2 % (11.8-14.1); White Blood Cell Count 5.42 k/cumm (4.4-10.8)
[2018-08-04 09:20] LABS: ALT 52 U/L (12-78); AST 24 U/L (15-37); Albumin 2.8 g/dL (3.4-5.0); Alkaline Phosphatase 86 U/L (46-116); Anion Gap 8.3 mmol/L (3-11); BUN 38 mg/dL (7-18); Bilirubin, Total 0.9 mg/dL (0.2-1.0); CO2 26.7 mmol/L (21.0-32.0); CREATININE 1.61 mg/dL (0.70-1.30); Calcium 8.3 mg/dL (8.5-10.1); Chloride 104 mmol/L (98-107); Estimated GFR 41.29 (mL/min/1.73m2); Glucose 134 mg/dL (70-100); Potassium 3.9 mmol/L (3.5-5.1); Sodium 139 mmol/L (136-145); Total Protein 5.6 g/dL (6.4-8.2)
[2018-08-04 09:30] LABS: Absolute Lymphocyte Count 1.08 k/cumm (1.2-3.4); Absolute Neutrophil Count 2.49 k/cumm (1.2-6.7); Platelet Count 4 x1000/uL (130-400)
[2018-08-04 09:31] LABS: Absolute Eosinophil Count 0.11 k/cumm (0.0-0.7); Absolute Monocyte Count 1.25 k/cumm (0.11-0.7); Anisocytosis 2+; Diff Comment Manual Differential; Hypochromasia 2+
[2018-08-04 09:32] LABS: Poikilocytes 2+
[2018-08-04] MEDS: Furosemide 40 MG TAB PO (16:05)
[2018-08-07] VITALS (11 sets, daily range): BP systolic 123–165; BP diastolic 51–75; PULSE 62–74; RESP 18; TEMP 36.1–36.6; O2SAT 95–98
[2018-08-07 09:14] LABS: HCT 23.9 % (40.0-50.0); HGB 8.2 g/dL (13.5-17.5); Mean Corp. HGB Concentration 34.3 g/dL (32.0-36.0); Mean Corpuscular Hemoglobin 29.8 pg (27.0-33.0); Mean Corpuscular Volume 86.9 fL (80-95); Mean Platelet Volume 12.9 fL (8.0-11.0); RBC 2.75 m/cumm (4.50-6.00); RBC Distribution Width 13.6 % (11.8-14.1); White Blood Cell Count 7.16 k/cumm (4.4-10.8)
[2018-08-07 09:22] LABS: ALT 50 U/L (12-78); AST 25 U/L (15-37); Albumin 2.9 g/dL (3.4-5.0); Alkaline Phosphatase 107 U/L (46-116); Anion Gap 11.4 mmol/L (3-11); BUN 40 mg/dL (7-18); Bilirubin, Total 0.8 mg/dL (0.2-1.0); CO2 24.6 mmol/L (21.0-32.0); CREATININE 1.53 mg/dL (0.70-1.30); Calcium 8.6 mg/dL (8.5-10.1); Chloride 104 mmol/L (98-107); Estimated GFR 43.79 (mL/min/1.73m2); Glucose 131 mg/dL (70-100); Potassium 3.9 mmol/L (3.5-5.1); Sodium 140 mmol/L (136-145)
[2018-08-07 09:32] LABS: Absolute Basophil Count 0.07 k/cumm (0.0-0.2); Absolute Eosinophil Count 0.07 k/cumm (0.0-0.7); Absolute Lymphocyte Count 1.86 k/cumm (1.2-3.4); Absolute Monocyte Count 1.22 k/cumm (0.11-0.7); Absolute Neutrophil Count 3.37 k/cumm (1.2-6.7); Diff Comment Manual Differential; RBC Morphology Normal
[2018-08-07 09:33] LABS: Platelet Count 4 x1000/uL (130-400)
[2018-08-07] MEDS: Furosemide 40 MG TAB PO (17:02)
[2018-08-07] MEDS: Normal Saline Flush 10 ML SYR IVP (17:02)
[2018-08-12] VITALS (13 sets, daily range): BP systolic 125–164; BP diastolic 52–69; PULSE 56–75; RESP 18–20; TEMP 36–36.6; O2SAT 93–98
[2018-08-12 09:01] LABS: Abs Immature Grans 1.11 k/cumm (0.0-0.09); HCT 23.3 % (40.0-50.0); HGB 7.8 g/dL (13.5-17.5); Mean Corp. HGB Concentration 33.5 g/dL (32.0-36.0); Mean Corpuscular Hemoglobin 28.7 pg (27.0-33.0); Mean Corpuscular Volume 85.7 fL (80-95); Mean Platelet Volume 10.8 fL (8.0-11.0); RBC 2.72 m/cumm (4.50-6.00); RBC Distribution Width 14.3 % (11.8-14.1); White Blood Cell Count 7.03 k/cumm (4.4-10.8)
[2018-08-12 09:14] LABS: ALT 54 U/L (12-78); AST 26 U/L (15-37); Albumin 2.8 g/dL (3.4-5.0); Alkaline Phosphatase 105 U/L (46-116); BUN 43 mg/dL (7-18); Bilirubin, Total 0.8 mg/dL (0.2-1.0); CREATININE 1.67 mg/dL (0.70-1.30); Calcium 8.3 mg/dL (8.5-10.1); Chloride 105 mmol/L (98-107); Estimated GFR 39.58 (mL/min/1.73m2); Glucose 144 mg/dL (70-100); Potassium 3.9 mmol/L (3.5-5.1); Sodium 142 mmol/L (136-145); Total Protein 5.7 g/dL (6.4-8.2)
[2018-08-12 09:31] LABS: Absolute Eosinophil Count 0.07 k/cumm (0.0-0.7); Absolute Lymphocyte Count 0.98 k/cumm (1.2-3.4); Absolute Neutrophil Count 3.16 k/cumm (1.2-6.7); Platelet Count 3 x1000/uL (130-400)
[2018-08-12 09:32] LABS: Diff Comment Manual Differential
[2018-08-12 09:33] LABS: RBC Morphology Normal
[2018-08-12] MEDS: Furosemide 40 MG TAB PO (15:52)
[2018-08-12] MEDS: Normal Saline Flush 10 ML SYR IVP (15:52)
[2018-08-15] VITALS (12 sets, daily range): BP systolic 134–175; BP diastolic 51–69; PULSE 44–79; RESP 16–20; TEMP 36.4–36.7; O2SAT 92–98
[2018-08-15] MEDS: Normal Saline Flush 10 ML SYR IVP (08:49)
[2018-08-15 09:11] LABS: Abs Immature Grans 1.69 k/cumm (0.0-0.09); HCT 25.1 % (40.0-50.0); HGB 8.3 g/dL (13.5-17.5); Mean Corp. HGB Concentration 33.1 g/dL (32.0-36.0); Mean Corpuscular Hemoglobin 28.8 pg (27.0-33.0); Mean Corpuscular Volume 87.2 fL (80-95); Mean Platelet Volume 10.8 fL (8.0-11.0); RBC 2.88 m/cumm (4.50-6.00); RBC Distribution Width 14.6 % (11.8-14.1); White Blood Cell Count 9.56 k/cumm (4.4-10.8)
[2018-08-15 09:23] LABS: ALT 66 U/L (12-78); AST 33 U/L (15-37); Albumin 2.7 g/dL (3.4-5.0); Alkaline Phosphatase 98 U/L (46-116); Anion Gap 8.7 mmol/L (3-11); BUN 44 mg/dL (7-18); Bilirubin, Total 0.9 mg/dL (0.2-1.0); CO2 27.3 mmol/L (21.0-32.0); CREATININE 1.69 mg/dL (0.70-1.30); Calcium 8.2 mg/dL (8.5-10.1); Chloride 106 mmol/L (98-107); Estimated GFR 39.04 (mL/min/1.73m2); Glucose 129 mg/dL (70-100); Sodium 142 mmol/L (136-145); Total Protein 5.5 g/dL (6.4-8.2)
[2018-08-15 10:11] LABS: Platelet Count 4 x1000/uL (130-400)
[2018-08-15 10:12] LABS: Absolute Lymphocyte Count 1.63 k/cumm (1.2-3.4); Absolute Monocyte Count 0.67 k/cumm (0.11-0.7); Absolute Neutrophil Count 5.16 k/cumm (1.2-6.7); Promyelocytes % 2 %
[2018-08-15 10:14] LABS: Diff Comment Manual Differential; Other Cells 4
[2018-08-15 10:15] LABS: RBC Morphology Normal
[2018-08-15] MEDS: Furosemide 40 MG TAB PO (15:58)
== END 2018-08-15 23:59 | disposition home or self-care (01) ==
LOC: INF 09:30
PROVIDERS: PCP Family Medicine; Visit Provider Internal Medicine Hematology & Oncology
DX: D46.20 Refractory anemia with excess of blasts, unspecified (principal)
CPT/HCPCS: 36430; 36591; 80053; 86850; 86900; 86901; 86920; 85025; P9016; P9035